=== PATIENT | male | born 1950 | race Caucasian/White ===

== ENCOUNTER 2017-04-17 23:31 | Emergency (ER) | payer MEDICARE, OTHER ==
[~2017-04-17] VITALS: Ht 172.7 cm; Wt 78.0 kg
[~2017-04-17 23:31] MED LIST: ASPI81TA3 PO; ATOR40TA68 PO; CLOP75TA4 PO; FAMO20TA18 PO; METO50TA16 PO; TAMS-14 PO
[2017-04-17 23:33] VITALS: Ht 172.7 cm; Wt 78.0 kg
--- NOTE | 2017-04-18 01:46 | ERA ---
ER Documentation Chief Complaint Date/Time DATE: 04/18/17 TIME: 01:45 Chief Complaint Intermittent chest pain HPI The patient is a 66-year-old male, presenting to the ER because of intermittent chest pain for the last 5-6 days. He had a negative stress test about 4 days ago. He went to see his doctor 3 days ago because of recurrent symptoms who assured him. He came to the ER because of recurrent symptoms. He denies any chest pain at this time. He does not smoke nor drink Past medical history: CAD, gout, dyslipidemia, hypertension, BPH Past surgical history: Stent PCI ROS All systems reviewed and are negative except as per history of present illness. Medications Home Meds Active Scripts Atorvastatin* (Atorvastatin*) 40 Mg Tablet, 40 MG PO DAILY@21 for 30 Days, TAB 5 Refills Prov:TENA AGUILAR S. 07/21/16 Famotidine* (Famotidine*) 20 Mg Tablet, 20 MG PO DAILY for 30 Days, TAB 3 Refills Prov:TENA AGUILAR S. 07/21/16 Clopidogrel Bisulfate* (Clopidogrel Bisulfate*) 75 Mg Tablet, 75 MG PO DAILY for 30 Days, TAB 8 Refills Prov:TENA AGUILAR S. 07/21/16 Aspirin* (Aspirin* Chew) 81 Mg Tab.chew, 81 MG PO DAILY for 30 Days, TAB.CHEW 8 Refills Prov:JEFFTENA S. 07/21/16 Metoprolol Succinate* (Toprol XL*) 50 Mg Tab.er.24h, 50 MG PO DAILY for 30 Days , TAB 4 Refills Prov:TENA AGUILAR S. 07/21/16 Reported Medications Tamsulosin Hcl* (Flomax*) 0.4 Mg Cap.er.24h, 0.4 MG PO BID, CAP 12/08/14 Allergies Allergies: Coded Allergies: penicillin G (Verified Allergy, Severe, 08/24/16) Penicillins (Verified Allergy, Unknown, 08/24/16) PMhx/Soc History of Surgery: Yes (KIDNEY CYST REMOVED) Anesthesia Reaction: No Hx Neurological Disorder: No Hx Respiratory Disorders: No Hx Cardiac Disorders: Yes (CAD) Hx Psychiatric Problems: No Hx Miscellaneous Medical Probl: Yes (GOUT) Hx Alcohol Use: No Hx Substance Use: No Hx Tobacco Use: No Physical Exam Vitals Vital Signs Date Time Temp Pulse Resp B/P Pulse Ox O2 Delivery O2 Flow Rate FiO2 04/18/17 04:45 51 14 146/69 99 Room Air 04/18/17 04:00 47 12 144/71 98 Room Air 04/18/17 02:00 49 12 138/64 98 Room Air 04/17/17 23:33 98.8 60 18 178/84 97 Physical Exam Const: No acute distress. Head: Atraumatic. Eyes: Normal Conjunctiva. ENT: Normal External Ears, Nose and Mouth. Neck: Full range of motion. No meningismus. Resp: Clear to auscultation bilaterally. Cardio: Regular rate and rhythm, no murmurs. Abd: Soft, non distended, normal bowel sounds, non tender. Skin: No petechiae or rashes. Back: No midline or flank tenderness. Ext: No cyanosis, or edema. Neur: Awake and alert. No focal deficit Psych: Normal Mood and Affect. Result Diagram: 04/18/17 0206 04/18/17 0206 Results 24 hrs Laboratory Tests Test 04/18/17 02:06 04/18/17 03:12 White Blood Count 6.510^3/ul Red Blood Count 4.4810^6/ul Hemoglobin 12.2g/dl Hematocrit 39.0% Mean Corpuscular Volume 87.1fl Mean Corpuscular Hemoglobin 27.2pg Mean Corpuscular Hemoglobin Concent 31.3g/dl Red Cell Distribution Width 14.6% Platelet Count 52190^3/UL Mean Platelet Volume 10.1fl Neutrophils % 62.9% Lymphocytes % 24.7% Monocytes % 7.7% Eosinophils % 3.4% Basophils % 0.8% Nucleated Red Blood Cells % 0.0/100WBC Neutrophils # 4.110^3/ul Lymphocytes # 1.610^3/ul Monocytes # 0.510^3/ul Eosinophils # 0.210^3/ul Basophils # 0.110^3/ul Nucleated Red Blood Cells # 0.010^3/ul Prothrombin Time 13.1Sec Prothrombin Time Ratio 1.0 INR International Normalized Ratio 0.99 Activated Partial Thromboplast Time 30.7Sec Sodium Level 143mmol/L Potassium Level 4.9mmol/L Chloride Level 115mmol/L Carbon Dioxide Level 24mmol/L Anion Gap 9 Blood Urea Nitrogen 46mg/dl Creatinine 2.27mg/dl Glucose Level 88mg/dl Calcium Level 8.8mg/dl Troponin I < 0.012ng/ml < 0.012ng/ml Creatine Kinase 360IU/L Creatine Kinase Index 0.5 Creatinine Kinase MB (Mass) 1.76ng/ml Procedures/MDM [place] [id number] Radiology Main Line: [phone] DIAGNOSTIC IMAGING REPORT Patient: PRISCILA MEDINA : 1950 Age: 66 Sex: M MR #: [id number] DOS: 04/18/17 0147 Ordering MD: SHAKEEL MARTINEZ MD Location: E/R Room/Bed: PROCEDURE: CHEST - 1 VIEW CLINICAL INDICATION: 66-year-old male with chest pain. TECHNIQUE: A single frontal AP semi-erect portable view of the chest was performed. The images were reviewed on a PACS workstation. COMPARISON: Chest x-ray July 18, 2016. FINDINGS: The cardiomediastinal silhouette has a normal appearance. There is no evidence for an infiltrate. There is no evidence for congestive heart failure. There is no evidence for pneumothorax. The osseous structures are intact. IMPRESSION: No evidence for active cardiopulmonary disease. .Fidencio Flores MD, MD Date Time Electronically viewed and signed by .Fidencio Flores MD, MD on 04/18/2017 03:15 .M/ CC: SHAKEEL MARTINEZ MD EKG: Read by emergency physician Rate/Rhythm: Normal Sinus Rhythm 57 beats/min QRS, ST, T-waves: No ST elevation, no T inversion, right ruby axis Impression: Abnormal EKG MEDICAL MAKING DECISION: The patient is a 66-year-old male with multiple cardiac risk factors, presenting with acute intermittent chest pain that is concerning for ACS. The differential diagnoses considered include but are not limited to acute coronary syndrome, acute myocardial infarction, pericarditis, pulmonary embolism , aortic dissection, pneumonia, pleural effusion, pneumothorax, GERD, chest wall pain. Departure Diagnosis: Primary Impression: Chest pain Condition: Stable Comments I recommended admitting the patient for further testing, however he declined The patient signed out AGAINST MEDICAL ADVICE. Risks, benefits, alternatives were explained to the patient. Risks include but not limited to and permanent disability SHAKEEL MARTINEZ MD April 18, 2017 01:46
[2017-04-18 02:28] LABS: ADD SCAN DIFF NO
[2017-04-18 02:32] LABS: BASOPHIL # 0.1 10^3/ul (0.0-0.1); BASOPHILS % 0.8 % (0.0-2.0); EOSINOPHILS # 0.2 10^3/ul (0.0-0.5); EOSINOPHILS % 3.4 % (0.0-7.0); HEMOGLOBIN 12.2 g/dl (14.0-18.0); LYMPHOCYTES # 1.6 10^3/ul (0.8-2.9); LYMPHOCYTES % 24.7 % (15.0-51.0); MEAN CORPUSCULAR HEMOGLOBIN 27.2 pg (29.0-33.0); MEAN CORPUSCULAR HGB CONC 31.3 g/dl (32.0-37.0); MEAN CORPUSCULAR VOLUME 87.1 fl (82.0-101.0); MEAN PLATELET VOLUME 10.1 fl (7.4-10.4); MONOCYTE # 0.5 10^3/ul (0.3-0.9); MONOCYTES % 7.7 % (0.0-11.0); NEUTROPHIL # 4.1 10^3/ul (1.6-7.5); NEUTROPHILS % 62.9 % (39.0-77.0); PLATELET COUNT 229 10^3/UL (140-415); RED BLOOD COUNT 4.48 10^6/ul (4.70-6.10); RED CELL DISTRIBUTION WIDTH 14.6 % (11.5-14.5); WHITE BLOOD COUNT 6.5 10^3/ul (4.8-10.8)
[2017-04-18 02:47] LABS: CHLORIDE 115 mmol/L (97-110); INR 0.99; PROTIME 13.1 Sec (12.2-14.2)
[2017-04-18 02:48] LABS: PARTIAL THROMBOPLASTIN TIME 30.7 Sec (25.0-35.0); POTASSIUM 4.9 mmol/L (3.5-5.1); SODIUM 143 mmol/L (135-144)
[2017-04-18 02:50] LABS: CREATININE 2.27 mg/dl (0.61-1.24)
[2017-04-18 02:51] LABS: ANION GAP 9 (8-16); BLOOD UREA NITROGEN 46 mg/dl (7-20); CALCIUM 8.8 mg/dl (8.4-10.2); CARBON DIOXIDE 24 mmol/L (21-31); GLUCOSE 88 mg/dl (70-220)
--- NOTE | 2017-04-18 03:16 | RADRPT ---
PROCEDURE: CHEST - 1 VIEW CLINICAL INDICATION: 66-year-old male with chest pain. TECHNIQUE: A single frontal AP semi-erect portable view of the chest was performed. The images we re reviewed on a PACS workstation. COMPARISON: Chest x-ray July 18, 2016. FINDINGS: The cardiomediastinal silhouette has a normal appearance. There is no evidence for an infiltrate. There is no evidence for congestive heart failure. There is no evidence for pneumothorax. The osseou s structures are intact. IMPRESSION: No evidence for active cardiopulmonary disease. .Fidencio Flores MD, Date Time Electronically viewed and signed by .Fidencio Flores MD, on 04/18/2017 03:15 .M/
[2017-04-18 03:28] LABS: TROPONIN-I < 0.012 ng/ml (0.00-0.12)
[2017-04-18 03:58] LABS: CREATINE KINASE 360 IU/L (23-200)
[2017-04-18 04:45] VITALS: BP 146/69; PULSE 51; RESP 14
[2017-04-18 04:45] LABS: CK-MB 1.76 ng/ml (0.0-2.4); TROPONIN-I < 0.012 ng/ml (0.00-0.12)
== END 2017-04-18 04:50 | disposition left against medical advice (07) ==
LOC: E/R 23:31
DX: R07.9 Chest pain, unspecified (principal); I25.10 Atherosclerotic heart disease of native coronary artery without angina pectoris; I10 Essential (primary) hypertension; Z79.82 Long term (current) use of aspirin; Z98.61 Coronary angioplasty status
CPT/HCPCS: 36415; 71010; 80048; 82550; 82553; 84484; 85025; 85610; 85730; 93005

== ENCOUNTER → 2017-04-20 | Outpatient (CLI) | payer MEDICARE, OTHER | END | disposition home or self-care (01) | LOC: CRE 13:15 | PROVIDERS: ATTEND Internal Medicine Interventional Cardiology | DX: I25.2 Old myocardial infarction (principal); Z98.61 Coronary angioplasty status | CPT/HCPCS: 93797 ==

== ENCOUNTER 2017-09-02 21:26 | Inpatient (IN) | payer MEDICARE, OTHER ==
[~2017-09-02] VITALS: Ht 170.2 cm; Wt 76.1 kg
[~2017-09-02 21:26] MED LIST changes: +METO-319 PO; -METO50TA16 PO
[2017-09-02] MEDS ORDERED: ASPIRIN 325 MG TAB PO STA (21:56)
[2017-09-02] MEDS ORDERED: NITROGLYCERIN 2% 1 GM OINT PKT TD STA (21:56)
[2017-09-02] MEDS ORDERED: ONDANSETRON 4 MG INJ IV STA (21:56)
[2017-09-02] MEDS ORDERED: morphine 4 MG/ML VIAL IV STA (21:56)
--- NOTE | 2017-09-02 22:14 | ERA ---
ER Documentation Chief Complaint Date/Time DATE: 09/02/17 TIME: 22:13 Chief Complaint chest pain HPI The patient is a 67-year-old male, presenting to the ER because of left upper back pain radiating to the left upper chest that began about 7 PM while he was watching TV. He had similar symptoms previously, is 12/31, no aggravating or relieving factor, denies chest pain with exertion/vomiting/diaphoresis, denies abdominal pain, vomiting, dysuria, diarrhea. He does not smoke nor drink Past medical history: Dyslipidemia, hypertension, BPH, CAD, gout, chronic kidney disease Past surgical history: He had total 8 stents PCI, last stent was about a year ago ROS All systems reviewed and are negative except as per history of present illness. Medications Home Meds Active Scripts Atorvastatin* (Atorvastatin*) 40 Mg Tablet, 40 MG PO DAILY@21 for 30 Days, TAB 5 Refills Prov:TENA AGUILAR S. 07/21/16 Famotidine* (Famotidine*) 20 Mg Tablet, 20 MG PO DAILY for 30 Days, TAB 3 Refills Prov:TENA AGUILAR S. 07/21/16 Clopidogrel Bisulfate* (Clopidogrel Bisulfate*) 75 Mg Tablet, 75 MG PO DAILY for 30 Days, TAB 8 Refills Prov:JEFFTENA S. 07/21/16 Aspirin* (Aspirin* Chew) 81 Mg Tab.chew, 81 MG PO DAILY for 30 Days, TAB.CHEW 8 Refills Prov:JEFFTENA S. 07/21/16 Metoprolol Succinate* (Toprol XL*) 50 Mg Tab.er.24h, 50 MG PO DAILY for 30 Days , TAB 4 Refills Prov:TENA AGUILAR S. 07/21/16 Reported Medications Tamsulosin Hcl* (Flomax*) 0.4 Mg Cap.er.24h, 0.4 MG PO BID, CAP 12/08/14 Allergies Allergies: Coded Allergies: penicillin G (Verified Allergy, Severe, 08/24/16) Penicillins (Verified Allergy, Unknown, 08/24/16) PMhx/Soc History of Surgery: Yes (KIDNEY CYST REMOVED, 8 Stents placed) Anesthesia Reaction: No Hx Neurological Disorder: No Hx Respiratory Disorders: No Hx Cardiac Disorders: Yes (CAD, 8 Stents placed, HTN) Hx Psychiatric Problems: No Hx Miscellaneous Medical Probl: Yes (GOUT) Hx Alcohol Use: No Hx Substance Use: No Hx Tobacco Use: No Smoking Status: Never smoker Physical Exam Vitals Vital Signs Date Time Temp Pulse Resp B/P Pulse Ox O2 Delivery O2 Flow Rate FiO2 09/02/17 22:23 116/56 09/02/17 21:35 98.3 63 16 142/75 96 Physical Exam Const: No acute distress. Head: Atraumatic. Eyes: Normal Conjunctiva. ENT: Normal External Ears, Nose and Mouth. Neck: Full range of motion. No meningismus. Resp: Clear to auscultation bilaterally. Cardio: Regular rate and rhythm. Abd: Soft, non distended, normal bowel sounds, non tender. Skin: No petechiae or rashes. Back: No midline or flank tenderness. Ext: No cyanosis, or edema. Neur: Awake and alert. No focal deficit Psych: Normal Mood and Affect. Result Diagram: 09/02/17219909/02/172199 Results 24 hrs Laboratory Tests Test 09/02/17 22:00 White Blood Count 5.510^3/ul Red Blood Count 4.5810^6/ul Hemoglobin 13.2g/dl Hematocrit 41.1% Mean Corpuscular Volume 89.7fl Mean Corpuscular Hemoglobin 28.8pg Mean Corpuscular Hemoglobin Concent 32.1g/dl Red Cell Distribution Width 14.8% Platelet Count 96435^3/UL Mean Platelet Volume 9.8fl Neutrophils % 70.1% Lymphocytes % 16.6% Monocytes % 8.9% Eosinophils % 3.1% Basophils % 0.4% Nucleated Red Blood Cells % 0.0/100WBC Neutrophils # 3.910^3/ul Lymphocytes # 0.910^3/ul Monocytes # 0.510^3/ul Eosinophils # 0.210^3/ul Basophils # 0.010^3/ul Nucleated Red Blood Cells # 0.010^3/ul Prothrombin Time 12.5Sec Prothrombin Time Ratio 1.0 INR International Normalized Ratio 0.93 Activated Partial Thromboplast Time 30.3Sec Sodium Level 139mmol/L Potassium Level 4.5mmol/L Chloride Level 109mmol/L Carbon Dioxide Level 21mmol/L Anion Gap 14 Blood Urea Nitrogen 44mg/dl Creatinine 2.91mg/dl Glucose Level 119mg/dl Calcium Level 8.4mg/dl Total Bilirubin 0.3mg/dl Direct Bilirubin 0.00mg/dl Indirect Bilirubin 0.3mg/dl Aspartate Amino Transf (AST/SGOT) 23IU/L Alanine Aminotransferase (ALT/SGPT) 29IU/L Alkaline Phosphatase 84IU/L Troponin I < 0.012ng/ml Total Protein 7.2g/dl Albumin 3.7g/dl Globulin 3.50g/dl Albumin/Globulin Ratio 1.05 Current Medications Medications (Trade) Dose Ordered Sig/Jorge Route PRN Reason Start Time Stop Time Status Last Admin Dose Admin Aspirin (Aspirin) 325 mg ONCE STAT PO 09/02/17 21:56 09/02/17 21:57 DC 09/02/17 22:28 Nitroglycerin (Nitroglycerin 2% Oint) 1 inch ONCE STAT TD 09/02/17 21:56 09/02/17 21:57 DC Morphine Sulfate (morphine) 4 mg ONCE STAT IV 09/02/17 21:56 09/02/17 21:57 Cancel Ondansetron HCl (Zofran Inj) 4 mg ONCE STAT IV 09/02/17 21:56 09/02/17 21:57 Cancel Procedures/MDM EK hrs. read by emergency physician Rate/Rhythm: Normal Sinus Rhythm 64 beats/min QRS, ST, T-waves: No ST elevation, no T inversion sinus arrhythmia, inferior Q waves Impression: Abnormal EKG EK hrs. read by emergency physician Rate/Rhythm: Normal Sinus Rhythm 62 beats/min QRS, ST, T-waves: No ST elevation, no T inversion sinus arrhythmia, RVH Impression: Abnormal EKG MEDICAL MAKING DECISION: The patient is a 67-year-old male with multiple cardiac risk factors, with acute chest pain that is concerning for ACS. He was treated with aspirin 325 mg p.o. and 1 inch of nitroglycerin for acute chest pain with good response. The differential diagnoses considered include but are not limited to acute coronary syndrome, acute myocardial infarction, pericarditis, pulmonary embolism , aortic dissection, pneumonia, pleural effusion, pneumothorax, GERD, chest wall pain. Departure Diagnosis: Primary Impression: Chest pain Additional Impression: Anemia Condition: Stable Comments I discussed the findings with the patient. I discussed the patient with the hospitalist Dr. Roche at 11:10 PM who was made aware of the lab, the treatment, the patient condition. The patient is admitted to SHAKEEL Cui MD Sep 02, 2017 22:14
[2017-09-02 22:19] LABS: BASOPHILS % 0.4 % (0.0-2.0); EOSINOPHILS # 0.2 10^3/ul (0.0-0.5); EOSINOPHILS % 3.1 % (0.0-7.0); HEMATOCRIT 41.1 % (42.0-52.0); HEMOGLOBIN 13.2 g/dl (14.0-18.0); LYMPHOCYTES # 0.9 10^3/ul (0.8-2.9); LYMPHOCYTES % 16.6 % (15.0-51.0); MEAN CORPUSCULAR HEMOGLOBIN 28.8 pg (29.0-33.0); MEAN CORPUSCULAR HGB CONC 32.1 g/dl (32.0-37.0); MEAN CORPUSCULAR VOLUME 89.7 fl (82.0-101.0); MEAN PLATELET VOLUME 9.8 fl (7.4-10.4); MONOCYTE # 0.5 10^3/ul (0.3-0.9); MONOCYTES % 8.9 % (0.0-11.0); NEUTROPHIL # 3.9 10^3/ul (1.6-7.5); NEUTROPHILS % 70.1 % (39.0-77.0); PLATELET COUNT 194 10^3/UL (140-415); RED BLOOD COUNT 4.58 10^6/ul (4.70-6.10); RED CELL DISTRIBUTION WIDTH 14.8 % (11.5-14.5); WHITE BLOOD COUNT 5.5 10^3/ul (4.8-10.8)
[2017-09-02 22:37] LABS: INR 0.93; PARTIAL THROMBOPLASTIN TIME 30.3 Sec (25.0-35.0); PROTIME 12.5 Sec (12.2-14.2)
[2017-09-02 22:40] LABS: ALANINE AMINOTRANSFERASE 29 IU/L (13-69); ALBUMIN 3.7 g/dl (3.3-4.9); ALBUMIN/GLOBULIN RATIO 1.05; ALKALINE PHOSPHATASE 84 IU/L (42-121); ANION GAP 14 (8-16); ASPARTATE AMINO TRANSFERASE 23 IU/L (15-46); BILIRUBIN,INDIRECT 0.3 mg/dl (0-1.1); BILIRUBIN,TOTAL 0.3 mg/dl (0.2-1.3); BLOOD UREA NITROGEN 44 mg/dl (7-20); CALCIUM 8.4 mg/dl (8.4-10.2); CARBON DIOXIDE 21 mmol/L (21-31); CHLORIDE 109 mmol/L (97-110); CREATININE 2.91 mg/dl (0.61-1.24); GLUCOSE 119 mg/dl (70-220); POTASSIUM 4.5 mmol/L (3.5-5.1); SODIUM 139 mmol/L (135-144); TOTAL PROTEIN 7.2 g/dl (6.1-8.1)
[2017-09-02 22:53] LABS: TROPONIN-I < 0.012 ng/ml (0.00-0.12)
--- NOTE | 2017-09-02 23:13 | RADRPT ---
AMENDMENT: 09/02/2017 11:38:20 PM Krishna Burrows MD ADDENDUM: FINDINGS: New mild left lung base atelectasis. Previously seen mild discoid atelectasis at the left lung base is otherwise resolved. PROCEDURE: XR Chest. CLINICAL INDICATION: Chest pain TECHNIQUE: Single frontal view of the chest COMPARISON: 07/16/2016 FINDINGS: The cardiomediastinal silhouette is within normal limits. The lungs are clear. No signs of pleural f luid or pneumothorax are seen. The osseous structures and soft tissues are unremarkable. IMPRESSION: No evidence for active cardiopulmonary disease. RPTAT: [facility] Physician Sadie Date Time Electronically viewed and signed by Physician Sadie on 09/02/2017 23:40 RS/
[2017-09-03] VITALS (13 sets, daily range): BP systolic 112–147; BP diastolic 63–77; PULSE 50–66; RESP 17–19; Ht 170.2 cm; Wt 76.1 kg
[2017-09-03] MEDS ORDERED: ISOS30TA5 PO (00:26)
[2017-09-03] MEDS ORDERED: TICA90TA PO (00:26)
[2017-09-03] MEDS ORDERED: AMLO2.5T78 PO (00:26)
[2017-09-03] MEDS ORDERED: ALLO300T2 PO (00:26)
[2017-09-03] MEDS ORDERED: CARV3.1260 PO (00:26)
[2017-09-03] MEDS ORDERED: RANO500T2 PO (00:26)
[2017-09-03] MEDS ORDERED: morphine 2 MG INJ IV PRN (02:00)
[2017-09-03] MEDS ORDERED: ONDANSETRON 4 MG INJ IV PRN (02:00)
[2017-09-03] MEDS ORDERED: NITROGLYCERIN (SL) 0.4 MG TAB SL PRN (02:00)
[2017-09-03] MEDS ORDERED: FAMOTIDINE 20 MG TAB PO ONE (02:00)
--- NOTE | 2017-09-03 06:24 | HP ---
Date/Time of Note Date/Time of Note DATE: 09/03/17 TIME: 06:08 Assessment/Plan VTE Prophylaxis VTE Prophylaxis Intervention: heparin Lines/Catheters IV [facility] Saline Lock Urinary Cath still in place: No Assessment/Plan Assessment/Plan 1. Chest pain, rule out ACS -Continue telemetry monitoring -Trend troponin -Supplemental oxygen, aspirin, Brilinta, beta-trinity, statin, as needed nitro and morphine -2D echo and a cardiology consult -Note that the patient had cardiac cath 6 months ago at [facility] and per patient, there was a 40% blockage. 2. History of CAD, status post PCI with a total of 8 stents -See #1 3. CKD, stable -Avoid nephrotoxins -Consider nephrology consult 4. Hypertension: BP within acceptable range -Continue antihypertensives with adjustment as needed 5. Gout -No acute flare -Continue allopurinol 6. History of BPH, patient not symptomatic -Continue home meds HPI/ROS Admit Date/Time Admit Date/Time Sep 02, 2017 at 23:08 Hx of Present Illness This is a 67-year-old male with a history of CAD status post PCI with stent 8, HTN, BPH, CKD and gout who presented to the emergency department complaining of chest pain. He said chest pain started a few hours prior to presentation to the ER. It substernal with associated left arm numbness. He said his chest pain started because his blood pressure was high when he measured at home (SBP 145). He said he was also feeling slightly anxious. Denied shortness of breath , nausea, vomiting or diaphoresis. He had a Lexiscan stress test in 2014 here which showed small moderate size reversible perfusion defect in the inferior and inferolateral wall, unchanged compared to the study in Nov, 2011. He said his last cardiac cath was 6 month ago at the [facility]. He was told he had 40% blockage. He also reported having had bilateral lower extremity swelling, which was attributed to the amlodipine that he was taking. The swelling resolved after amlodipine dose was reduced. He said his soil analyst is Dr. Barragan. He had a cardiology appointment in July but he said he could not make it. When he presented to the ER today, EKG with no ST-T wave abnormalities and the first troponin is negative. Chest x-ray with no active cardiopulmonary disease. He is currently admitted to telemetry unit and he has been bradycardic with a heart rate in the 40s, the lowest so far being 44. PMH/Family/Social Social History Smoking Status: Never smoker Exam/Review of Systems Vital Signs Vitals Vital Signs Date Time Temp Pulse Resp B/P Pulse Ox O2 Delivery O2 Flow Rate FiO2 09/03/17 04:32 59 09/03/17 04:17 97.7 19 147/77 98 09/03/17 02:15 Room Air Exam Constitutional: alert, oriented, well developed Head: atraumatic, normocephalic Eyes: EOMI, PERRL Respiratory: clear to auscultation, normal air movement Cardiovascular: other (Bradycardic with regular rhythm) Extremities: normal pulses Labs Result Diagram: 09/02/17219909/02/172199 Medications Medications Current Medications Heparin Sodium (Porcine) (Heparin (5000 Units/0.5 ml)) 5,000 unit BID SC ; Start 09/03/17 at 09:00 Nitroglycerin (Nitroglycerin (Sl Tab) 0.4 Mg) 1 tab Q5M PRN SL ANGINA; Start 09/03/17 at 02:00 Morphine Sulfate (morphine) 2 mg Q4H PRN IV MODERATE PAIN LEVEL 4-6; Start at 02:00 Ondansetron HCl (Zofran Inj) 4 mg Q6H PRN IV NAUSEA AND/OR VOMITING; Start at 02:00 Allopurinol (Zyloprim) 300 mg DAILY PO ; Start 09/03/17 at 09:00 Amlodipine Besylate (Norvasc) 2.5 mg DAILY PO ; Start 09/03/17 at 09:00 Aspirin (Aspirin) 81 mg DAILY PO ; Start 09/03/17 at 09:00 Atorvastatin Calcium (Lipitor) 40 mg HS PO ; Start 09/03/17 at 21:00 Carvedilol (Coreg) 3.125 mg BID PO ; Start 09/03/17 at 09:00 Isosorbide Mononitrate (Imdur) 30 mg DAILY PO ; Start 09/03/17 at 09:00 Ranolazine (Ranexa) 500 mg Q12 PO ; Start 09/03/17 at 09:00 Ticagrelor (Brilinta) 90 mg BID PO ; Start 09/03/17 at 09:00 MEDINA MEJIA MD Sep 03, 2017 06:20
[2017-09-03 06:33] LABS: BASOPHIL # 0.1 10^3/ul (0.0-0.1); BASOPHILS % 0.8 % (0.0-2.0); EOSINOPHILS # 0.3 10^3/ul (0.0-0.5); HEMATOCRIT 42.1 % (42.0-52.0); HEMOGLOBIN 12.9 g/dl (14.0-18.0); LYMPHOCYTES # 1.5 10^3/ul (0.8-2.9); LYMPHOCYTES % 24.7 % (15.0-51.0); MEAN CORPUSCULAR HGB CONC 30.6 g/dl (32.0-37.0); MEAN CORPUSCULAR VOLUME 91.3 fl (82.0-101.0); MONOCYTE # 0.6 10^3/ul (0.3-0.9); MONOCYTES % 10.1 % (0.0-11.0); NEUTROPHIL # 3.7 10^3/ul (1.6-7.5); NEUTROPHILS % 59.3 % (39.0-77.0); PLATELET COUNT 194 10^3/UL (140-415); RED BLOOD COUNT 4.61 10^6/ul (4.70-6.10); WHITE BLOOD COUNT 6.2 10^3/ul (4.8-10.8)
[2017-09-03 07:03] LABS: ALBUMIN 3.5 g/dl (3.3-4.9); ALBUMIN/GLOBULIN RATIO 1.06; BILIRUBIN,INDIRECT 0.4 mg/dl (0-1.1); BILIRUBIN,TOTAL 0.4 mg/dl (0.2-1.3); CALCIUM 8.6 mg/dl (8.4-10.2); CREATININE 2.85 mg/dl (0.61-1.24); MAGNESIUM 2.2 mg/dl (1.7-2.5); PHOSPHORUS 3.8 mg/dl (2.5-4.9); TOTAL PROTEIN 6.8 g/dl (6.1-8.1)
[2017-09-03 07:07] LABS: TROPONIN-I 0.014 ng/ml (0.00-0.12)
[2017-09-03] MEDS ORDERED: ALLOPURINOL 300 MG TAB PO SCH (09:00)
[2017-09-03] MEDS: ISOSORBIDE MONONITRATE(SR)30 MG TAB PO SCH (09:04)
[2017-09-03] MEDS: RANOLAZINE (SR) 500 MG TAB PO SCH ×2 (09:04→20:10)
[2017-09-03] MEDS: TICAGRELOR 90 MG TABLET PO SCH ×2 (09:05→20:14)
[2017-09-03] MEDS: ASPIRIN 81 MG TAB PO SCH (09:06)
[2017-09-03] MEDS: HEPARIN 5,000 UNIT/0.5 ML VIAL SC SCH ×2 (09:06→20:15)
[2017-09-03] MEDS: AMLODIPINE 2.5 MG TAB PO SCH (09:07)
--- NOTE | 2017-09-03 09:25 | PN ---
Date/Time of Note Date/Time of Note DATE: 09/03/17 TIME: 09:21 Assessment/Plan VTE Prophylaxis VTE Prophylaxis Intervention: heparin Lines/Catheters IV [facility]from [facility]): Saline Lock Urinary Cath still in place: No Assessment/Plan Chief Complaint/Hosp Course 67-year-old male with a past medical history of multiple stents placed in the past with the most recent cath done 6 mos ago at [facility] and per patient, there was a 40% blockage. 1. Chest pain, rule out ACS. Serial EKG and serial troponin unremarkable. -Continue telemetry monitoring -Supplemental oxygen, aspirin, PRN nitro and morphine -2D echo and a cardiology consult 2. Coronary artery disease with multiple PCI with multiple stents. -on Brilinta/beta-trinity/statin 3. CKD.Baseline creatinine 2.5-2.9.Renal fxn appears at baseline. -Avoid nephrotoxins, monitor renal function closely. -We will call patient's outpt net software engineer group. 4. Hypertension: BP within acceptable range -Continue antihypertensives with adjustment as needed 5. Gout -on allopurinol 6. BPH -Continue home meds HSQ prophylaxis. Plan: Cardiology consult requested. We will follow-up with recommendations. Patient was seen in collaboration with . Problems: Subjective 24 Hr Interval Summary Free Text/Dictation Currently patient denies chest pain, palpitation, shortness of breath, nausea, vomiting, abdominal discomfort or other symptoms. He is walking in the room. Exam/Review of Systems Vital Signs Vitals Vital Signs Date Time Temp Pulse Resp B/P Pulse Ox O2 Delivery O2 Flow Rate FiO2 09/03/17 08:52 51 09/03/17 07:28 97.8 18 133/72 96 09/03/17 02:15 Room Air Intake and Output 09/02/17 09/02/17 09/03/17 15:00 23:00 07:00 Intake Total 500 ml Output Total 800 ml Balance -300 ml Exam General: Well developed,adequately built, not in any acute distress . HEENT: Normocephalic, Atraumatic, No laceration or hematoma; Eyes: PEERL, Conjunctiva clear, Anicteric sclera Neck: Supple without any lymphadenopathy, nontender, no JVD, no carotid bruits, trachea midline, no thyromegaly Cardiac: S1, S2 auscultated, regular rhythm and rate, no mumurs or gallop Pulmonary: Normal respiratory effort. Chest clear to auscultation bilaterally, no adventitious breath sounds GI: Abdomen normal to inspection. Soft, non tender, non- distended, no masses, no rebound tenderness or guarding. Bowel sounds active on all four quadrants Genitourinary: Deferred Extremities: No cyanosis, clubbing, or edema. Pulses [2+] bilaterally. Full ROM on all four extremities. No focal weakness appreciated. Neurologic: Alert to person, place, time, and situation. Affect appropriate, intact sensation. Skin: Clean,dry, and intact. No ecchymosis, no rashes, or lesions Results Result Diagram: 09/03/17 0539 09/03/17 0539 Results 24 hrs Laboratory Tests Test 09/02/17 22:00 09/03/17 05:39 White Blood Count 5.5 6.2 Red Blood Count 4.58 L 4.61 L Hemoglobin 13.2 L 12.9 L Hematocrit 41.1 L 42.1 Mean Corpuscular Volume 89.7 91.3 Mean Corpuscular Hemoglobin 28.8 L 28.0 L Mean Corpuscular Hemoglobin Concent 32.1 30.6 L Red Cell Distribution Width 14.8 H 15.0 H Platelet Count 194 194 Mean Platelet Volume 9.8 10.0 Neutrophils % 70.1 59.3 Lymphocytes % 16.6 24.7 Monocytes % 8.9 10.1 Eosinophils % 3.1 4.0 Basophils % 0.4 0.8 Nucleated Red Blood Cells % 0.0 0.0 Neutrophils # 3.9 3.7 Lymphocytes # 0.9 1.5 Monocytes # 0.5 0.6 Eosinophils # 0.2 0.3 Basophils # 0.0 0.1 Nucleated Red Blood Cells # 0.0 0.0 Prothrombin Time 12.5 Prothrombin Time Ratio 1.0 INR International Normalized Ratio 0.93 Activated Partial Thromboplast Time 30.3 Sodium Level 139 144 Potassium Level 4.5 5.0 Chloride Level 109 110 Carbon Dioxide Level 21 24 Anion Gap 14 15 Blood Urea Nitrogen 44 H 42 H Creatinine 2.91 H 2.85 H Glucose Level 119 94 Calcium Level 8.4 8.6 Total Bilirubin 0.3 0.4 Direct Bilirubin 0.00 0.00 Indirect Bilirubin 0.3 0.4 Aspartate Amino Transf (AST/SGOT) 23 18 Alanine Aminotransferase (ALT/SGPT) 29 27 Alkaline Phosphatase 84 86 Troponin I < 0.012 0.014 Total Protein 7.2 6.8 Albumin 3.7 3.5 Globulin 3.50 H 3.30 H Albumin/Globulin Ratio 1.05 1.06 Phosphorus Level 3.8 Magnesium Level 2.2 Medications Medications Current Medications Heparin Sodium (Porcine) (Heparin (5000 Units/0.5 ml)) 5,000 unit BID SC Last administered on 09/03/17 09:06; Admin Dose 5,000 UNIT; Start 09/03/17 at 09: 00 Nitroglycerin (Nitroglycerin (Sl Tab) 0.4 Mg) 1 tab Q5M PRN SL ANGINA; Start 09/03/17 at 02:00 Morphine Sulfate (morphine) 2 mg Q4H PRN IV MODERATE PAIN LEVEL 4-6; Start at 02:00 Ondansetron HCl (Zofran Inj) 4 mg Q6H PRN IV NAUSEA AND/OR VOMITING; Start at 02:00 Allopurinol (Zyloprim) 300 mg DAILY PO Last administered on 09/03/17 09:06; Admin Dose 300 MG; Start 09/03/17 at 09:00 Amlodipine Besylate (Norvasc) 2.5 mg DAILY PO Last administered on 09/03/17 09:07; Admin Dose 2.5 MG; Start 09/03/17 at 09:00 Aspirin (Aspirin) 81 mg DAILY PO Last administered on 09/03/17 09:06; Admin Dose 81 MG; Start 09/03/17 at 09:00 Atorvastatin Calcium (Lipitor) 40 mg HS PO ; Start 09/03/17 at 21:00 Carvedilol (Coreg) 3.125 mg BID PO Last administered on 09/03/17 09:04; Admin Dose 3.125 MG; Start 09/03/17 at 09:00 Isosorbide Mononitrate (Imdur) 30 mg DAILY PO Last administered on 09/03/17 09:04; Admin Dose 30 MG; Start 09/03/17 at 09:00 Ranolazine (Ranexa) 500 mg Q12 PO Last administered on 09/03/17 09:04; Admin Dose 500 MG; Start 10/14/17 at 09:00 Ticagrelor (Brilinta) 90 mg BID PO Last administered on 09/03/17t 09:05; Admin Dose 90 MG; Start 09/03/17 at 09:00 ADIEL SOLO NP Sep 03, 2017 09:25 ADIEL SOLO NP Sep 03, 2017 09:25
--- NOTE | 2017-09-03 11:51 | CONS ---
Date/Time of Note Date/Time of Note DATE: 09/03/17 TIME: 11:41 Assessment/Plan Assessment/Plan Chief Complaint/Hosp Course 1. Atypical chest pain 2) CAD 3) coronary angioplasty status 4) cardiac cath 6 months ago at [facility] with medical therapy 5). CKD, stable 6) Hypertension: Problems: Additional Assessment/Plan 1) Continue dapt 2) echo pending 3) ACS less likely 4) recommend to get records from [place] Consultation Date/Type/Reason Admit Date/Time Sep 02, 2017 at 23:08 Date of Consultation: Sep 03, 2017 Type of Consultation: cv Reason for Consultation chest pain Hx of Present Illness patient experienced mis scapular chest pain, also had chest pain left sided , localized, mild, not exertional, no sob ,no palpitations, no now symptoms Eyes: no complaints Respiratory: no complaints Cardiovascular: chest pain Gastrointestinal: no complaints Musculoskeletal: back pain Skin: no complaints Neurologic: no complaints Endocrine: no complaints Past Medical History Medical History: coronary artery disease, high cholesterol, hypertension Past Surgical History Past Surgical Hx: angioplasty Family History Significant Family History: hypertension Social History Smoking Status: Never smoker Exam/Review of Systems Vital Signs Vitals Vital Signs Date Time Temp Pulse Resp B/P Pulse Ox O2 Delivery O2 Flow Rate FiO2 09/03/17 11:23 97.8 53 18 112/63 97 09/03/17 02:15 Room Air Intake and Output 09/02/17 09/02/17 09/03/17 15:00 23:00 07:00 Intake Total 500 ml Output Total 800 ml Balance -300 ml Exam Constitutional: alert, oriented Head: atraumatic, normocephalic Neck: supple Respiratory: clear to auscultation Cardiovascular: regular rate and rhythm Gastrointestinal: soft Musculoskeletal: nl extremities to inspection Extremities: normal pulses Neurological: EXTRUDER TENDER II-XII intact Results Result Diagram: 09/03/17 0539 09/03/17 0539 Results 24 hrs Laboratory Tests Test 09/02/17 22:00 09/03/17 05:37 09/03/17 05:39 White Blood Count 5.5 6.2 Red Blood Count 4.58 L 4.61 L Hemoglobin 13.2 L 12.9 L Hematocrit 41.1 L 42.1 Mean Corpuscular Volume 89.7 91.3 Mean Corpuscular Hemoglobin 28.8 L 28.0 L Mean Corpuscular Hemoglobin Concent 32.1 30.6 L Red Cell Distribution Width 14.8 H 15.0 H Platelet Count 194 194 Mean Platelet Volume 9.8 10.0 Neutrophils % 70.1 59.3 Lymphocytes % 16.6 24.7 Monocytes % 8.9 10.1 Eosinophils % 3.1 4.0 Basophils % 0.4 0.8 Nucleated Red Blood Cells % 0.0 0.0 Neutrophils # 3.9 3.7 Lymphocytes # 0.9 1.5 Monocytes # 0.5 0.6 Eosinophils # 0.2 0.3 Basophils # 0.0 0.1 Nucleated Red Blood Cells # 0.0 0.0 Prothrombin Time 12.5 Prothrombin Time Ratio 1.0 INR International Normalized Ratio 0.93 Activated Partial Thromboplast Time 30.3 Sodium Level 139 144 Potassium Level 4.5 5.0 Chloride Level 109 110 Carbon Dioxide Level 21 24 Anion Gap 14 15 Blood Urea Nitrogen 44 H 42 H Creatinine 2.91 H 2.85 H Glucose Level 119 94 Calcium Level 8.4 8.6 Total Bilirubin 0.3 0.4 Direct Bilirubin 0.00 0.00 Indirect Bilirubin 0.3 0.4 Aspartate Amino Transf (AST/SGOT) 23 18 Alanine Aminotransferase (ALT/SGPT) 29 27 Alkaline Phosphatase 84 86 Troponin I < 0.012 0.014 Total Protein 7.2 6.8 Albumin 3.7 3.5 Globulin 3.50 H 3.30 H Albumin/Globulin Ratio 1.05 1.06 Hemoglobin A1c 5.5 Vitamin D 1,25-Dihydroxy 27.1 L Phosphorus Level 3.8 Magnesium Level 2.2 Imaging Free Text/Dictation EKG: SR, nonspecific changes, no dynamic changes Medications Medications Current Medications Heparin Sodium (Porcine) (Heparin (5000 Units/0.5 ml)) 5,000 unit BID SC Last administered on 09/03/17t 09:06; Admin Dose 5,000 UNIT; Start 09/03/17 at 09: 00 Nitroglycerin (Nitroglycerin (Sl Tab) 0.4 Mg) 1 tab Q5M PRN SL ANGINA; Start 09/03/17 at 02:00 Morphine Sulfate (morphine) 2 mg Q4H PRN IV MODERATE PAIN LEVEL 4-6; Start at 02:00 Ondansetron HCl (Zofran Inj) 4 mg Q6H PRN IV NAUSEA AND/OR VOMITING; Start at 02:00 Allopurinol (Zyloprim) 300 mg DAILY PO Last administered on 09/03/17 09:06; Admin Dose 300 MG; Start 09/03/17 at 09:00 Amlodipine Besylate (Norvasc) 2.5 mg DAILY PO Last administered on 09/03/17 09:07; Admin Dose 2.5 MG; Start 09/03/17 at 09:00 Aspirin (Aspirin) 81 mg DAILY PO Last administered on 09/03/17 09:06; Admin Dose 81 MG; Start 09/03/17 at 09:00 Atorvastatin Calcium (Lipitor) 40 mg HS PO ; Start 09/03/17 at 21:00 Carvedilol (Coreg) 3.125 mg BID PO Last administered on 09/03/17 09:04; Admin Dose 3.125 MG; Start 09/03/17 at 09:00 Isosorbide Mononitrate (Imdur) 30 mg DAILY PO Last administered on 09/03/17 09:04; Admin Dose 30 MG; Start 09/03/17 at 09:00 Ranolazine (Ranexa) 500 mg Q12 PO Last administered on 09/03/17 09:04; Admin Dose 500 MG; Start 09/03/17 at 09:00 Ticagrelor (Brilinta) 90 mg BID PO Last administered on 09/03/17 09:05; Admin Dose 90 MG; Start 09/03/17 at 09:00 MARIA A ESCAMILLA MD Sep 03, 2017 11:51
--- NOTE | 2017-09-03 12:15 | RADRPT ---
Echocardiogram Report Patient Name: PRISCILA MEDINA Gender: Male Date: 1950 Study Date: 03-Sep-2017 [place] [employer] Supervisor: CHOCO Location: I Ref. Physician: ADIEL SOLO Quality: Adequate Procedures: Transthoracic echocardiogram with complete 2D, M-Mode, and doppler examination. Indications: Chest Pain. 2D/M Mode Doppler Measurement Value Normal Ranges Measurement Value Normal Ranges AoR Diam MM 3.4 cm AV Peak Guido 1.3 m/sec ACS MM 1.9 cm AV Peak PG 7.0 mmHg LVIDd 2D 2.6 3.5 - 5.6 cm LVOT Peak Guido 0.9 m/sec LVIDs 2D 1.7 2.1 - 4.1 cm LVOT Peak PG 3.0 mmHg LVPWd 2D 1.2 0.6 - 1.1 cm MV E Peak Guido 0.6 m/sec IVSd 2D 1.9 0.6 - 1.1 cm MV A Peak Guido 0.7 m/sec EDV 2D 24.0 cm3 MV E/A 0.8 ESV 2D 5.3 cm3 MV Decel Time 205 msec LA Dimen 2D 3.0 2.3 - 4.0 cm MV Decel Colbert 3 MV E/A 0.8 PV Peak Guido 1.0 m/sec PV Peak PG 4.0 mmHg Findings Left Ventricle: Normal left ventricular systolic function. Normal left ventricular cavity size. Moderate concentric left ventricular hypertrophy. Ejection fraction is visually estimated at 65 %. Tissue Doppler/Mitral Doppler indices are consistent with impaired relaxation (Stage I diastolic dysfunction). E/E`=6. Right Ventricle: Normal right ventricular size. Normal right ventricular systolic function. Left Atrium: The left atrium is normal in size. Right Atrium: The right atrium is normal in size. Atrial Septum: Normal atrial septum. Mitral Valve: Normal appearance and function of the mitral valve with trace physiologic regurgitation. Aortic Valve: No significant aortic stenosis or insufficiency. Aortic cusps appear mildly calcified. No aortic regurgitation. Tricuspid Valve: Normal appearance and function of the tricuspid valve with trace physiologic regurgitation. Normal right ventricular systolic pressure. Pulmonic Valve: Normal pulmonic valve appearance. No evidence of pulmonic regurgitation. Pericardium: Normal pericardium with no significant pericardial effusion. No pleural effusion noted. Aorta: Normal aortic root. IVC: Normal size and normal respiratory collapse consistent with normal right atrial pressure. Pulmonary Artery: Normal pulmonary artery size. Conclusions 1.Normal left ventricular systolic function. Normal left ventricular cavity size. Moderate concentric left ventricular hypertrophy. Ejection fraction is visually estimated at 65 %. Tissue Doppler/Mitral Doppler indices are consistent with impaired relaxation (Stage I diastolic dysfunction). E/E`=6. 2.Normal right ventricular size. Normal right ventricular systolic function. 3.The left atrium is normal in size. 4.The right atrium is normal in size. 5.Normal appearance and function of the mitral valve with trace physiologic regurgitation. 6.No significant aortic stenosis or insufficiency. Aortic cusps appear mildly calcified. No aortic regurgitation. 7.Normal appearance and function of the tricuspid valve with trace physiologic regurgitation. Normal right ventricular systolic pressure. 8.Normal size and normal respiratory collapse consistent with normal right atrial pressure. Electronically Signed By: Nestor More 03-Sep-2017 12:14:44 -0700 Patient Name: PRISCILA MEDINA Study Date: 03-Sep-2017 [id number]
--- NOTE | 2017-09-03 16:20 | CONS ---
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 range , based on volume status , at base hx CAD , recent lhc CP , atypical per cards htn hx cont to monitor bp , adjust meds prn if further plans per cards for angio , would pre tx w iv NS , mucomyst , bicarb otherwise post dc fu apt is in place for 09/08 in our office dw pt and daughter thank you , will follow Consultation Date/Type/Reason Admit Date/Time Sep 02, 2017 at 23:08 Date of Consultation: Sep 03, 2017 Reason for Consultation CKD fu Hx of Present Illness seen in cardiac tele admitted w cp renal called for fu of ckd 3-4 , base cr 2.5-1.8 out pt , followed at our office daughter at bedside denies any symptoms , no sob , no cp now cards eval noted lhc 6 m ago at [facility] Constitutional: no complaints Eyes: no complaints Respiratory: no complaints Cardiovascular: chest pain, no complaints Gastrointestinal: no complaints Genitourinary: no complaints Musculoskeletal: back pain Skin: no complaints Neurologic: no complaints Endocrine: no complaints Past Medical History Medical History: coronary artery disease, high cholesterol, hypertension Past Surgical History Past Surgical Hx: angioplasty Social History Smoking Status: Never smoker Exam/Review of Systems Vital Signs Vitals Vital Signs Date Time Temp Pulse Resp B/P Pulse Ox O2 Delivery O2 Flow Rate FiO2 09/03/17 15:36 97.5 53 18 124/71 96 09/03/17 02:15 Room Air Intake and Output 09/02/17 09/02/17 09/03/17 15:00 23:00 07:00 Intake Total 500 ml Output Total 800 ml Balance -300 ml Exam Constitutional: alert, oriented Psych: no complaints Head: atraumatic, normocephalic Eyes: EOMI, nl conjunctiva ENMT: nl external ears & nose Neck: supple Respiratory: clear to auscultation Cardiovascular: nl pulses, regular rate and rhythm Gastrointestinal: non-tender, soft Musculoskeletal: nl extremities to inspection Neurological: DENTAL BILLING SPECIALIST II-XII intact Skin: nl turgor Results Result Diagram: 09/03/17 0539 09/03/17 0539 Results 24 hrs Laboratory Tests Test 09/02/17 22:00 09/03/17 05:37 09/03/17 05:39 09/03/17 11:00 White Blood Count 5.5 6.2 Red Blood Count 4.58 L 4.61 L Hemoglobin 13.2 L 12.9 L Hematocrit 41.1 L 42.1 Mean Corpuscular Volume 89.7 91.3 Mean Corpuscular Hemoglobin 28.8 L 28.0 L Mean Corpuscular Hemoglobin Concent 32.1 30.6 L Red Cell Distribution Width 14.8 H 15.0 H Platelet Count 194 194 Mean Platelet Volume 9.8 10.0 Neutrophils % 70.1 59.3 Lymphocytes % 16.6 24.7 Monocytes % 8.9 10.1 Eosinophils % 3.1 4.0 Basophils % 0.4 0.8 Nucleated Red Blood Cells % 0.0 0.0 Neutrophils # 3.9 3.7 Lymphocytes # 0.9 1.5 Monocytes # 0.5 0.6 Eosinophils # 0.2 0.3 Basophils # 0.0 0.1 Nucleated Red Blood Cells # 0.0 0.0 Prothrombin Time 12.5 Prothrombin Time Ratio 1.0 INR International Normalized Ratio 0.93 Activated Partial Thromboplast Time 30.3 Sodium Level 139 144 Potassium Level 4.5 5.0 Chloride Level 109 110 Carbon Dioxide Level 21 24 Anion Gap 14 15 Blood Urea Nitrogen 44 H 42 H Creatinine 2.91 H 2.85 H Glucose Level 119 94 Calcium Level 8.4 8.6 Total Bilirubin 0.3 0.4 Direct Bilirubin 0.00 0.00 Indirect Bilirubin 0.3 0.4 Aspartate Amino Transf (AST/SGOT) 23 18 Alanine Aminotransferase (ALT/SGPT) 29 27 Alkaline Phosphatase 84 86 Troponin I < 0.012 0.014 < 0.012 Total Protein 7.2 6.8 Albumin 3.7 3.5 Globulin 3.50 H 3.30 H Albumin/Globulin Ratio 1.05 1.06 Hemoglobin A1c 5.5 Vitamin D 1,25-Dihydroxy 27.1 L Phosphorus Level 3.8 Magnesium Level 2.2 Thyroid Stimulating Hormone (TSH) 1.560 Medications Medications Current Medications Heparin Sodium (Porcine) (Heparin (5000 Units/0.5 ml)) 5,000 unit BID SC Last administered on 09/03/17t 09:06; Admin Dose 5,000 UNIT; Start 09/03/17 at 09: 00 Nitroglycerin (Nitroglycerin (Sl Tab) 0.4 Mg) 1 tab Q5M PRN SL ANGINA; Start 09/03/17 at 02:00 Morphine Sulfate (morphine) 2 mg Q4H PRN IV MODERATE PAIN LEVEL 4-6; Start at 02:00 Ondansetron HCl (Zofran Inj) 4 mg Q6H PRN IV NAUSEA AND/OR VOMITING; Start at 02:00 Allopurinol (Zyloprim) 300 mg DAILY PO Last administered on 09/03/17 09:06; Admin Dose 300 MG; Start 09/03/17 at 09:00 Amlodipine Besylate (Norvasc) 2.5 mg DAILY PO Last administered on 09/03/17 09:07; Admin Dose 2.5 MG; Start 09/03/17 at 09:00 Aspirin (Aspirin) 81 mg DAILY PO Last administered on 09/03/17 09:06; Admin Dose 81 MG; Start 09/03/17 at 09:00 Atorvastatin Calcium (Lipitor) 40 mg HS PO ; Start 09/03/17 at 21:00 Carvedilol (Coreg) 3.125 mg BID PO Last administered on 09/03/17 09:04; Admin Dose 3.125 MG; Start 09/03/17 at 09:00 Isosorbide Mononitrate (Imdur) 30 mg DAILY PO Last administered on 09/03/17 09:04; Admin Dose 30 MG; Start 09/03/17 at 09:00 Ranolazine (Ranexa) 500 mg Q12 PO Last administered on 09/03/17 09:04; Admin Dose 500 MG; Start 09/03/17 at 09:00 Ticagrelor (Brilinta) 90 mg BID PO Last administered on 09/03/17 09:05; Admin Dose 90 MG; Start 09/03/17 at 09:00 GIOVANNY BULLOCK Sep 03, 2017 16:20
[2017-09-03] MEDS: SOD CHLORIDE 0.9% 1,000 ML IV SCH (18:26)
[2017-09-03] MEDS: ATORVASTATIN 40 MG TAB PO SCH (20:12)
[2017-09-04] VITALS (11 sets, daily range): BP systolic 122–147; BP diastolic 63–74; PULSE 48–57; RESP 16–18
[2017-09-04] MEDS: SOD CHLORIDE 0.9% 1,000 ML IV SCH ×2 (05:50→19:57)
[2017-09-04 06:40] LABS: BASOPHIL # 0.1 10^3/ul (0.0-0.1); BASOPHILS % 0.7 % (0.0-2.0); EOSINOPHILS # 0.3 10^3/ul (0.0-0.5); EOSINOPHILS % 4.3 % (0.0-7.0); HEMATOCRIT 43.5 % (42.0-52.0); HEMOGLOBIN 13.5 g/dl (14.0-18.0); LYMPHOCYTES # 1.5 10^3/ul (0.8-2.9); LYMPHOCYTES % 22.1 % (15.0-51.0); MEAN CORPUSCULAR HEMOGLOBIN 28.5 pg (29.0-33.0); MEAN CORPUSCULAR VOLUME 91.8 fl (82.0-101.0); MEAN PLATELET VOLUME 9.7 fl (7.4-10.4); MONOCYTE # 0.6 10^3/ul (0.3-0.9); MONOCYTES % 8.7 % (0.0-11.0); NEUTROPHIL # 4.4 10^3/ul (1.6-7.5); NEUTROPHILS % 63.5 % (39.0-77.0); PLATELET COUNT 217 10^3/UL (140-415); RED BLOOD COUNT 4.74 10^6/ul (4.70-6.10); RED CELL DISTRIBUTION WIDTH 14.6 % (11.5-14.5)
[2017-09-04 07:07] LABS: ALBUMIN 3.6 g/dl (3.3-4.9); CALCIUM 8.6 mg/dl (8.4-10.2); CREATININE 2.81 mg/dl (0.61-1.24); POTASSIUM 4.8 mmol/L (3.5-5.1)
[2017-09-04 08:02] LABS: PHOSPHORUS 3.8 mg/dl (2.5-4.9)
[2017-09-04 08:50] LABS: CALCIUM 8.6 mg/dl (8.4-10.2); CREATININE 2.79 mg/dl (0.61-1.24); POTASSIUM 5.1 mmol/L (3.5-5.1)
[2017-09-04] MEDS: ASPIRIN 81 MG TAB PO SCH (08:52)
[2017-09-04] MEDS: RANOLAZINE (SR) 500 MG TAB PO SCH ×2 (08:52→20:17)
[2017-09-04] MEDS: ALLOPURINOL 100 MG TAB PO SCH (08:52)
[2017-09-04] MEDS: AMLODIPINE 2.5 MG TAB PO SCH (08:53)
[2017-09-04] MEDS: ISOSORBIDE MONONITRATE(SR)30 MG TAB PO SCH (08:55)
[2017-09-04] MEDS: TICAGRELOR 90 MG TABLET PO SCH ×2 (09:00→20:20)
[2017-09-04] MEDS: HEPARIN 5,000 UNIT/0.5 ML VIAL SC SCH ×2 (09:00→20:20)
--- NOTE | 2017-09-04 09:29 | PN ---
Date/Time of Note Date/Time of Note DATE: 09/04/17 TIME: 09:27 Assessment/Plan VTE Prophylaxis VTE Prophylaxis Intervention: ambulation, heparin Lines/Catheters IV Catheter Type (from [facility]): Peripheral IV Urinary Cath still in place: No Assessment/Plan Chief Complaint/Hosp Course 67-year-old male with a past medical history of multiple stents placed in the past with the most recent cath done 6 mos ago at [facility] and per patient, there was a 40% blockage. 1. Chest pain, rule out ACS. Serial EKG and serial troponin unremarkable. -Continue telemetry monitoring -Supplemental oxygen, aspirin, PRN nitro and morphine -Follow-up with cardiology recommendation regarding further inpatient cardiac workup if indicated. 2. Coronary artery disease with multiple PCI with multiple stents. -on ASA/Brilinta/beta-trinity/statin 3. CKD.Baseline creatinine 2.5-2.9. Renal function appears to be baseline. -Avoid nephrotoxins, monitor renal function closely. -Nephrology evaluation appreciated and we will follow-up with recommendations. 4. Hypertension: Stable. -Continue antihypertensives with adjustment as needed 5. Gout -on allopurinol 6. BPH -Continue home meds HSQ prophylaxis. Plan: Follow-up with cardiology recommendations regarding further inpatient cardiac workup if indicated. We will also follow-up with nephrology recommendations prior to any cardiac intervention if indicated. Patient was seen in collaboration with . Problems: Subjective 24 Hr Interval Summary Free Text/Dictation Patient denies chest pain or other constitutional symptoms. Exam/Review of Systems Vital Signs Vitals Vital Signs Date Time Temp Pulse Resp B/P Pulse Ox O2 Delivery O2 Flow Rate FiO2 09/04/17 08:19 48 09/04/17 07:37 98.0 16 122/63 97 09/03/17 02:15 Room Air Intake and Output 09/03/17 09/03/17 09/04/17 15:00 23:00 07:00 Intake Total 975 ml 1650 ml Output Total 700 ml 1500 ml Balance 275 ml 150 ml Exam General: Well developed,adequately built, not in any acute distress . HEENT: Normocephalic, Atraumatic, No laceration or hematoma; Eyes: PEERL, Conjunctiva clear, Anicteric sclera Neck: Supple without any lymphadenopathy, nontender, no JVD, no carotid bruits, trachea midline, no thyromegaly Cardiac: S1, S2 auscultated, regular rhythm and rate, no mumurs or gallop Pulmonary: Normal respiratory effort. Chest clear to auscultation bilaterally, no adventitious breath sounds GI: Abdomen normal to inspection. Soft, non tender, non- distended, no masses, no rebound tenderness or guarding. Bowel sounds active on all four quadrants Genitourinary: Deferred Extremities: No cyanosis, clubbing, or edema. Pulses [2+] bilaterally. Full ROM on all four extremities. No focal weakness appreciated. Neurologic: Alert to person, place, time, and situation. Affect appropriate, intact sensation. Skin: Clean,dry, and intact. No ecchymosis, no rashes, or lesions Results Result Diagram: 09/04/1747 09/04/17 0547 Results 24 hrs Laboratory Tests Test 09/03/17 11:00 09/04/17 05:00 09/04/17 05:47 Troponin I < 0.012 Thyroid Stimulating Hormone (TSH) 1.560 Sodium Level 142 143 Potassium Level 5.1 4.8 Chloride Level 110 111 H Carbon Dioxide Level 24 24 Anion Gap 13 13 Blood Urea Nitrogen 38 H 39 H Creatinine 2.79 H 2.81 H Glucose Level 77 83 Calcium Level 8.6 8.6 White Blood Count 7.0 Red Blood Count 4.74 Hemoglobin 13.5 L Hematocrit 43.5 Mean Corpuscular Volume 91.8 Mean Corpuscular Hemoglobin 28.5 L Mean Corpuscular Hemoglobin Concent 31.0 L Red Cell Distribution Width 14.6 H Platelet Count 217 Mean Platelet Volume 9.7 Neutrophils % 63.5 Lymphocytes % 22.1 Monocytes % 8.7 Eosinophils % 4.3 Basophils % 0.7 Nucleated Red Blood Cells % 0.0 Neutrophils # 4.4 Lymphocytes # 1.5 Monocytes # 0.6 Eosinophils # 0.3 Basophils # 0.1 Nucleated Red Blood Cells # 0.0 Phosphorus Level 3.8 Albumin 3.6 Medications Medications Current Medications Heparin Sodium (Porcine) (Heparin (5000 Units/0.5 ml)) 5,000 unit BID SC Last administered on 09/04/17t 09:00; Admin Dose 5,000 UNIT; Start 09/03/17 at 09: 00 Nitroglycerin (Nitroglycerin (Sl Tab) 0.4 Mg) 1 tab Q5M PRN SL ANGINA; Start 09/03/17 at 02:00 Morphine Sulfate (morphine) 2 mg Q4H PRN IV MODERATE PAIN LEVEL 4-6; Start at 02:00 Ondansetron HCl (Zofran Inj) 4 mg Q6H PRN IV NAUSEA AND/OR VOMITING; Start at 02:00 Amlodipine Besylate (Norvasc) 2.5 mg DAILY PO Last administered on 09/04/17 08:53; Admin Dose 2.5 MG; Start 09/03/17 at 09:00 Aspirin (Aspirin) 81 mg DAILY PO Last administered on 09/04/17 08:52; Admin Dose 81 MG; Start 09/03/17 at 09:00 Atorvastatin Calcium (Lipitor) 40 mg HS PO Last administered on 09/03/17 20: 12; Admin Dose 40 MG; Start 09/03/17 at 21:00 Carvedilol (Coreg) 3.125 mg BID PO Last administered on 09/04/17 08:55; Admin Dose 3.125 MG; Start 09/03/17 at 09:00 Isosorbide Mononitrate (Imdur) 30 mg DAILY PO Last administered on 09/04/17 08:55; Admin Dose 30 MG; Start 09/03/17 at 09:00 Ranolazine (Ranexa) 500 mg Q12 PO Last administered on 09/04/17 08:52; Admin Dose 500 MG; Start 09/03/17 at 09:00 Ticagrelor 90 mg 90 mg BID PO Last administered on 09/04/17 09:00; Admin Dose 90 MG; Start 09/03/17 at 09:00 Sodium Chloride (NS) 1,000 ml @ 75 mls/hr [id number] IV Last administered on 18:26; Admin Dose 75 MLS/HR; Start 09/03/17 at 16:30 Allopurinol (Zyloprim) 100 mg DAILY PO Last administered on 09/04/17 08:52; Admin Dose 100 MG; Start 09/04/17 at 09:00 ADIEL SOLO NP Sep 04, 2017 09:29
--- NOTE | 2017-09-04 15:29 | CONS ---
Date/Time of Note Date/Time of Note DATE: 09/04/17 TIME: 15:23 Consult Date/Type/Reason Admit Date/Time Sep 02, 2017 at 23:08 Initial Consult Date 09/03/17 Subjective walking no sob Objective Vital Signs Date Time Temp Pulse Resp B/P Pulse Ox O2 Delivery O2 Flow Rate FiO2 09/04/17 12:24 53 09/04/17 11:15 97.8 16 147/73 97 09/03/17 02:15 Room Air Intake and Output 09/03/17 09/03/17 09/04/17 15:00 23:00 07:00 Intake Total 975 ml 1650 ml Output Total 700 ml 1500 ml Balance 275 ml 150 ml Results/Medications Result Diagram: 09/04/17 0547 09/04/17 0547 Results 24 hrs Laboratory Tests Test 09/04/17 05:00 09/04/17 05:47 Sodium Level 142 143 Potassium Level 5.1 4.8 Chloride Level 110 111 H Carbon Dioxide Level 24 24 Anion Gap 13 13 Blood Urea Nitrogen 38 H 39 H Creatinine 2.79 H 2.81 H Glucose Level 77 83 Calcium Level 8.6 8.6 White Blood Count 7.0 Red Blood Count 4.74 Hemoglobin 13.5 L Hematocrit 43.5 Mean Corpuscular Volume 91.8 Mean Corpuscular Hemoglobin 28.5 L Mean Corpuscular Hemoglobin Concent 31.0 L Red Cell Distribution Width 14.6 H Platelet Count 217 Mean Platelet Volume 9.7 Neutrophils % 63.5 Lymphocytes % 22.1 Monocytes % 8.7 Eosinophils % 4.3 Basophils % 0.7 Nucleated Red Blood Cells % 0.0 Neutrophils # 4.4 Lymphocytes # 1.5 Monocytes # 0.6 Eosinophils # 0.3 Basophils # 0.1 Nucleated Red Blood Cells # 0.0 Phosphorus Level 3.8 Albumin 3.6 Medications Current Medications Heparin Sodium (Porcine) (Heparin (5000 Units/0.5 ml)) 5,000 unit BID SC Last administered on 09/04/17t 09:00; Admin Dose 5,000 UNIT; Start 09/03/17 at 09: 00 Nitroglycerin (Nitroglycerin (Sl Tab) 0.4 Mg) 1 tab Q5M PRN SL ANGINA; Start 09/03/17 at 02:00 Morphine Sulfate (morphine) 2 mg Q4H PRN IV MODERATE PAIN LEVEL 4-6; Start at 02:00 Ondansetron HCl (Zofran Inj) 4 mg Q6H PRN IV NAUSEA AND/OR VOMITING; Start at 02:00 Amlodipine Besylate (Norvasc) 2.5 mg DAILY PO Last administered on 09/04/17 08:53; Admin Dose 2.5 MG; Start 09/03/17 at 09:00 Aspirin (Aspirin) 81 mg DAILY PO Last administered on 09/04/17 08:52; Admin Dose 81 MG; Start 09/03/17 at 09:00 Atorvastatin Calcium (Lipitor) 40 mg HS PO Last administered on 09/03/17 20: 12; Admin Dose 40 MG; Start 09/03/17 at 21:00 Carvedilol (Coreg) 3.125 mg BID PO Last administered on 09/04/17 08:55; Admin Dose 3.125 MG; Start 09/03/17 at 09:00 Isosorbide Mononitrate (Imdur) 30 mg DAILY PO Last administered on 09/04/17 08:55; Admin Dose 30 MG; Start 09/03/17 at 09:00 Ranolazine (Ranexa) 500 mg Q12 PO Last administered on 09/04/17 08:52; Admin Dose 500 MG; Start 09/03/17 at 09:00 Ticagrelor 90 mg 90 mg BID PO Last administered on 09/04/17 09:00; Admin Dose 90 MG; Start 09/03/17 at 09:00 Sodium Chloride (NS) 1,000 ml @ 75 mls/hr [id number] IV Last administered on 18:26; Admin Dose 75 MLS/HR; Start 09/03/17 at 16:30 Allopurinol (Zyloprim) 100 mg DAILY PO Last administered on 09/04/17 08:52; Admin Dose 100 MG; Start 09/04/17 at 09:00 Assessment/Plan Chief Complaint/Hosp Course seen in cardiac tele admitted w cp renal called for fu of ckd 3-4 , base cr 2.5-1.8 out pt , followed at our office cr 2.8 bpost recent angio about 3 m ag[facility] denies any symptoms , no sob , no cp now cards eval noted , fu their plans , attempted to contact today keep same ivf for now labs in am Problems: GIOVANNY BULLOCK Sep 04, 2017 15:29
[2017-09-04] MEDS: ATORVASTATIN 40 MG TAB PO SCH (20:17)
[2017-09-04] MEDS: TAMSULOSIN (SR) 0.4 MG CAP PO SCH (21:27)
[2017-09-05] VITALS (12 sets, daily range): BP systolic 116–158; BP diastolic 61–83; PULSE 52–64; RESP 18–20
[2017-09-05 08:25] LABS: ALBUMIN 3.3 g/dl (3.3-4.9); CALCIUM 8.8 mg/dl (8.4-10.2); CREATININE 2.7 mg/dl (0.61-1.24); PHOSPHORUS 3.8 mg/dl (2.5-4.9); POTASSIUM 4.4 mmol/L (3.5-5.1)
[2017-09-05] MEDS: RANOLAZINE (SR) 500 MG TAB PO SCH ×2 (08:28→21:21)
[2017-09-05] MEDS: ALLOPURINOL 100 MG TAB PO SCH (08:28)
[2017-09-05] MEDS: AMLODIPINE 2.5 MG TAB PO SCH (08:28)
[2017-09-05] MEDS: ASPIRIN 81 MG TAB PO SCH (08:29)
[2017-09-05] MEDS: ISOSORBIDE MONONITRATE(SR)30 MG TAB PO SCH (08:29)
[2017-09-05] MEDS: SOD CHLORIDE 0.9% 1,000 ML IV SCH (08:31)
[2017-09-05] MEDS: TICAGRELOR 90 MG TABLET PO SCH ×2 (08:38→21:33)
[2017-09-05] MEDS: HEPARIN 5,000 UNIT/0.5 ML VIAL SC SCH ×2 (08:39→21:34)
[2017-09-05 09:08] LABS: CALCIUM 8.6 mg/dl (8.4-10.2); CREATININE 2.67 mg/dl (0.61-1.24); POTASSIUM 4.4 mmol/L (3.5-5.1)
--- NOTE | 2017-09-05 09:38 | PN ---
Date/Time of Note Date/Time of Note DATE: 09/05/17 TIME: 09:32 Assessment/Plan VTE Prophylaxis VTE Prophylaxis Intervention: heparin Lines/Catheters IV Catheter Type (from [facility]): Peripheral IV Urinary Cath still in place: No Assessment/Plan Chief Complaint/Hosp Course 67-year-old male with a past medical history of multiple stents placed in the past with the most recent cath done 6 mos ago at [facility] and per patient, there was a 40% blockage. 1. Chest pain,Less likely ACS-most probably his symptoms are secondary to costochondritis with underlying vitamin D deficiency. Serial EKG and serial troponin unremarkable. -Continue telemetry monitoring -PRN pain meds. -Follow-up with cardiology recommendation regarding further inpatient cardiac workup if indicated. 2. Coronary artery disease with multiple PCI with multiple stents. -on ASA/Brilinta/beta-trinity/statin 3. CKD, Stage IV.Baseline creatinine 2.5-2.9. Renal function appears to be baseline. -Avoid nephrotoxins, monitor renal function closely. -Nephrology evaluation appreciated and we will follow-up with recommendations. 4. Hypertension: Stable. -Continue antihypertensives with adjustment as needed 5. Gout -on allopurinol 6. BPH -Continue home meds 7. Vitamin D deficiency. -Start replacement. HSQ prophylaxis. Plan: Follow-up with cardiology recommendations regarding further inpatient cardiac workup if indicated. We will also follow-up with nephrology recommendations prior to any cardiac intervention if indicated. Patient was seen in collaboration with DR. Arriaga Problems: Subjective 24 Hr Interval Summary Free Text/Dictation Patient remains comfortable. He did not have any further chest pain or palpitation or any other constitutional symptoms. Exam/Review of Systems Vital Signs Vitals Vital Signs Date Time Temp Pulse Resp B/P Pulse Ox O2 Delivery O2 Flow Rate FiO2 09/05/17 09:04 52 09/05/17 07:38 98.5 18 122/68 100 09/03/17 02:15 Room Air Intake and Output 09/04/17 09/04/17 09/05/17 15:00 23:00 07:00 Intake Total 2300 ml 1200 ml Output Total 2000 ml 1700 ml Balance 300 ml -500 ml Exam General: Well developed,adequately built, not in any acute distress . HEENT: Normocephalic, Atraumatic, No laceration or hematoma; Eyes: PEERL, Conjunctiva clear, Anicteric sclera Neck: Supple without any lymphadenopathy, nontender, no JVD, no carotid bruits, trachea midline, no thyromegaly Cardiac: S1, S2 auscultated, regular rhythm and rate, no mumurs or gallop Pulmonary: Normal respiratory effort. Chest clear to auscultation bilaterally, no adventitious breath sounds GI: Abdomen normal to inspection. Soft, non tender, non- distended, no masses, no rebound tenderness or guarding. Bowel sounds active on all four quadrants Genitourinary: Deferred Extremities: No cyanosis, clubbing, or edema. Pulses [2+] bilaterally. Full ROM on all four extremities. No focal weakness appreciated. Neurologic: Alert to person, place, time, and situation. Affect appropriate, intact sensation. Skin: Clean,dry, and intact. No ecchymosis, no rashes, or lesions Results Result Diagram: 09/04/17 0547 09/05/17 0643 Results 24 hrs Laboratory Tests Test 09/05/17 06:43 Sodium Level 143 Potassium Level 4.4 Chloride Level 110 Carbon Dioxide Level 26 Anion Gap 11 Blood Urea Nitrogen 37 H Creatinine 2.70 H Glucose Level 85 Calcium Level 8.8 Phosphorus Level 3.8 Albumin 3.3 Medications Medications Current Medications Heparin Sodium (Porcine) (Heparin (5000 Units/0.5 ml)) 5,000 unit BID SC Last administered on 09/05/17 08:39; Admin Dose 5,000 UNIT; Start 09/03/17 at 09: 00 Nitroglycerin (Nitroglycerin (Sl Tab) 0.4 Mg) 1 tab Q5M PRN SL ANGINA; Start 09/03/17 at 02:00 Morphine Sulfate (morphine) 2 mg Q4H PRN IV MODERATE PAIN LEVEL 4-6; Start at 02:00 Ondansetron HCl (Zofran Inj) 4 mg Q6H PRN IV NAUSEA AND/OR VOMITING; Start at 02:00 Amlodipine Besylate (Norvasc) 2.5 mg DAILY PO Last administered on 09/05/17 08:28; Admin Dose 2.5 MG; Start 09/03/17 at 09:00 Aspirin (Aspirin) 81 mg DAILY PO Last administered on 09/05/17 08:29; Admin Dose 81 MG; Start 09/03/17 at 09:00 Atorvastatin Calcium (Lipitor) 40 mg HS PO Last administered on 09/04/17 20: 17; Admin Dose 40 MG; Start 09/03/17 at 21:00 Carvedilol (Coreg) 3.125 mg BID PO Last administered on 09/05/17 08:30; Admin Dose 3.125 MG; Start 09/03/17 at 09:00 Isosorbide Mononitrate (Imdur) 30 mg DAILY PO Last administered on 09/05/17 08:29; Admin Dose 30 MG; Start 09/03/17 at 09:00 Ranolazine (Ranexa) 500 mg Q12 PO Last administered on 09/05/17 08:28; Admin Dose 500 MG; Start 09/03/17 at 09:00 Ticagrelor 90 mg 90 mg BID PO Last administered on 09/05/17 08:38; Admin Dose 90 MG; Start 09/03/17 at 09:00 Sodium Chloride (NS) 1,000 ml @ 75 mls/hr [id number] IV Last administered on 08:31; Admin Dose 75 MLS/HR; Start 09/03/17 at 16:30 Allopurinol (Zyloprim) 100 mg DAILY PO Last administered on 09/05/17 08:28; Admin Dose 100 MG; Start 09/04/17 at 09:00 Tamsulosin HCl (Flomax) 0.4 mg HS PO Last administered on 09/04/17 21:27; Admin Dose 0.4 MG; Start 09/04/17 at 21:00 ADIEL SOLO NP Sep 05, 2017 09:38
[2017-09-05] MEDS: CHOLECALCIFEROL 2,000 UNIT CAP PO SCH (10:59)
--- NOTE | 2017-09-05 11:21 | PN ---
Date/Time of Note Date/Time of Note DATE: 09/05/17 TIME: 11:11 Assessment/Plan VTE Prophylaxis VTE Prophylaxis Intervention: ambulation Lines/Catheters IV [facility] Type (from [facility]): Peripheral IV Urinary Cath still in place: No Assessment/Plan Assessment/Plan 1. CKD Stage IV: Recent baseline around 2.5 mg/dL with an eGFR of approximately 25% by MDRD. This is against the backdrop of long standing hypertension and cardiovascular disease. Creatinine here stable and close to his recent baselines. Will check UA to assess for proteinuria and renal ultrasound to evaluate for outflow issues given his history of BPH. No nephrotoxins noted. Please avoid nephrotoxic agents and dose all meds for his GFR. We will continue to follow his renal function closely. Continue risk factor modification, as you are. 2. Chest pain: History fo CAD with 8 stents. Cardiology on board and working up. He has had an angiogram within the past 6 months at [facility]. Reportedly for consideration of cardiac catheterization. In the event that he undergoes a cardiac cath, per the Wilfredo model his risk of contrast induced nephropathy is approximately 7.5% and risk of dialysis is 0.04% . This has been discussed with the patient. Recommend pre- and post-hydration with normal saline. OK to continue IVF for now. 3. HTN: BPs at goal. Continue present management. 4. History of gout: On allopurinol. Will check a uric acid. No recent flares. 5. BPH: On tamsulosin. Renal US as per #1. 6. Vitamin D deficiency: On supplementation. Will check a vitamin D level and PTH. 7. Anemia: Mild. Will check iron studies. No need for CARLOS at present. 8. 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 Thank you for allowing me to participate in this patient's care. Nephrology will continue to follow along closely with you. Please feel free to contact us with questions or concerns [phone] d/w patient and RN. Subjective 24 Hr Interval Summary Free Text/Dictation Patient being seen for JONO on CKD IV. No overnight events. VSS. No new complaints. labs/meds/imaging reviewed. Exam/Review of Systems Vital Signs Vitals Vital Signs Date Time Temp Pulse Resp B/P Pulse Ox O2 Delivery O2 Flow Rate FiO2 10/16/17 09:04 52 09/05/17 07:38 98.5 18 122/68 100 09/03/17 02:15 Room Air Intake and Output 09/04/17 09/04/17 09/05/17 15:00 23:00 07:00 Intake Total 2300 ml 1200 ml Output Total 2000 ml 1700 ml Balance 300 ml -500 ml Exam Constitutional: alert, oriented Psych: no complaints Head: normocephalic Eyes: nl conjunctiva ENMT: nl external ears & nose Neck: supple Respiratory: clear to auscultation Cardiovascular: regular rate and rhythm Gastrointestinal: nl liver, spleen, soft Musculoskeletal: nl extremities to inspection Extremities: normal pulses 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, nl mental status, nl speech, nl strength Skin: nl turgor, No rash or lesions Lymph: nl lymph nodes Results Result Diagram: 09/04/17 0547 09/05/17 0643 Results 24 hrs Laboratory Tests Test 09/05/17 06:43 Sodium Level 143 Potassium Level 4.4 Chloride Level 110 Carbon Dioxide Level 26 Anion Gap 11 Blood Urea Nitrogen 37 H Creatinine 2.70 H Glucose Level 85 Calcium Level 8.8 Phosphorus Level 3.8 Albumin 3.3 Medications Medications Current Medications Heparin Sodium (Porcine) (Heparin (5000 Units/0.5 ml)) 5,000 unit BID SC Last administered on 09/05/17 08:39; Admin Dose 5,000 UNIT; Start 09/03/17 at 09: 00 Nitroglycerin (Nitroglycerin (Sl Tab) 0.4 Mg) 1 tab Q5M PRN SL ANGINA; Start 09/03/17 at 02:00 Morphine Sulfate (morphine) 2 mg Q4H PRN IV MODERATE PAIN LEVEL 4-6; Start at 02:00 Ondansetron HCl (Zofran Inj) 4 mg Q6H PRN IV NAUSEA AND/OR VOMITING; Start at 02:00 Amlodipine Besylate (Norvasc) 2.5 mg DAILY PO Last administered on 09/05/17 08:28; Admin Dose 2.5 MG; Start 09/03/17 at 09:00 Aspirin (Aspirin) 81 mg DAILY PO Last administered on 09/05/17 08:29; Admin Dose 81 MG; Start 09/03/17 at 09:00 Atorvastatin Calcium (Lipitor) 40 mg HS PO Last administered on 09/04/17 20: 17; Admin Dose 40 MG; Start 09/03/17 at 21:00 Carvedilol (Coreg) 3.125 mg BID PO Last administered on 09/05/17 08:30; Admin Dose 3.125 MG; Start 09/03/17 at 09:00 Isosorbide Mononitrate (Imdur) 30 mg DAILY PO Last administered on 09/05/17 08:29; Admin Dose 30 MG; Start 09/03/17 at 09:00 Ranolazine (Ranexa) 500 mg Q12 PO Last administered on 09/05/17 08:28; Admin Dose 500 MG; Start 09/03/17 at 09:00 Ticagrelor 90 mg 90 mg BID PO Last administered on 09/05/17 08:38; Admin Dose 90 MG; Start 09/03/17 at 09:00 Sodium Chloride (NS) 1,000 ml @ 75 mls/hr [id number] IV Last administered on 08:31; Admin Dose 75 MLS/HR; Start 09/03/17 at 16:30 Allopurinol (Zyloprim) 100 mg DAILY PO Last administered on 09/05/17 08:28; Admin Dose 100 MG; Start 09/04/17 at 09:00 Tamsulosin HCl (Flomax) 0.4 mg HS PO Last administered on 09/04/17 21:27; Admin Dose 0.4 MG; Start 09/04/17 at 21:00 Cholecalciferol (Vitamin D) 2,000 unit DAILY PO Last administered on 10:59; Admin Dose 2,000 UNIT; Start 09/05/17 at 10:00 NEHEMIAS PICKENS MD Sep 05, 2017 11:21
[2017-09-05 13:46] LABS: ADD UMIC YES; UR ASCORBIC ACID NEGATIVE (NEGATIVE); UR BILIRUBIN (Dip) NEGATIVE (NEGATIVE); UR BLOOD (Dip) 1+ mg/dL (NEGATIVE); UR CLARITY CLEAR (CLEAR); UR COLOR COLORLESS (YELLOW); UR GLUCOSE (Dip) NEGATIVE (NEGATIVE); UR KETONES (Dip) NEGATIVE (NEGATIVE); UR LEUKOCYTE ESTERASE (Dip) NEGATIVE Leu/ul (NEGATIVE); UR NITRITE (Dip) NEGATIVE (NEGATIVE); UR RBC 0 /HPF (0-5); UR SPECIFIC GRAVITY (Dip) 1.003 (1.003-1.030); UR TOTAL PROTEIN (Dip) 1+ mg/dl (NEGATIVE); UR UROBILINOGEN (Dip) NEGATIVE (NEGATIVE)
--- NOTE | 2017-09-05 16:37 | CONS ---
Date/Time of Note Date/Time of Note DATE: 09/05/17 TIME: 16:34 Consult Date/Type/Reason Admit Date/Time Sep 02, 2017 at 23:08 Initial Consult Date 09/03/17 Type of Consultation: card Subjective d/w staff and son pt with no chest pain or pressure or palpitations he wants to go home he reports that he has had a normal coni angio in may O: General: no acute distress HEENT: NC/AT. pupils are equal. round. NECK: NO JVD. no stridor. CV: RRR. systolic murmur; no gallop or rubs. PULM: no wheezing or rhonchi. GI: SOFT, NT, ND, no rebound or guarding Extremity: trace B/L LE edema. no clubbing. neuro: awake and alert, OX3. Psych: calm and pleasant rectal: deferred : normal Objective Vital Signs Date Time Temp Pulse Resp B/P Pulse Ox O2 Delivery O2 Flow Rate FiO2 09/05/17 16:12 98.4 56 20 157/83 95 09/03/17 02:15 Room Air Intake and Output 09/04/17 09/04/17 09/05/17 15:00 23:00 07:00 Intake Total 2300 ml 1200 ml Output Total 2000 ml 1700 ml Balance 300 ml -500 ml Results/Medications Result Diagram: 09/04/17 0547 09/05/17 0643 Results 24 hrs Laboratory Tests Test 09/05/17 06:43 09/05/17 13:03 Sodium Level 143 Potassium Level 4.4 Chloride Level 110 Carbon Dioxide Level 26 Anion Gap 11 Blood Urea Nitrogen 37 H Creatinine 2.70 H Glucose Level 85 Calcium Level 8.8 Phosphorus Level 3.8 Albumin 3.3 Urine Color COLORLESS Urine Clarity CLEAR Urine pH 7.0 Urine Specific [place] 1.003 Urine Ketones NEGATIVE Urine Nitrite NEGATIVE Urine Bilirubin NEGATIVE Urine Urobilinogen NEGATIVE Urine Leukocyte Esterase NEGATIVE Urine Microscopic RBC 0 Urine Microscopic WBC 0 Urine Hemoglobin 1+ H Urine Glucose NEGATIVE Urine Total Protein 1+ H Medications Current Medications Heparin Sodium (Porcine) (Heparin (5000 Units/0.5 ml)) 5,000 unit BID SC Last administered on 09/05/17t 08:39; Admin Dose 5,000 UNIT; Start 09/03/17 at 09: 00 Nitroglycerin (Nitroglycerin (Sl Tab) 0.4 Mg) 1 tab Q5M PRN SL ANGINA; Start 09/03/17 at 02:00 Morphine Sulfate (morphine) 2 mg Q4H PRN IV MODERATE PAIN LEVEL 4-6; Start at 02:00 Ondansetron HCl (Zofran Inj) 4 mg Q6H PRN IV NAUSEA AND/OR VOMITING; Start at 02:00 Amlodipine Besylate (Norvasc) 2.5 mg DAILY PO Last administered on 09/05/17 08:28; Admin Dose 2.5 MG; Start 09/03/17 at 09:00 Aspirin (Aspirin) 81 mg DAILY PO Last administered on 09/05/17 08:29; Admin Dose 81 MG; Start 09/03/17 at 09:00 Atorvastatin Calcium (Lipitor) 40 mg HS PO Last administered on 09/04/17 20: 17; Admin Dose 40 MG; Start 09/03/17 at 21:00 Carvedilol (Coreg) 3.125 mg BID PO Last administered on 09/05/17 08:30; Admin Dose 3.125 MG; Start 09/03/17 at 09:00 Isosorbide Mononitrate (Imdur) 30 mg DAILY PO Last administered on 09/05/17 08:29; Admin Dose 30 MG; Start 09/03/17 at 09:00 Ranolazine (Ranexa) 500 mg Q12 PO Last administered on 09/05/17 08:28; Admin Dose 500 MG; Start 09/03/17 at 09:00 Ticagrelor 90 mg 90 mg BID PO Last administered on 09/05/17 08:38; Admin Dose 90 MG; Start 09/03/17 at 09:00 Sodium Chloride (NS) 1,000 ml @ 75 mls/hr [id number] IV Last administered on 08:31; Admin Dose 75 MLS/HR; Start 09/03/17 at 16:30 Allopurinol (Zyloprim) 100 mg DAILY PO Last administered on 09/05/17 08:28; Admin Dose 100 MG; Start 09/04/17 at 09:00 Tamsulosin HCl (Flomax) 0.4 mg HS PO Last administered on 09/04/17 21:27; Admin Dose 0.4 MG; Start 09/04/17 at 21:00 Cholecalciferol (Vitamin D) 2,000 unit DAILY PO Last administered on t 10:59; Admin Dose 2,000 UNIT; Start 09/05/17 at 10:00 Assessment/Plan Chief Complaint/Hosp Course 1. CHEST/ Back pain: nonangina 2. CAD 3. HX multiple PCI 4. CKD 5. HTN 6. Dyslipidemia cont current meds including asa/ brilinta/ coreg/ statin ok for dc from cardiac stand point pt has an appointment to see me in office ANH CARRERA MD [facility] Problems: ANH CARRERA MD Sep 05, 2017 16:37
--- NOTE | 2017-09-05 18:16 | RADRPT ---
PROCEDURE: US renal. CLINICAL INDICATION: Acute kidney injury. History of renal mass. TECHNIQUE: Rowley scale and color Doppler imaging of the kidneys and bladder. COMPARISON: Renal ultrasound dated 07/18/2016. FINDINGS: Right kidney: 8.45 cm in length. Increased echogenicity. There are simple appearing cysts. There is a dominant 14 x 10 cm cystic lesion with avascular layering echogenic debris. There is questionable hydronephrosis. Left kidney: 11.64 cm in length. Increased echogenicity. Multiple cysts, the largest at the upper p ole measuring 2.4 cm. No solid renal mass. Bladder: Distended and unremarkable. IMPRESSION: 1. Complicated cystic right renal lesion with layering avascular echogenic debris measuring 14 x 10 cm. Given the patient's history of renal disease, MRI with diffusion weighted imaging may be warran huong for further evaluation. 2. Additional simple bilateral renal cysts. 3. Questionable mild right hydronephrosis, with evaluation being limited due to the large renal les ion. 4. Bilateral echogenic kidneys, consistent with medical renal disease.. RPTAT: HLBP .Mc Lucia MD, MD Date Time Electronically viewed and signed by .Mc Lucia MD, MD on 09/05/2017 18:16 .P/
[2017-09-05] MEDS: TAMSULOSIN (SR) 0.4 MG CAP PO SCH (21:21)
[2017-09-05] MEDS: ATORVASTATIN 40 MG TAB PO SCH (21:21)
[2017-09-05] MEDS: SENNA TAB PO SCH (22:46)
[2017-09-06] VITALS (10 sets, daily range): BP systolic 106–144; BP diastolic 62–76; PULSE 51–66; RESP 17–20
[2017-09-06 07:40] LABS: BASOPHILS % 0.7 % (0.0-2.0); EOSINOPHILS # 0.2 10^3/ul (0.0-0.5); EOSINOPHILS % 3.5 % (0.0-7.0); HEMATOCRIT 43.5 % (42.0-52.0); HEMOGLOBIN 13.4 g/dl (14.0-18.0); LYMPHOCYTES # 1.2 10^3/ul (0.8-2.9); LYMPHOCYTES % 20.7 % (15.0-51.0); MEAN CORPUSCULAR HGB CONC 30.8 g/dl (32.0-37.0); MEAN PLATELET VOLUME 9.6 fl (7.4-10.4); MONOCYTE # 0.6 10^3/ul (0.3-0.9); NEUTROPHIL # 3.8 10^3/ul (1.6-7.5); NEUTROPHILS % 64.3 % (39.0-77.0); PLATELET COUNT 195 10^3/UL (140-415); RED BLOOD COUNT 4.78 10^6/ul (4.70-6.10); RED CELL DISTRIBUTION WIDTH 15.3 % (11.5-14.5)
[2017-09-06 07:55] LABS: IRON 77 ug/dl (35-150)
[2017-09-06 08:06] LABS: TOTAL IRON BINDING CAPACITY 277 ug/dl (241-421)
[2017-09-06 08:09] LABS: CALCIUM 8.9 mg/dl (8.4-10.2); CREATININE 2.78 mg/dl (0.61-1.24); MAGNESIUM 1.9 mg/dl (1.7-2.5); PHOSPHORUS 4.6 mg/dl (2.5-4.9); POTASSIUM 4.6 mmol/L (3.5-5.1)
[2017-09-06] MEDS: RANOLAZINE (SR) 500 MG TAB PO SCH (08:45)
[2017-09-06] MEDS: ALLOPURINOL 100 MG TAB PO SCH (08:45)
[2017-09-06] MEDS: ASPIRIN 81 MG TAB PO SCH (08:45)
[2017-09-06] MEDS: CHOLECALCIFEROL 2,000 UNIT CAP PO SCH (08:46)
[2017-09-06] MEDS: ISOSORBIDE MONONITRATE(SR)30 MG TAB PO SCH (08:47)
[2017-09-06] MEDS: AMLODIPINE 2.5 MG TAB PO SCH (08:48)
[2017-09-06] MEDS: SENNA TAB PO SCH (08:48)
--- NOTE | 2017-09-06 08:48 | PN ---
Date/Time of Note Date/Time of Note DATE: 09/06/17 TIME: 08:39 Assessment/Plan VTE Prophylaxis VTE Prophylaxis Intervention: ambulation Lines/Catheters IV [facility]from [facility] [place] Urinary Cath still in place: No Assessment/Plan Assessment/Plan 1. CKD Stage IV: Recent baseline around 2.5 mg/dL with an eGFR of approximately 25% by MDRD. This is against the backdrop of long standing hypertension and cardiovascular disease. Creatinine here stable and close to his recent baselines. UA showed 1+ protein and renal ultrasound demonstrated known cysts, one of which is complex, without outflow issues. Renal function at baseline. Will continue to follow. Risk factor modification, as you are doing. 2. Chest pain: History fo CAD with multiple stents and cardiac cath at [facility] within past 6 months. Cardiology on board and following. Appreciate cardiology colleagues input. 3. HTN: BPs at goal. Continue present management. Some proteinuria, to be quantified. Will hold of on RAAS blockade given advanced CKD. 4. History of gout: On allopurinol. No recent flares. Uric acid level added on to AM labs. 5. BPH: On tamsulosin. Renal US as per #1. 6. Vitamin D deficiency: On supplementation. PTH pending, vitamin D close to normal. Will continue vitamin D. Can be uptitrated based on PTH. 7. Anemia: Mild. Iron studies normal. No need for CARLOS at present. 8. Renal cysts: Hx of echinococcus with both hepatic and renal cysts. Complex R cyst noted. Will need urology evaluation. Can be done as an outpatient. 9. FEN: Patient requesting dietary education. Have ordered a dietary consult. It was a pleasure to see Mr. Jamison today. Thank you for allowing me to participate in his care. Nephrology will continue to follow along with you. OK for discharge from a nephrology standpoint. He has a follow up with us on . Please feel free to contact me with questions or concerns. [phone]. d/w patient and RN. Subjective 24 Hr Interval Summary Free Text/Dictation Seen for CKDIV. No acute events. Vitals stable. No complaints. No further chest pain. Labs/meds/img/notes reviewed. Constitutional: no complaints Eyes: no complaints ENT: no complaints Respiratory: no complaints Cardiovascular: chest pain Gastrointestinal: no complaints Genitourinary: no complaints Musculoskeletal: no complaints Skin: no complaints Neurologic: no complaints Endocrine: no complaints Exam/Review of Systems Vital Signs Vitals Vital Signs Date Time Temp Pulse Resp B/P Pulse Ox O2 Delivery O2 Flow Rate FiO2 09/06/17 08:18 51 09/06/17 07:26 97.1 19 144/76 96 09/03/17 02:15 Room Air Intake and Output 09/05/17 09/05/17 09/06/17 14:59 22:59 06:59 Intake Total 2325 ml 360 ml Output Total 1300 ml 1600 ml Balance 1025 ml -1240 ml Exam Constitutional: alert, oriented, well developed Psych: nl mood/affect Head: atraumatic, normocephalic Eyes: nl conjunctiva ENMT: mucosa pink and moist Neck: non-tender, supple Respiratory: clear to auscultation Cardiovascular: regular rate and rhythm Gastrointestinal: non-tender, soft Musculoskeletal: nl extremities to inspection Extremities: other (no edema) Skin: nl turgor Results Result Diagram: 09/06/17 0707 09/06/17 0707 Results 24 hrs Laboratory Tests Test 09/05/17 13:03 09/06/17 07:07 Urine Color COLORLESS Urine Clarity CLEAR Urine pH 7.0 Urine Specific [place] 1.003 Urine Ketones NEGATIVE Urine Nitrite NEGATIVE Urine Bilirubin NEGATIVE Urine Urobilinogen NEGATIVE Urine Leukocyte Esterase NEGATIVE Urine Microscopic RBC 0 Urine Microscopic WBC 0 Urine Hemoglobin 1+ H Urine Glucose NEGATIVE Urine Total Protein 1+ H White Blood Count 6.0 Red Blood Count 4.78 Hemoglobin 13.4 L Hematocrit 43.5 Mean Corpuscular Volume 91.0 Mean Corpuscular Hemoglobin 28.0 L Mean Corpuscular Hemoglobin Concent 30.8 L Red Cell Distribution Width 15.3 H Platelet Count 195 Mean Platelet Volume 9.6 Neutrophils % 64.3 Lymphocytes % 20.7 Monocytes % 10.0 Eosinophils % 3.5 Basophils % 0.7 Nucleated Red Blood Cells % 0.0 Neutrophils # 3.8 Lymphocytes # 1.2 Monocytes # 0.6 Eosinophils # 0.2 Basophils # 0.0 Nucleated Red Blood Cells # 0.0 Sodium Level 143 Potassium Level 4.6 Chloride Level 108 Carbon Dioxide Level 24 Anion Gap 16 Blood Urea Nitrogen 35 H Creatinine 2.78 H Glucose Level 92 Calcium Level 8.9 Phosphorus Level 4.6 Magnesium Level 1.9 Iron Level 77 Total Iron Binding Capacity 277 Percent Iron Saturation 28 Medications Medications Current Medications Heparin Sodium (Porcine) (Heparin (5000 Units/0.5 ml)) 5,000 unit BID SC Last administered on 09/05/17 21:34; Admin Dose 5,000 UNIT; Start 09/03/17 at 09: 00 Nitroglycerin (Nitroglycerin (Sl Tab) 0.4 Mg) 1 tab Q5M PRN SL ANGINA; Start 09/03/17 at 02:00 Morphine Sulfate (morphine) 2 mg Q4H PRN IV MODERATE PAIN LEVEL 4-6; Start at 02:00 Ondansetron HCl (Zofran Inj) 4 mg Q6H PRN IV NAUSEA AND/OR VOMITING; Start at 02:00 Amlodipine Besylate (Norvasc) 2.5 mg DAILY PO Last administered on 09/05/17 08:28; Admin Dose 2.5 MG; Start 09/03/17 at 09:00 Aspirin (Aspirin) 81 mg DAILY PO Last administered on 09/05/17 08:29; Admin Dose 81 MG; Start 09/03/17 at 09:00 Atorvastatin Calcium (Lipitor) 40 mg HS PO Last administered on 09/05/17 21: 21; Admin Dose 40 MG; Start 09/03/17 at 21:00 Carvedilol (Coreg) 3.125 mg BID PO Last administered on 09/05/17 21:26; Admin Dose 3.125 MG; Start 09/03/17 at 09:00 Isosorbide Mononitrate (Imdur) 30 mg DAILY PO Last administered on 09/05/17 08:29; Admin Dose 30 MG; Start 09/03/17 at 09:00 Ranolazine (Ranexa) 500 mg Q12 PO Last administered on 09/05/17 21:21; Admin Dose 500 MG; Start 09/03/17 at 09:00 Ticagrelor (Brilinta) 90 mg BID PO Last administered on 09/05/17 21:33; Admin Dose 90 MG; Start 09/03/17 at 09:00 Allopurinol (Zyloprim) 100 mg DAILY PO Last administered on 09/05/17 08:28; Admin Dose 100 MG; Start 09/04/17 at 09:00 Tamsulosin HCl (Flomax) 0.4 mg HS PO Last administered on 09/05/17 21:21; Admin Dose 0.4 MG; Start 09/04/17 at 21:00 Cholecalciferol (Vitamin D) 2,000 unit DAILY PO Last administered on 10:59; Admin Dose 2,000 UNIT; Start 09/05/17 at 10:00 Senna (Senokot) 1 tab DAILY PO Last administered on 09/05/17 22:46; Admin Dose 1 TAB; Start 09/05/17 at 22:30 ROGERS MCDONALD Sep 06, 2017 08:48
[2017-09-06] MEDS: HEPARIN 5,000 UNIT/0.5 ML VIAL SC SCH (08:56)
[2017-09-06] MEDS: TICAGRELOR 90 MG TABLET PO SCH (08:57)
[2017-09-06] MEDS ORDERED: TAMS-14 PO (09:43)
--- NOTE | 2017-09-06 09:43 | PDOCDIS ---
Discharge Instructions CONDITION Patient Condition: Stable HOME CARE INSTRUCTIONS: Diet Instructions: Low Fat /Cholesterol FOLLOW UP/APPOINTMENTS Follow-up Plan 1. Follow-up with (patient already has appointment) [id number] [facility] [address] [place] [address] Office 2. Follow-up with (Vocational Rehabilitation Consultant)-patient already has appointment for 09/08/2017. [address] [facility] [address] [place] [address] Office 3.Follow up with primary care physician in 1 week If you don't have one please let someone know, we can give you resources that may help you pick one. You may also call your insurance company to assign one to you. Review your medication list with your nurse before leaving and if you need new prescriptions please let your nurse know. I may have made changes to your home medications or given you new prescriptions, please let your primary doctor know as well. Stay compliant with your medications and report any side effects to your PCP or pharmacist. Return to the ER if you have any concerns and cannot reach your doctors or call your insurance company, they usually have a nurse that can help you. 4. Call 911 or go to the nearest emergency room if experiencing loss of consciousness, dizziness, chest pain, shortness of breath, vomiting/abdominal pain, speech difficulties, motor weakness or any unusual symptoms. ADIEL SOLO NP Sep 06, 2017 09:42
--- NOTE | 2017-09-06 13:04 | CONS ---
Date/Time of Note Date/Time of Note DATE: 09/06/17 TIME: 13:04 Consult Date/Type/Reason Admit Date/Time Sep 02, 2017 at 23:08 Initial Consult Date 09/03/17 Type of Consultation: card Subjective d/w staff and son pt with no chest pain or pressure or palpitations now he wants to go home he reports that he has had a normal coni angio in may O: General: no acute distress HEENT: NC/AT. pupils are equal. round. NECK: NO JVD. no stridor. CV: RRR. systolic murmur; no gallop or rubs. PULM: no wheezing or rhonchi. GI: SOFT, NT, ND, no rebound or guarding Extremity: trace B/L LE edema. no clubbing. neuro: awake and alert, OX3. Psych: calm and pleasant rectal: deferred : normal Objective Vital Signs Date Time Temp Pulse Resp B/P Pulse Ox O2 Delivery O2 Flow Rate FiO2 09/06/17 12:35 62 09/06/17 11:21 97.8 17 106/62 96 09/03/17 02:15 Room Air Intake and Output 09/05/17 09/05/17 09/06/17 15:00 23:00 07:00 Intake Total 2325 ml 360 ml Output Total 1300 ml 1600 ml Balance 1025 ml -1240 ml Results/Medications Result Diagram: 09/06/17 0707 09/06/17 0707 Results 24 hrs Laboratory Tests Test 09/06/17 07:07 White Blood Count 6.0 Red Blood Count 4.78 Hemoglobin 13.4 L Hematocrit 43.5 Mean Corpuscular Volume 91.0 Mean Corpuscular Hemoglobin 28.0 L Mean Corpuscular Hemoglobin Concent 30.8 L Red Cell Distribution Width 15.3 H Platelet Count 195 Mean Platelet Volume 9.6 Neutrophils % 64.3 Lymphocytes % 20.7 Monocytes % 10.0 Eosinophils % 3.5 Basophils % 0.7 Nucleated Red Blood Cells % 0.0 Neutrophils # 3.8 Lymphocytes # 1.2 Monocytes # 0.6 Eosinophils # 0.2 Basophils # 0.0 Nucleated Red Blood Cells # 0.0 Sodium Level 143 Potassium Level 4.6 Chloride Level 108 Carbon Dioxide Level 24 Anion Gap 16 Blood Urea Nitrogen 35 H Creatinine 2.78 H Glucose Level 92 Uric Acid 6.3 Calcium Level 8.9 Phosphorus Level 4.6 Magnesium Level 1.9 Iron Level 77 Total Iron Binding Capacity 277 Percent Iron Saturation 28 Ferritin 24.0 Medications Current Medications Heparin Sodium (Porcine) (Heparin (5000 Units/0.5 ml)) 5,000 unit BID SC Last administered on 09/06/17 08:56; Admin Dose 5,000 UNIT; Start 09/03/17 at 09: 00 Nitroglycerin (Nitroglycerin (Sl Tab) 0.4 Mg) 1 tab Q5M PRN SL ANGINA; Start 09/03/17 at 02:00 Morphine Sulfate (morphine) 2 mg Q4H PRN IV MODERATE PAIN LEVEL 4-6; Start at 02:00 Ondansetron HCl (Zofran Inj) 4 mg Q6H PRN IV NAUSEA AND/OR VOMITING; Start at 02:00 Amlodipine Besylate (Norvasc) 2.5 mg DAILY PO Last administered on 09/06/17 08:48; Admin Dose 2.5 MG; Start 09/03/17 at 09:00 Aspirin (Aspirin) 81 mg DAILY PO Last administered on 09/06/17 08:45; Admin Dose 81 MG; Start 09/03/17 at 09:00 Atorvastatin Calcium (Lipitor) 40 mg HS PO Last administered on 09/05/17 21: 21; Admin Dose 40 MG; Start 09/03/17 at 21:00 Carvedilol (Coreg) 3.125 mg BID PO Last administered on 09/06/17 08:47; Admin Dose 3.125 MG; Start 09/03/17 at 09:00 Isosorbide Mononitrate (Imdur) 30 mg DAILY PO Last administered on 09/06/17 08:47; Admin Dose 30 MG; Start 09/03/17 at 09:00 Ranolazine (Ranexa) 500 mg Q12 PO Last administered on 09/06/17 08:45; Admin Dose 500 MG; Start 09/03/17 at 09:00 Ticagrelor (Brilinta) 90 mg BID PO Last administered on 09/06/17 08:57; Admin Dose 90 MG; Start 09/03/17 at 09:00 Allopurinol (Zyloprim) 100 mg DAILY PO Last administered on 09/06/17 08:45; Admin Dose 100 MG; Start 09/04/17 at 09:00 Tamsulosin HCl (Flomax) 0.4 mg HS PO Last administered on 09/05/17 21:21; Admin Dose 0.4 MG; Start 09/04/17 at 21:00 Cholecalciferol (Vitamin D) 2,000 unit DAILY PO Last administered on 08:46; Admin Dose 2,000 UNIT; Start 09/05/17 at 10:00 Senna (Senokot) 1 tab DAILY PO Last administered on 09/06/17 08:48; Admin Dose 1 TAB; Start 09/05/17 at 22:30 Assessment/Plan Chief Complaint/Hosp Course 1. CHEST/ Back pain: nonangina 2. CAD 3. HX multiple PCI 4. CKD 5. HTN 6. Dyslipidemia cont current meds including asa/ brilinta/ coreg/ statin ok for dc from cardiac stand point pt has an appointment to see me in office ANH CARRERA MD [facility] Problems: ANH CARRERA MD Sep 06, 2017 13:04
--- NOTE | 2017-09-06 13:53 | DS ---
Date/Time of Note Date/Time of Note DATE: 09/06/17 TIME: 13:51 Discharge Summary Admission/Discharge Info Admit Date/Time Sep 02, 2017 at 23:08 Discharge Date/Time Discharge Diagnosis 1. Chest pain: nonangina, likely costochondritis. 2. CAD, HX multiple PCI 3. CKD, stage IV 4. Vitamin D deficiency. 5. HTN 6. Dyslipidemia 7. Gout. 8. BPH Patient Condition: Stable Procedures 09/03/2017. 2D echocardiogram. Conclusions 1. Normal left ventricular systolic function. Normal left ventricular cavity size. Moderate concentric left ventricular hypertrophy. Ejection fraction is visually estimated at 65 %. Tissue Doppler/Mitral Doppler indices are consistent with impaired relaxation (Stage I diastolic dysfunction). E/E`=6. 2. Normal right ventricular size. Normal right ventricular systolic function. 3. The left atrium is normal in size. 4. The right atrium is normal in size. 5. Normal appearance and function of the mitral valve with trace physiologic regurgitation. 6. No significant aortic stenosis or insufficiency. Aortic cusps appear mildly calcified. No aortic regurgitation. 7. Normal appearance and function of the tricuspid valve with trace physiologic regurgitation. Normal right ventricular systolic pressure. 8. Normal size and normal respiratory collapse consistent with normal right atrial pressure. Hospital Course This is a 67-year-old male with a past medical history of coronary artery disease with multiple stents 8 in the past, hypertension, BPH, chronic kidney disease, gout, who presented to the emergency room for evaluation of substernal chest pain. Patient did not have any other constitutional symptoms. Patient also reported that he had his last cardiac catheterization was done 6 months ago at [facility] and was reported that he had 40% blockage. Patient was admitted for further evaluation. A cardiology consult was called. Patient was continued on aspirin, Brilinta, beta blockers, statin, PRN nitro and morphine. For CKD, he was also evaluated by nephrology colleagues and renal function was monitored closely. He was continued on his home medications. Serial troponin 3 was negative. 12-lead EKG without any evidence of ischemia. 2D echocardiogram with preserved ejection fraction. Patient is also noted with vitamin D deficiency and was started on replacement. His renal function remained stable. At this time, as per cardiology, likely cause of chest pain is less likely ACS and mostly costochondritis. He was continued on appropriate pain medications. Patient was continued on diet. He did have any further episodes of chest pain and was feeling back to his baseline. At this time, there is no further inpatient workup indicated and patient can be monitored with cardiology and nephrology outpatient follow-up. Disposition: Patient will be discharged home with outpatient follow-up. Patient verbalized discharge instructions. Approximately 60 minutes was spent in coordinating the discharge on this patient. Patient was seen in collaboration with . Home Meds Active Scripts Atorvastatin* (Atorvastatin*) 40 Mg Tablet, 40 MG PO DAILY@21 for 30 Days, TAB 5 Refills Prov:RASHAHANAREBECCATENA S. 07/21/16 Famotidine* (Famotidine*) 20 Mg Tablet, 20 MG PO DAILY for 30 Days, TAB 3 Refills Prov:RANDTENA S. 07/21/16 Aspirin* (Aspirin* Chew) 81 Mg Tab.chew, 81 MG PO DAILY for 30 Days, TAB.CHEW 8 Refills Prov:RANDTENA S. 07/21/16 Reported Medications Amlodipine Besylate* (Amlodipine Besylate*) 2.5 Mg Tablet, 2.5 MG PO DAILY, #30 TAB 09/03/17 Carvedilol* (Carvedilol*) 3.125 Mg Tablet, 3.125 MG PO BID, #60 TAB 09/03/17 Isosorbide Mononitrate* (Isosorbide Mononitrate*) 30 Mg Tab.er.24h, 30 MG PO QAM , TAB 09/03/17 Ticagrelor* (Brilinta*) 90 Mg Tablet, 90 MG PO Q12, TAB 09/03/17 Allopurinol* (Allopurinol*) 300 Mg Tablet, 300 MG PO DAILY, TAB 09/03/17 Ranolazine* (Ranexa*) 500 Mg Tab.sr.12h, 500 MG PO BID, TAB 09/03/17 Discontinued Reported Medications Tamsulosin Hcl* (Flomax*) 0.4 Mg Cap.er.24h, 0.4 MG PO BID, CAP 12/08/14 Discontinued Scripts Clopidogrel Bisulfate* (Clopidogrel Bisulfate*) 75 Mg Tablet, 75 MG PO DAILY for 30 Days, TAB 8 Refills Prov:RASHAHANATENA S. 07/21/16 Metoprolol Succinate* (Toprol XL*) 50 Mg Tab.er.24h, 50 MG PO DAILY for 30 Days , TAB 4 Refills Prov:TENA AGUILAR 07/21/16 Follow-up Plan 1. Follow-up with (patient already has appointment) [id number] [facility] [address] [place] [address] Office 2. Follow-up with (Digital Media Producer)-patient already has appointment for 09/08/2017. [address] [facility] [address] [place] [address] Office 3.Follow up with primary care physician in 1 week If you don't have one please let someone know, we can give you resources that may help you pick one. You may also call your insurance company to assign one to you. Review your medication list with your nurse before leaving and if you need new prescriptions please let your nurse know. I may have made changes to your home medications or given you new prescriptions, please let your primary doctor know as well. Stay compliant with your medications and report any side effects to your PCP or pharmacist. Return to the ER if you have any concerns and cannot reach your doctors or call your insurance company, they usually have a nurse that can help you. 4. Call 911 or go to the nearest emergency room if experiencing loss of consciousness, dizziness, chest pain, shortness of breath, vomiting/abdominal pain, speech difficulties, motor weakness or any unusual symptoms. Primary Care Provider Maria Esther Pop Pending Labs Laboratory Tests Test 09/06/17 07:07 White Blood Count 6.010^3/ul (4.8-10.8) Red Blood Count 4.7810^6/ul (4.70-6.10) Hemoglobin 13.4g/dl (14.0-18.0) Hematocrit 43.5% (42.0-52.0) Mean Corpuscular Volume 91.0fl (82.0-101.0) Mean Corpuscular Hemoglobin 28.0pg (29.0-33.0) Mean Corpuscular Hemoglobin Concent 30.8g/dl (32.0-37.0) Red Cell Distribution Width 15.3% (11.5-14.5) Platelet Count 72525^3/UL (140-415) Mean Platelet Volume 9.6fl (7.4-10.4) Neutrophils % 64.3% (39.0-77.0) Lymphocytes % 20.7% (15.0-51.0) Monocytes % 10.0% (0.0-11.0) Eosinophils % 3.5% (0.0-7.0) Basophils % 0.7% (0.0-2.0) Nucleated Red Blood Cells % 0.0/100WBC (0.0-0.0) Neutrophils # 3.810^3/ul (1.6-7.5) Lymphocytes # 1.210^3/ul (0.8-2.9) Monocytes # 0.610^3/ul (0.3-0.9) Eosinophils # 0.210^3/ul (0.0-0.5) Basophils # 0.010^3/ul (0.0-0.1) Nucleated Red Blood Cells # 0.010^3/ul (0.0-0.0) Sodium Level 143mmol/L (135-144) Potassium Level 4.6mmol/L (3.5-5.1) Chloride Level 108mmol/L (97-110) Carbon Dioxide Level 24mmol/L (21-31) Anion Gap 16 (8-16) Blood Urea Nitrogen 35mg/dl (7-20) Creatinine 2.78mg/dl (0.61-1.24) Glucose Level 92mg/dl (70-220) Uric Acid 6.3mg/dl (3.1-7.9) Calcium Level 8.9mg/dl (8.4-10.2) Phosphorus Level 4.6mg/dl (2.5-4.9) Magnesium Level 1.9mg/dl (1.7-2.5) Iron Level 77ug/dl (35-150) Total Iron Binding Capacity 277ug/dl (241-421) Percent Iron Saturation 28% SAT (22-52) Ferritin 24.0ng/ml (11.1-264.0) ADIEL SOLO NP Sep 06, 2017 13:53
== END 2017-09-06 18:00 | disposition home or self-care (01) | DRG 206 ==
LOC: E/R 21:26 → TEL 23:08
PROVIDERS: ADMIT Internal Medicine; ATTEND Internal Medicine
DX: M94.0 Chondrocostal junction syndrome [Tietze] (principal); N18.4 Chronic kidney disease, stage 4 (severe); I25.10 Atherosclerotic heart disease of native coronary artery without angina pectoris; I12.9 Hypertensive chronic kidney disease with stage 1 through stage 4 chronic kidney disease, or unspecified chronic kidney disease; N40.0 Benign prostatic hyperplasia without lower urinary tract symptoms; M10.9 Gout, unspecified; E78.00 Pure hypercholesterolemia, unspecified; E55.9 Vitamin D deficiency, unspecified; N28.1 Cyst of kidney, acquired; Z95.5 Presence of coronary angioplasty implant and graft; Z88.0 Allergy status to penicillin; Z79.82 Long term (current) use of aspirin
CPT/HCPCS: 36415; 71010; 76775; 80048; 80053; 80069; 81001; 82652; 82728; 83036; 83540; 83735; 84100; 84443; 84484; 84560; 85025; 85610; 85730; 93306; J1644; J7030

== ENCOUNTER 2017-10-01 20:35 | Inpatient (IN) | payer MEDICARE, OTHER ==
[~2017-10-01] VITALS: Ht 172.7 cm; Wt 77.0 kg
[~2017-10-01 20:35] MED LIST changes: +ALLO300T2 PO; +AMLO2.5T78 PO; +CARV3.1260 PO; -CLOP75TA4 PO; +ISOS30TA5 PO; -METO-319 PO; +RANO500T2 PO; +TICA90TA PO
[2017-10-01 20:43] VITALS: Ht 172.7 cm; Wt 77.0 kg
[2017-10-01] MEDS ORDERED: morphine 4 MG/ML VIAL IM STA (20:45)
[2017-10-01] MEDS ORDERED: morphine 4 MG/ML VIAL IV STA (21:46)
[2017-10-01] MEDS ORDERED: SOD CHLORIDE 0.9% 1,000 ML IV STA (21:46)
[2017-10-01 22:25] LABS: BASOPHILS % 0.3 % (0.0-2.0); EOSINOPHILS # 0.1 10^3/ul (0.0-0.5); EOSINOPHILS % 2.1 % (0.0-7.0); HEMATOCRIT 41.8 % (42.0-52.0); HEMOGLOBIN 13.2 g/dl (14.0-18.0); LYMPHOCYTES # 0.9 10^3/ul (0.8-2.9); LYMPHOCYTES % 14.8 % (15.0-51.0); MEAN CORPUSCULAR HEMOGLOBIN 28.8 pg (29.0-33.0); MEAN CORPUSCULAR HGB CONC 31.6 g/dl (32.0-37.0); MEAN CORPUSCULAR VOLUME 91.3 fl (82.0-101.0); MEAN PLATELET VOLUME 9.9 fl (7.4-10.4); MONOCYTE # 0.6 10^3/ul (0.3-0.9); NEUTROPHIL # 4.5 10^3/ul (1.6-7.5); PLATELET COUNT 200 10^3/UL (140-415); RED BLOOD COUNT 4.58 10^6/ul (4.70-6.10); RED CELL DISTRIBUTION WIDTH 15.1 % (11.5-14.5); WHITE BLOOD COUNT 6.2 10^3/ul (4.8-10.8)
--- NOTE | 2017-10-01 22:29 | RADRPT ---
PROCEDURE: XR Hip. CLINICAL INDICATION: Fall with left hip pain. TECHNIQUE: AP and frog lateral views of the left hip were performed. COMPARISON: None. FINDINGS: Fractures at the neck base and intertrochanteric left hip, with varus angulation of the distal fragm ent. Remaining osseous structures otherwise without evident acute fracture. IMPRESSION: Fractures at the neck base and intertrochanteric left hip with varus angulation of the distal fragme nt. RPTAT: [facility] Physician Sadie Date Time Electronically viewed and signed by Physician Sadie on 10/01/2017 22:28 RS/
[2017-10-01] MEDS ORDERED: MAGN400T28 PO (22:32)
[2017-10-01] MEDS ORDERED: SENN-53 PO (22:33)
--- NOTE | 2017-10-01 22:41 | RADRPT ---
PROCEDURE: CHEST - 1 VIEW CLINICAL INDICATION: 67-year-old male with chest/abdominal pain. TECHNIQUE: A single frontal AP semi-erect portable view of the chest was performed. The images we re reviewed on a PACS workstation. COMPARISON: CHEST 09/02/2017; [facility] CHEST 07/18/2016; [facility] CHEST 12/08/2014; [facility] PORTABLE CHEST 10/28/20 08 FINDINGS: The cardiomediastinal silhouette is within normal limits without significant interval change. There is mild aortic arch calcification. There is persistent mild left basilar subsegmental atelectasis an d/or scarring. There is no evidence for an infiltrate. There is no evidence for congestive heart f ailure. There is no evidence for pneumothorax. The osseous structures are intact. IMPRESSION: 1. Calcified thoracic aortic arch. 2. Mild left basilar subsegmental atelectasis and/or scarring. .Fidencio Flores MD, MD Date Time Electronically viewed and signed by .Fidencio Flores MD, on 10/01/2017 22:41 .M/
[2017-10-01 22:48] LABS: PROTIME 13.2 Sec (12.2-14.2)
[2017-10-01 22:50] LABS: CALCIUM 8.5 mg/dl (8.4-10.2); CREATININE 2.75 mg/dl (0.61-1.24); POTASSIUM 4.5 mmol/L (3.5-5.1)
[2017-10-01] MEDS ORDERED: HYDROmorphONE 1 MG/ML SYG IV STA (23:35)
[2017-10-02] VITALS (8 sets, daily range): BP systolic 147–177; BP diastolic 77–89; PULSE 80; RESP 16–20; TEMP 98
[2017-10-02] MEDS ORDERED: HYDROmorphONE 1 MG/ML SYG IV STA (00:33)
[2017-10-02] MEDS ORDERED: ONDANSETRON 4 MG INJ IV PRN (01:00)
[2017-10-02] MEDS ORDERED: ACETAMINOPHEN 325 MG TAB PO PRN (01:00)
--- NOTE | 2017-10-02 01:07 | ERD ---
ER Documentation Chief Complaint Chief Complaint mechanical GLF, left thigh pain w/ slight possible rotation. +CMS foot. 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 He suffered no other injury and did not hit his head. He is otherwise healthy and has hypertension. States that he normally has creatinine around 2.6. ROS All systems reviewed and are negative except as per history of present illness. Medications Home Meds Active Scripts Tamsulosin Hcl* (Flomax*) 0.4 Mg Cap.er.24h, 0.4 MG PO HS, #30 CAP Prov:ADIEL SOLO V. CALENDER LET OFF OPERATOR 09/06/17 Atorvastatin* (Atorvastatin*) 40 Mg Tablet, 40 MG PO DAILY@21 for 30 Days, TAB 5 Refills Prov:RAADRIAN HARKINSP S. 07/21/16 Famotidine* (Famotidine*) 20 Mg Tablet, 20 MG PO DAILY for 30 Days, TAB 3 Refills Prov:RAHIADRIANP S. 07/21/16 Aspirin* (Aspirin* Chew) 81 Mg Tab.chew, 81 MG PO DAILY for 30 Days, TAB.CHEW 8 Refills Prov:RAADRIAN HARKINSP S. 07/21/16 Reported Medications Sennosides* (Senna Lax*) 8.6 Mg Tablet, 1 TAB PO BID, TAB 10/01/17 Magnesium Oxide* (Magnesium Oxide*) 400 Mg Tablet, 400 MG PO DAILY, TAB 10/01/17 Amlodipine Besylate* (Amlodipine Besylate*) 2.5 Mg Tablet, 2.5 MG PO DAILY, #30 TAB 09/03/17 Carvedilol* (Carvedilol*) 3.125 Mg Tablet, 3.125 MG PO BID, #60 TAB 09/03/17 Isosorbide Mononitrate* (Isosorbide Mononitrate*) 30 Mg Tab.er.24h, 30 MG PO QAM , TAB 09/03/17 Ticagrelor* (Brilinta*) 90 Mg Tablet, 90 MG PO Q12, TAB 09/03/17 Allopurinol* (Allopurinol*) 300 Mg Tablet, 300 MG PO DAILY, TAB 09/03/17 Ranolazine* (Ranexa*) 500 Mg Tab.sr.12h, 500 MG PO BID, TAB 09/03/17 Allergies Allergies: Coded Allergies: Penicillins (Unverified Allergy, Unknown, 09/03/17) PMhx/Soc History of Surgery: Yes (kidney cyst removed, 8 stents placed) Anesthesia Reaction: No Hx Neurological Disorder: No Hx Respiratory Disorders: No Hx Cardiac Disorders: Yes (CAD, 8 stents placed) Hx Psychiatric Problems: No Hx Miscellaneous Medical Probl: Yes (Gout) Hx Alcohol Use: No Hx Substance Use: No Hx Tobacco Use: No Smoking Status: Never smoker Physical Exam Vitals Vital Signs Date Time Temp Pulse Resp B/P Pulse Ox O2 Delivery O2 Flow Rate FiO2 10/01/17 22:00 98.0 89 16 178/91 100 Room Air 10/01/17 20:56 98.0 62 12 145/70 100 Room Air 10/01/17 20:43 98.0 69 20 145/70 100 Physical Exam Const: [] Severe distress Head: Atraumatic Eyes: Normal Conjunctiva ENT: Normal External Ears, Nose and Mouth. Neck: Full range of motion..~ No meningismus. Resp: Clear to auscultation bilaterally Cardio: Regular rate and rhythm, no murmurs Abd: Soft, non tender, non distended. Normal bowel sounds Skin: No petechiae or rashes Back: No midline or flank tenderness Ext: No cyanosis, or edema, severe tenderness to greater trochanter on right side. Any attempted minimally blood pressure of internal/external rotation causes even more severe pain. Patient is neurovascularly intact with good sensation and pulses to his distal extremity. No other injuries. Patient does have pooling of blood in his right ankle. He states this was from a week ago. Neur: Awake and alert and oriented 3, no focal deficits Psych: Normal Mood and Affect Result Diagram: 10/01/17215410/01/172154 Results 24 hrs Laboratory Tests Test 10/01/17 21:55 White Blood Count 6.210^3/ul Red Blood Count 4.5810^6/ul Hemoglobin 13.2g/dl Hematocrit 41.8% Mean Corpuscular Volume 91.3fl Mean Corpuscular Hemoglobin 28.8pg Mean Corpuscular Hemoglobin Concent 31.6g/dl Red Cell Distribution Width 15.1% Platelet Count 58264^3/UL Mean Platelet Volume 9.9fl Neutrophils % 73.0% Lymphocytes % 14.8% Monocytes % 9.0% Eosinophils % 2.1% Basophils % 0.3% Nucleated Red Blood Cells % 0.0/100WBC Neutrophils # 4.510^3/ul Lymphocytes # 0.910^3/ul Monocytes # 0.610^3/ul Eosinophils # 0.110^3/ul Basophils # 0.010^3/ul Nucleated Red Blood Cells # 0.010^3/ul Prothrombin Time 13.2Sec Prothrombin Time Ratio 1.0 INR International Normalized Ratio 1.00 Activated Partial Thromboplast Time 28.0Sec Sodium Level 144mmol/L Potassium Level 4.5mmol/L Chloride Level 110mmol/L Carbon Dioxide Level 23mmol/L Anion Gap 16 Blood Urea Nitrogen 34mg/dl Creatinine 2.75mg/dl Glucose Level 106mg/dl Calcium Level 8.5mg/dl Current Medications Medications (Trade) Dose Ordered Sig/Jorge Route PRN Reason Start Time Stop Time Status Last Admin Dose Admin Morphine Sulfate 4 mg 4 mg ONCE STAT IM 10/01/17 20:45 10/01/17 20:47 DC 10/01/17 20:54 Sodium Chloride (NS) 1,000 ml @ 1,000 mls/hr Q1H STAT IV 10/01/17 21:46 10/01/17 22:45 DC 10/01/17 22:00 Morphine Sulfate (morphine) 4 mg ONCE STAT IV 10/01/17 21:46 10/01/17 21:48 DC 10/01/17 22:00 Hydromorphone HCl (Dilaudid) 1 mg ONCE STAT IV 10/01/17 23:35 10/01/17 23:36 DC 10/01/17 23:42 Ondansetron HCl (Zofran Inj) 4 mg BRIDGE ORDER PRN IV NAUSEA AND/OR VOMITING 10/02/17 01:00 10/03/17 00:59 Acetaminophen (Tylenol Tab) 650 mg ER BRIDGE PRN PO MILD PAIN/FEVER 10/02/17 01:00 10/03/17 00:59 Hydromorphone HCl (Dilaudid) 1 mg ONCE STAT IV 10/02/17 00:33 10/02/17 00:34 DC Procedures/MDM Left hip fracture secondary to mechanical fall. Patient also has chronic kidney disease with creatinine level consistent with what he had said. He was immediately given an injection of morphine for the pain. It became more severe after x-ray and patient was given another 4 of morphine but then required a milligram of Dilaudid. An hour later he had severe pain again was quite another milligram of Dilaudid. I did speak with Dr. Orellana, who will see this patient in consultation request that we obtain a CT scan for preop planning. Patient is being admitted to the panel Dr. Roche, in stable condition. Preop workup was performed. EKG interpretation: Normal sinus rhythm rate of 67 premature atrial complexes, determinate axis, no ST or T-wave changes concerning for acute ischemia. Chest x-ray interpretation: I see no acute process. I see no infiltrate, no pneumothorax, no fracture, no widened mediastinum. Left hip x-ray interpretation: Intertrochanteric femur fracture. Some angulation and shortening. No other fractures or dislocations seen. Departure Diagnosis: Primary Impression: Closed left hip fracture Additional Impressions: Chronic renal insufficiency Mild anemia Condition: SERGEY Chaudhary DO Oct 02, 2017 01:07
--- NOTE | 2017-10-02 01:09 | RADRPT ---
PROCEDURE: Noncontrast CT examination of the left hip. CLINICAL INDICATION: Fracture of the left hip. TECHNIQUE: Noncontrast CT examination of the left hip, with axial, sagittal and coronal reformatte d images. CTDI: 18.25 and DLP: 385.54 COMPARISON: Plain film examination of the left hip dated 10/01/2017. FINDINGS: Intertrochanteric fracture of the left hip, with fracture at the base of the femoral neck and a medi al subtrochanteric fracture component at the inferior margin of the lesser trochanter. Remaining oss eous structures unremarkable without acute fracture. IMPRESSION: Intertrochanteric fracture of the left hip. RPTAT: [facility] Physician Sadie Date Time Electronically viewed and signed by Jane Burrows Physician on 10/02/2017 01:09 RS/
[2017-10-02] MEDS: hydrALAzine 20 MG INJ IV PRN ×2 (03:40→11:59)
[2017-10-02] MEDS: morphine 4 MG/ML VIAL IV PRN ×4 (05:20→20:53)
--- NOTE | 2017-10-02 07:34 | HP ---
Date/Time of Note Date/Time of Note DATE: 10/02/17 TIME: 07:28 Assessment/Plan VTE Prophylaxis VTE Prophylaxis Intervention: SCD's Lines/Catheters IV Catheter Type (from Nrsg): Peripheral IV Urinary Cath still in place: No Assessment/Plan Assessment/Plan ASSESSMENT 67-year-old male with a history of CAD status post multiple stents, CKD, hypertension, dyslipidemia, gout, BPH here was left hip fracture status post mechanical fall PLAN -Brillanta and aspirin have been on hold. -Ortho evaluation -Pain management -As far as surgical clearance is concerned, he currently does not have any active cardiac symptoms. 12-lead EKG with no acute ischemia. 2D echo from last month showed preserved EF of 65%. Has METS > 4. Patient may proceed with the planned surgery with no additional cardiac risk stratification. Will get cardiology on board. HPI/ROS Admit Date/Time Admit Date/Time Oct 02, 2017 at 00:34 Hx of Present Illness This is a 67-year-old male who was history of CAD with stent, CKD, hypertension , dyslipidemia, gout, BPH who presents to the ER complaining of left hip pain status post fall. He said he was working on a door at his home and while transporting the door he had a mechanical fall and fell on the left side of his body injuring his hip. He was unable to get up on his own. He denied chest pain, shortness of breath, palpitations, dizziness before or after the fall. When he presented to the ER, he was found to have Intertrochanteric fracture of the left hip PMH/Family/Social Past Surgical History Past Surgical Hx: angioplasty Social History Smoking Status: Never smoker Exam/Review of Systems Vital Signs Vitals Vital Signs Date Time Temp Pulse Resp B/P Pulse Ox O2 Delivery O2 Flow Rate FiO2 10/02/17 02:15 97.6 80 19 167/79 94 10/02/17 01:03 Room Air Exam Constitutional: alert, oriented, well developed Head: atraumatic, normocephalic Eyes: EOMI, PERRL Respiratory: clear to auscultation, normal air movement Cardiovascular: nl pulses, regular rate and rhythm Gastrointestinal: non-tender, soft Extremities: other (Left hip tenderness) Labs Result Diagram: 10/01/17215410/01/172154 Medications Medications Current Medications Morphine Sulfate (morphine) 3 mg Q4H PRN IV PAIN Last administered on 05:20; Admin Dose 3 MG; Start 10/02/17 at 03:00 Hydralazine HCl (Apresoline) 10 mg Q4H PRN IV ELEVATED BLOOD PRESSURE Last administered on 10/02/17 03:40; Admin Dose 10 MG; Start 10/02/17 at 03:00 MEDINA MEJIA MD Oct 02, 2017 07:34
--- NOTE | 2017-10-02 09:04 | CONS ---
DATE OF ADMISSION: 10/02/2017 DATE OF CONSULTATION: 10/02/2017 CHIEF COMPLAINT: Left hip pain. HISTORY OF PRESENT ILLNESS: This is a 67-year-old male with history of coronary artery disease who had a fall. He is complaining of pain in the left groin. He was unable to ambulate following the f all, he was brought in to the emergency department by EMS. He denies any chest pain, shortness of b reath. He denies any loss of consciousness. PAST MEDICAL HISTORY: Coronary artery disease, chronic kidney disease, hypertension, dyslipidemia, gout, BPH. MEDICATIONS: 1. Plavix 75 mg. 2. Lipitor. 3. Flomax. 4. Aspirin 81 mg. PAST SURGICAL HISTORY: Multiple cardiac stents. SOCIAL HISTORY: Denies tobacco, alcohol or drug use. FAMILY HISTORY: Noncontributory. ALLERGIES: PENICILLIN. REVIEW OF SYSTEMS: Negative except for HPI. PHYSICAL EXAMINATION: VITAL SIGNS: Temperature 98.0, blood pressure 178/91, pulse of 89, respiratory rate of 16. GENERAL: Patient is in no acute distress. He is resting comfortably. EXTREMITIES: Left lower extremity. There is no deformity. There are no open wounds. There is georges n with axial loading. He is neurovascularly intact throughout the left lower extremity. IMAGING X-RAYS: Left hip x-ray, 2 views: Two views of the left hip demonstrate a basicervical neck femoral neck fracture, with intertrochanteric extension. There is varus angulation. CT of the left lower extremity demonstrates basicervical neck fracture, with an intertrochanteric ex tension. IMPRESSION: A 67-year-old male who had a mechanical fall and sustained a left closed displaced basi cervical femoral neck fracture with intertrochanteric extension. PLAN: The patient will be nonweightbearing. He will require preoperative medical clearance. I dis cussed with the patient the risks associated with surgery, which include but are not limited to infe ction, deep venous thrombosis, pulmonary embolism, damage to neurovascular structures, nonunion, mal union, need for revision of surgery, heart attack, stroke, risk of anesthesia, need for blood transf usion, and even . I also explained to the patient and his son that there is up to a 35% to 40% chance of 1 year mortality. He will be n.p.o. after midnight. Plavix and anticoagulation will be stopped prior to surgery. The plan will be to perform a left hip cephalomedullary nail. Dictated By: SHELBY HENDERSON MD SS/DOLLY Conf#: [id number] DID#: [id number] CC: MEDINA MEJIA MD;*EndCC*
--- NOTE | 2017-10-02 09:13 | QN ---
Documentation Comment Patient admitted with left hip fracture after mechanical fall. Orthopedic consultation was requested with Dr. Noyola. A CT of the lower extremity was also performed. Patient's renal function remains at baseline. However, we are going to request inpatient nephrology evaluation prior to any orthopedic procedures. At this time, what it seems like patient is not scheduled for any orthopedic surgical procedures today. We will resume patient on his home medication. However, we will put a hold order to [facility] for now. As patient also had a strong cardiac history with multiple stents placed in the past, we are going to request a preoperative cardiac clearance at this point even though , patient had a full cardiac workup done last month here at [facility]. Patient was seen in collaboration with . ADIEL SOLO NP Oct 02, 2017 09:13
--- NOTE | 2017-10-02 10:43 | CONS ---
Date/Time of Note Date/Time of Note DATE: 10/02/17 TIME: 10:34 Assessment/Plan Assessment/Plan Additional Assessment/Plan Preoperative cardiac risk stratification Hip fracture CAD with history of PCI August 2016 Preserved ejection fraction Hypertension Dyslipidemia Chronic kidney disease -Extensive discussion had with our patient and son at bedside. Patient is quite an active gentleman, can walk 2-3 miles without symptoms of chest pain or shortness of breath and climb a minimum of 2 flights of stairs without any symptoms. His last PCI was at [facility] August 2016, he did have an angiogram done at [facility] approximately 4 months ago and as per the patient and son, he was told all of his stents were open and no need for any further intervention. Given his good exercise capacity, no significant ischemic abnormalities on ECG, and the urgent need of orthopedic procedure, patient is at an intermediate risk for any untoward cardiac events for his planned orthopedic procedure. The benefits likely outweigh the risks. Would restart antiplatelet therapy as soon as okay by our surgery colleagues. Continue beta-trinity as heart rate and blood pressure permits, continue statin therapy if no contraindication. Dr Barragan to resume care 10/03/2017 Consultation Date/Type/Reason Admit Date/Time Oct 02, 2017 at 00:34 Type of Consultation: cv Reason for Consultation Preoperative cardiac risk stratification Hx of Present Illness This is a 67-year-old male past medical history of coronary artery disease status post PCI most recently in August 2016, hypertension, renal dysfunction who presents after a fall and a hip fracture. 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 Patient states he had a door in between his legs and he tripped and fell. This was not secondary to loss of consciousness, chest pain or shortness of breath. Otherwise he is an active gentleman. He was fixing the roof an hour prior to this procedure climbing up and down the ladder. He tells me he is able to walk minimum 2-3 miles and does not get chest pain or shortness of breath. He is able to climb at least 2 flights of stairs without chest pain or shortness of breath. He did have a recent cardiac catheterization [facility] approximately 4 months ago secondary to chest discomfort and as per the patient, he was told all of his stents were open and no need for any further intervention. He denies any abdominal pain currently, chest pain, shortness of breath or dizziness 12 point review of systems was performed with all pertinent positives and negatives mentioned above and all else is negative Past Medical History Medical History: coronary artery disease, high cholesterol, hypertension, renal disease Past Surgical History Past Surgical Hx: angioplasty, other (Abdominal cyst drainage) Family History Significant Family History: no pertinent family hx Social History Alcohol Use: none Smoking Status: Never smoker Exam/Review of Systems Vital Signs Vitals Vital Signs Date Time Temp Pulse Resp B/P Pulse Ox O2 Delivery O2 Flow Rate FiO2 10/02/17 07:49 98.1 104 20 159/89 96 10/02/17 01:03 Room Air Intake and Output 10/01/17 10/01/17 10/02/17 14:59 22:59 06:59 Intake Total 500 ml Output Total 600 ml Balance -100 ml Exam No apparent distress, son at bedside Constitutional: alert, oriented Head: normocephalic Respiratory: clear to auscultation, normal air movement Cardiovascular: other (S1-S2 heard), regular rate and rhythm Gastrointestinal: bowel sounds, non-tender, other (No guarding), soft Extremities: edema (Trivial) Results Result Diagram: 10/01/17215410/01/172154 Results 24 hrs Laboratory Tests Test 10/01/17 21:55 White Blood Count 6.2 Red Blood Count 4.58 L Hemoglobin 13.2 L Hematocrit 41.8 L Mean Corpuscular Volume 91.3 Mean Corpuscular Hemoglobin 28.8 L Mean Corpuscular Hemoglobin Concent 31.6 L Red Cell Distribution Width 15.1 H Platelet Count 200 Mean Platelet Volume 9.9 Neutrophils % 73.0 Lymphocytes % 14.8 L Monocytes % 9.0 Eosinophils % 2.1 Basophils % 0.3 Nucleated Red Blood Cells % 0.0 Neutrophils # 4.5 Lymphocytes # 0.9 Monocytes # 0.6 Eosinophils # 0.1 Basophils # 0.0 Nucleated Red Blood Cells # 0.0 Prothrombin Time 13.2 Prothrombin Time Ratio 1.0 INR International Normalized Ratio 1.00 Activated Partial Thromboplast Time 28.0 Sodium Level 144 Potassium Level 4.5 Chloride Level 110 Carbon Dioxide Level 23 Anion Gap 16 Blood Urea Nitrogen 34 H Creatinine 2.75 H Glucose Level 106 Calcium Level 8.5 Medications Medications Current Medications Morphine Sulfate (morphine) 3 mg Q4H PRN IV PAIN Last administered on t 05:20; Admin Dose 3 MG; Start 10/02/17 at 03:00 Hydralazine HCl (Apresoline) 10 mg Q4H PRN IV ELEVATED BLOOD PRESSURE Last administered on 10/02/17 03:40; Admin Dose 10 MG; Start 10/02/17 at 03:00 Influenza Virus Vaccine (Fluzone) 0.5 ml ONCE ONCE IM* ; Start 10/03/17 at 09: 00; Stop 10/03/17 at 09:01 Allopurinol (Zyloprim) 300 mg DAILY PO ; Start 10/03/17 at 09:00 Amlodipine Besylate (Norvasc) 2.5 mg DAILY PO ; Start 10/03/17 at 09:00 Aspirin (Aspirin) 81 mg DAILY PO ; Start 10/03/17 at 09:00 Atorvastatin Calcium (Lipitor) 40 mg DAILY@21 PO ; Start 10/02/17 at 21:00 Carvedilol (Coreg) 3.125 mg BID PO ; Start 10/02/17 at 21:00 Famotidine (Pepcid) 20 mg DAILY PO ; Start 10/03/17 at 09:00 Isosorbide Mononitrate (Imdur) 30 mg QAM PO ; Start 10/03/17 at 09:00 Magnesium Oxide (Mag-Ox 400) 400 mg DAILY PO ; Start 10/03/17 at 09:00 Ranolazine (Ranexa) 500 mg BID PO ; Start 10/02/17 at 11:00 Senna (Senokot) 1 tab BID PO ; Start 10/02/17 at 21:00 Tamsulosin HCl (Flomax) 0.4 mg HS PO ; Start 10/02/17 at 21:00 Procedures Procedures ECG done last night demonstrated sinus rhythm at 67 bpm, QRS 96 ms, no significant ischemic ST abnormalities Walter Hussein DO Oct 02, 2017 10:43
[2017-10-02] MEDS: RANOLAZINE (SR) 500 MG TAB PO SCH ×2 (11:59→20:51)
[2017-10-02] MEDS: ATORVASTATIN 40 MG TAB PO SCH (20:51)
[2017-10-02] MEDS: TAMSULOSIN (SR) 0.4 MG CAP PO SCH (20:51)
[2017-10-02] MEDS: SENNA TAB PO SCH (20:51)
[2017-10-02 23:44] LABS: ADD UMIC YES; UR ASCORBIC ACID NEGATIVE (NEGATIVE); UR BILIRUBIN (Dip) NEGATIVE (NEGATIVE); UR BLOOD (Dip) 2+ mg/dL (NEGATIVE); UR CLARITY CLEAR (CLEAR); UR COLOR YELLOW (YELLOW); UR GLUCOSE (Dip) NEGATIVE (NEGATIVE); UR KETONES (Dip) NEGATIVE (NEGATIVE); UR LEUKOCYTE ESTERASE (Dip) NEGATIVE Leu/ul (NEGATIVE); UR NITRITE (Dip) NEGATIVE (NEGATIVE); UR RBC 8 /HPF (0-5); UR SPECIFIC GRAVITY (Dip) 1.009 (1.003-1.030); UR TOTAL PROTEIN (Dip) 2+ mg/dl (NEGATIVE); UR UROBILINOGEN (Dip) NEGATIVE (NEGATIVE)
[2017-10-03] VITALS (20 sets, daily range): BP systolic 93–142; BP diastolic 58–88; PULSE 72–93; RESP 15–22
[2017-10-03] MEDS: DEXTROSE 5%-0.45% NACL 1,000 ML IV SCH ×2 (00:11→23:49)
[2017-10-03] MEDS: morphine 4 MG/ML VIAL IV PRN (00:56)
[2017-10-03 06:13] LABS: BASOPHILS % 0.5 % (0.0-2.0); EOSINOPHILS # 0.4 10^3/ul (0.0-0.5); EOSINOPHILS % 4.6 % (0.0-7.0); HEMATOCRIT 40.8 % (42.0-52.0); LYMPHOCYTES # 1.3 10^3/ul (0.8-2.9); MEAN CORPUSCULAR HEMOGLOBIN 29.1 pg (29.0-33.0); MEAN CORPUSCULAR HGB CONC 31.9 g/dl (32.0-37.0); MEAN CORPUSCULAR VOLUME 91.5 fl (82.0-101.0); MEAN PLATELET VOLUME 10.1 fl (7.4-10.4); MONOCYTE # 0.8 10^3/ul (0.3-0.9); MONOCYTES % 10.6 % (0.0-11.0); NEUTROPHIL # 5.1 10^3/ul (1.6-7.5); NEUTROPHILS % 66.9 % (39.0-77.0); PLATELET COUNT 192 10^3/UL (140-415); RED BLOOD COUNT 4.46 10^6/ul (4.70-6.10); RED CELL DISTRIBUTION WIDTH 15.5 % (11.5-14.5); WHITE BLOOD COUNT 7.6 10^3/ul (4.8-10.8)
[2017-10-03 06:23] LABS: CALCIUM 8.8 mg/dl (8.4-10.2); CREATININE 2.64 mg/dl (0.61-1.24); MAGNESIUM 1.9 mg/dl (1.7-2.5); POTASSIUM 4.5 mmol/L (3.5-5.1)
--- NOTE | 2017-10-03 07:04 | CONS ---
DATE OF ADMISSION: 10/02/2017 DATE OF CONSULTATION: 10/02/2017 NEPHROLOGY CONSULTATION REQUESTING PHYSICIAN: Dr. Roche. REASON FOR CONSULTATION: The patient's volume status management, chronic kidney disease. HISTORY OF PRESENT ILLNESS: The patient is a 67-year-old male with history of coronary artery disea se, status post PTCA, chronic kidney disease stage IV, hypertension, hyperlipidemia, BPH, gout, pres ents to the hospital after a mechanical fall and hip fracture, the patient is [facility]. The patient reports that he is seeing Dr. Quinonez as an outpatient for chronic kidney disease. 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 The patient is not diabetic. PAST MEDICAL HISTORY: Significant for: 1. Coronary artery disease, status post PTCA. 2. Hypertension. 3. Hyperlipidemia. MEDICATIONS OUTPATIENT: 1. Norvasc. 2. Hydralazine. 3. Flomax. 4. Atorvastatin. 5. Coreg. 6. Ranexa. ALLERGIES: TO PENICILLIN. SOCIAL HISTORY: No smoking, no alcohol recorded. FAMILY HISTORY: No history of kidney disease in the family. REVIEW OF SYSTEMS: The patient denies any fever or chills. No chest pain, no shortness of breath, no palpitations, no cough, had some nausea, no vomiting, no melena, no hematemesis, no hematuria. N o hearing loss. Reports muscle and joint pain. Reports some depression. All other review of system s reviewed which were negative. PHYSICAL EXAMINATION: VITAL SIGNS: The temperature is 98.8, heart rate is 80, respiratory rate 16, blood pressure 177/86, oxygen saturation 97% on room air. GENERAL: The patient is awake, alert. HEENT: Anicteric. Oral mucous membranes appear moist. NECK: Supple. LUNGS: Clear to auscultation bilaterally. HEART: Regular rate and rhythm. No rub. ABDOMEN: Soft, nontender, positive bowel sounds. EXTREMITIES: Evidence of external rotation. LABORATORY STUDIES: White count 6.2, hemoglobin 13.2, platelet count is 200. Sodium is 144, potass ium 4.5, bicarbonate is 23, BUN 34, creatinine 2.75. ASSESSMENT AND PLAN: 1. Chronic kidney disease, stage IV, secondary to non-steroidal anti-inflammatory drug nephropathy, hypertensive nephrosclerosis. Will check urinalysis, urine protein creatinine ratio. Avoid NSAIDs . Avoid hypotension. 2. Hypertension, not well controlled. Will increase patient's Norvasc to 10 mg daily, hold for his blood pressure less than 120. 3. Left hip fracture, awaiting surgery. 4. Anemia, currently at goal. 5. Chronic kidney disease anemia bone disorder. Follow up PTH level, check 25 vitamin D level. 6. Benign prostatic hypertrophy. Continue Flomax. 7. Coronary artery disease. Further care per cardiology. Currently placing Plavix on hold. 8. Hyperlipidemia. Continue statins. Thank you very much for this consultation. Will follow with you closely while the patient is in the hospital. Dictated By: LIZ LEGER MD AP/NTS Conf#: [id number] DID#: [id number] CC: MEDINA ROCHE MD;*EndCC*
[2017-10-03] MEDS: SENNA TAB PO SCH ×2 (09:00→21:29)
[2017-10-03] MEDS ORDERED: AMLODIPINE 2.5 MG TAB PO SCH (09:00)
[2017-10-03] MEDS ORDERED: INFLUENZA VIRUS VACCINE 0.5 ML (DISPENSING) IM* ONE (09:00)
--- NOTE | 2017-10-03 09:18 | PN ---
Date/Time of Note Date/Time of Note DATE: 10/03/17 TIME: 09:06 Assessment/Plan VTE Prophylaxis VTE Prophylaxis Intervention: other (pre-operative) Lines/Catheters [facility]from [facility] Saline Lock Urinary Cath still in place: No Assessment/Plan Assessment/Plan 1. CKD Stage IV: Proteinuric with recent baseline around 2.5 mg/dL with an eGFR of approximately 25% by MDRD secondary to hypertensive nephrosclerosis with a history of NSAID use. Renal function stable and at his baseline. Lytes/ volume acceptable, non oliguric. Continue IVF for now given upcoming surgery. Avoid nephrotoxins, to include NSAIDs and contrast dye. Dose all meds for his GFR. Will follow his renal function. 2. CAD: History of CAD with multiple stents and cardiac cath at [facility] within past year. No chest pain at present. Plavix on hold given surgery. Management per cards/primary team. 3. HTN: BPs slightly elevated, will follow post operatively. Has PRN hydralazine in addition to scheduled Coreg and Amlodipine. If BPs remain up post operatively, will consider increasing beta trinity. Would avoid RAAS blockade given his advanced CKD. 4. History of gout: On allopurinol. No recent flares. Will check a uric acid level. 5. BPH: On tamsulosin. No voiding issues at present. 6. Vitamin D deficiency: PTH and vitamin D are pending. 7. Anemia: Mild. History of normal iron studies normal. No need for CARLOS at present. Will follow. 8. L Hip Fx: After mechanical fall. Awaiting surgery today. It was a pleasure to see Mr. Ernandez today. Thank you for allowing me to participate in his care. We will continue to follow along with you. Please call with questions or concerns. . D/w patient and RN. Subjective 24 Hr Interval Summary Free Text/Dictation Patient seen for CKDIV. No acute events. VSS. Seen in pre-op holding area for repair of femoral fx after mechanical fall. Feeling well w/o complaints. Labs/meds reviewed. Constitutional: no complaints Eyes: no complaints ENT: no complaints Respiratory: no complaints Cardiovascular: no complaints Gastrointestinal: no complaints Genitourinary: no complaints Musculoskeletal: other (hip pain, improved) Skin: no complaints Neurologic: no complaints Endocrine: no complaints Exam/Review of Systems Vital Signs Vitals Vital Signs Date Time Temp Pulse Resp B/P Pulse Ox O2 Delivery O2 Flow Rate FiO2 10/03/17 07:42 98.2 79 19 142/77 98 10/02/17 11:59 Room Air Intake and Output 10/02/17 10/02/17 10/03/17 15:00 23:00 07:00 Intake Total 840 ml 850 ml Output Total 1500 ml 800 ml Balance -660 ml 50 ml Exam Constitutional: other (no distress), well developed Head: atraumatic, normocephalic Eyes: nl conjunctiva ENMT: mucosa pink and moist Neck: other (no jvd) Respiratory: clear to auscultation Cardiovascular: regular rate and rhythm Gastrointestinal: non-tender, soft Musculoskeletal: nl extremities to inspection Extremities: other (no edema) Neurological: other (no gross or focal neuro deficits) Skin: nl turgor Results Result Diagram: 10/03/17 0456 10/03/17 0456 Results 24 hrs Laboratory Tests Test 10/02/17 19:30 10/03/17 04:56 Urine Color YELLOW Urine Clarity CLEAR Urine pH 6.0 Urine Specific [place] 1.009 Urine Ketones NEGATIVE Urine Nitrite NEGATIVE Urine Bilirubin NEGATIVE Urine Urobilinogen NEGATIVE Urine Leukocyte Esterase NEGATIVE Urine Microscopic RBC 8 H Urine Microscopic WBC 1 Urine Hemoglobin 2+ H Urine Glucose NEGATIVE Urine Total Protein 2+ H White Blood Count 7.6 # Red Blood Count 4.46 L Hemoglobin 13.0 L Hematocrit 40.8 L Mean Corpuscular Volume 91.5 Mean Corpuscular Hemoglobin 29.1 Mean Corpuscular Hemoglobin Concent 31.9 L Red Cell Distribution Width 15.5 H Platelet Count 192 Mean Platelet Volume 10.1 Neutrophils % 66.9 Lymphocytes % 17.0 Monocytes % 10.6 Eosinophils % 4.6 Basophils % 0.5 Nucleated Red Blood Cells % 0.0 Neutrophils # 5.1 Lymphocytes # 1.3 Monocytes # 0.8 Eosinophils # 0.4 Basophils # 0.0 Nucleated Red Blood Cells # 0.0 Sodium Level 142 Potassium Level 4.5 Chloride Level 109 Carbon Dioxide Level 24 Anion Gap 14 Blood Urea Nitrogen 32 H Creatinine 2.64 H Glucose Level 109 Calcium Level 8.8 Phosphorus Level 3.1 Magnesium Level 1.9 Medications Medications Current Medications Morphine Sulfate (morphine) 3 mg Q4H PRN IV PAIN Last administered on 00:56; Admin Dose 3 MG; Start 10/02/17 at 03:00 Hydralazine HCl (Apresoline) 10 mg Q4H PRN IV ELEVATED BLOOD PRESSURE Last administered on 10/02/17 11:59; Admin Dose 10 MG; Start 10/02/17 at 03:00 Allopurinol (Zyloprim) 300 mg DAILY PO ; Start 10/03/17 at 09:00 Aspirin (Aspirin) 81 mg DAILY PO ; Start 10/03/17 at 09:00 Atorvastatin Calcium (Lipitor) 40 mg DAILY@21 PO Last administered on 20:51; Admin Dose 40 MG; Start 10/02/17 at 21:00 Carvedilol (Coreg) 3.125 mg BID PO Last administered on 10/02/17 20:52; Admin Dose 3.125 MG; Start 10/02/17 at 21:00 Famotidine (Pepcid) 20 mg DAILY PO ; Start 10/03/17 at 09:00 Isosorbide Mononitrate (Imdur) 30 mg QAM PO ; Start 10/03/17 at 09:00 Magnesium Oxide (Mag-Ox 400) 400 mg DAILY PO ; Start 10/03/17 at 09:00 Ranolazine (Ranexa) 500 mg BID PO Last administered on 10/02/17 20:51; Admin Dose 500 MG; Start 10/02/17 at 11:00 Senna (Senokot) 1 tab BID PO Last administered on 10/02/17 20:51; Admin Dose 1 TAB; Start 10/02/17 at 21:00 Tamsulosin HCl (Flomax) 0.4 mg HS PO Last administered on 10/02/17 20:51; Admin Dose 0.4 MG; Start 10/02/17 at 21:00 Amlodipine Besylate 10 mg 10 mg DAILY PO ; Start 10/03/17 at 09:00 Dextrose/Sodium Chloride (D5-1/2ns) 1,000 ml @ 50 mls/hr Q20H IV Last administered on 10/03/17 00:11; Admin Dose 50 MLS/HR; Start 10/03/17 at 00:00 ROGERS MCDONALD Oct 03, 2017 09:17
[2017-10-03] MEDS ORDERED: ROCURONIUM 50 MG INJ ONE (09:30)
[2017-10-03] MEDS ORDERED: SUCCINYLCHOLINE CHLORIDE 100 MG/5 ML SYG IV ONE (09:30)
[2017-10-03] MEDS ORDERED: CLINDAMYCIN 600 MG/D5W (PMX) 50 ML IVPB ONE (09:30)
[2017-10-03] MEDS ORDERED: PROPOFOL 20 ML ONE (09:30)
[2017-10-03] MEDS ORDERED: LIDOCAINE 2% (SDV) 5 ML INJ ONE (09:30)
[2017-10-03] MEDS ORDERED: SUGAMMADEX SODIUM 200 MG/2 ML VIAL IV ONE (09:30)
[2017-10-03] MEDS ORDERED: NEOMYC/POLYMYX/BACIT 30 GM OINT ONE (09:43)
[2017-10-03] MEDS ORDERED: POLYMYXIN/BACITRACIN 1L IRRIG ONE (09:43)
--- NOTE | 2017-10-03 09:50 | PN ---
Date/Time of Note Date/Time of Note DATE: 10/03/17 TIME: 09:44 Assessment/Plan VTE Prophylaxis VTE Prophylaxis Intervention: SCD's Lines/Catheters [facility] Saline Lock Urinary Cath still in place: No Assessment/Plan Chief Complaint/Hosp Course 67-year-old male with a past medical history of multiple stents placed in the past with the most recent cath done 6 mos ago at [facility] 1. Mechanical fall with left closed displaced femoral neck fracture. -Expert care of orthopedics is greatly appreciated and patient is for ORIF today. -Continue pain medications. Postoperative diet, anticoagulation and weightbearing per surgery. 2. Coronary artery disease with multiple PCI with multiple stents. -Continue aspirin/beta-trinity/statin. --Recommend initiation of Brilinta as soon as cleared from orthopedics. 3. CKD, Stage IV.Baseline creatinine 2.5-2.9. Renal function appears to be baseline. -Avoid nephrotoxins, monitor renal function closely. -Nephrology evaluation appreciated and we will follow-up with recommendations. 4. Hypertension: Stable. -Continue antihypertensives with adjustment as needed 5. Gout -on allopurinol 6. BPH -Continue home meds 7. Vitamin D deficiency. -Continue replacement. DVT prophylaxis: Defer to orthopedic surgery. Plan: Cardiology and nephrology preoperative evaluation greatly appreciated. Patient is for ORIF today. Given patient's extensive cardiac medical history, patient is at high risk for any untoward medical events for surgery. However, benefit likely outweigh risks and recommended to have surgical intervention. Patient was seen in collaboration with DR. Horan Problems: Subjective 24 Hr Interval Summary Free Text/Dictation Patient is for orthopedic surgery for left hip fracture. He is not in any acute distress. Exam/Review of Systems Vital Signs Vitals Vital Signs Date Time Temp Pulse Resp B/P Pulse Ox O2 Delivery O2 Flow Rate FiO2 10/03/17 07:42 98.2 79 19 142/77 98 10/02/17 11:59 Room Air Intake and Output 10/02/17 10/02/17 10/03/17 15:00 23:00 07:00 Intake Total 840 ml 850 ml Output Total 1500 ml 800 ml Balance -660 ml 50 ml Exam General: Well developed,adequately built, not in any acute distress . HEENT: Normocephalic, Atraumatic, No laceration or hematoma; Eyes: PEERL, Conjunctiva clear, Anicteric sclera Neck: Supple without any lymphadenopathy, nontender, no JVD, no carotid bruits, trachea midline, no thyromegaly Cardiac: S1, S2 auscultated, regular rhythm and rate, no mumurs or gallop Pulmonary: Normal respiratory effort. Chest clear to auscultation bilaterally, no adventitious breath sounds GI: Abdomen normal to inspection. Soft, non tender, non- distended, no masses, no rebound tenderness or guarding. Bowel sounds active on all four quadrants Genitourinary: Deferred Extremities: Left hip fracture site with pain and decreased range of motion. No cyanosis, clubbing, or edema. Pulses [2+] bilaterally. Full ROM on all four extremities. No focal weakness appreciated. Neurologic: Alert to person, place, time, and situation. Affect appropriate, intact sensation. Skin: Clean,dry, and intact. No ecchymosis, no rashes, or lesions Results Result Diagram: 10/03/17 0456 10/03/17 0456 Results 24 hrs Laboratory Tests Test 10/02/17 19:30 10/03/17 04:56 Urine Color YELLOW Urine Clarity CLEAR Urine pH 6.0 Urine Specific [place] 1.009 Urine Ketones NEGATIVE Urine Nitrite NEGATIVE Urine Bilirubin NEGATIVE Urine Urobilinogen NEGATIVE Urine Leukocyte Esterase NEGATIVE Urine Microscopic RBC 8 H Urine Microscopic WBC 1 Urine Hemoglobin 2+ H Urine Glucose NEGATIVE Urine Total Protein 2+ H White Blood Count 7.6 # Red Blood Count 4.46 L Hemoglobin 13.0 L Hematocrit 40.8 L Mean Corpuscular Volume 91.5 Mean Corpuscular Hemoglobin 29.1 Mean Corpuscular Hemoglobin Concent 31.9 L Red Cell Distribution Width 15.5 H Platelet Count 192 Mean Platelet Volume 10.1 Neutrophils % 66.9 Lymphocytes % 17.0 Monocytes % 10.6 Eosinophils % 4.6 Basophils % 0.5 Nucleated Red Blood Cells % 0.0 Neutrophils # 5.1 Lymphocytes # 1.3 Monocytes # 0.8 Eosinophils # 0.4 Basophils # 0.0 Nucleated Red Blood Cells # 0.0 Sodium Level 142 Potassium Level 4.5 Chloride Level 109 Carbon Dioxide Level 24 Anion Gap 14 Blood Urea Nitrogen 32 H Creatinine 2.64 H Glucose Level 109 Calcium Level 8.8 Phosphorus Level 3.1 Magnesium Level 1.9 Medications Medications Current Medications Morphine Sulfate (morphine) 3 mg Q4H PRN IV PAIN Last administered on 00:56; Admin Dose 3 MG; Start 10/02/17 at 03:00 Hydralazine HCl (Apresoline) 10 mg Q4H PRN IV ELEVATED BLOOD PRESSURE Last administered on 10/02/17 11:59; Admin Dose 10 MG; Start 10/02/17 at 03:00 Allopurinol (Zyloprim) 300 mg DAILY PO ; Start 10/03/17 at 09:00 Aspirin (Aspirin) 81 mg DAILY PO ; Start 10/03/17 at 09:00 Atorvastatin Calcium (Lipitor) 40 mg DAILY@21 PO Last administered on 20:51; Admin Dose 40 MG; Start 10/02/17 at 21:00 Carvedilol (Coreg) 3.125 mg BID PO Last administered on 10/02/17 20:52; Admin Dose 3.125 MG; Start 10/02/17 at 21:00 Famotidine (Pepcid) 20 mg DAILY PO ; Start 10/03/17 at 09:00 Isosorbide Mononitrate (Imdur) 30 mg QAM PO ; Start 10/03/17 at 09:00 Magnesium Oxide (Mag-Ox 400) 400 mg DAILY PO ; Start 10/03/17 at 09:00 Ranolazine (Ranexa) 500 mg BID PO Last administered on 10/02/17 20:51; Admin Dose 500 MG; Start 10/02/17 at 11:00 Senna (Senokot) 1 tab BID PO Last administered on 10/02/17 20:51; Admin Dose 1 TAB; Start 10/02/17 at 21:00 Tamsulosin HCl (Flomax) 0.4 mg HS PO Last administered on 10/02/17 20:51; Admin Dose 0.4 MG; Start 10/02/17 at 21:00 Amlodipine Besylate 10 mg 10 mg DAILY PO ; Start 10/03/17 at 09:00 Dextrose/Sodium Chloride (D5-1/2ns) 1,000 ml @ 50 mls/hr Q20H IV Last administered on 10/03/17 00:11; Admin Dose 50 MLS/HR; Start 10/03/17 at 00:00 ADIEL SOLO NP Oct 03, 2017 09:50
[2017-10-03] MEDS ORDERED: POLYMYXIN/BACITRACIN 1L IRRIG IRR ONE (10:06)
--- NOTE | 2017-10-03 10:49 | SIPON ---
Date/Time of Note Date/Time of Note DATE: 10/03/17 TIME: 10:48 Operative Report Preoperative Diagnosis Left Intertrochanteric femur fracture Postoperative Diagnosis same Operation/Procedure Performed Left hip cephalomedullary nail Surgeon Pauly Noyola MD bricklayer's assistant CHUCKIE Mei Anesthesia: general Estimated blood loss: minimal Transfusion Required none Specimen none Grafts/Implants [place] Gamma Nail, [id number], 100mm lag screw, 47.5mm distal locking screw Complications none SHELBY NOYOLA MD Oct 03, 2017 10:49
[2017-10-03] MEDS ORDERED: HYDROCODONE/APAP (10/325) TAB PO PRN (11:00)
[2017-10-03] MEDS ORDERED: CLINDAMYCIN 600 MG/D5W (PMX) 50 ML IVPB SCH (11:00)
[2017-10-03] MEDS ORDERED: DIPHENHYDRAMINE 50 MG INJ IV PRN (12:00)
[2017-10-03] MEDS ORDERED: MEPERIDINE 25 MG INJ IV PRN (12:00)
[2017-10-03] MEDS ORDERED: HYDROmorphONE (0.2 MG/ML) 10ML SYG IV PRN ×2 (12:00)
[2017-10-03] MEDS ORDERED: FENTAnyl 50 MCG/ML VIAL IV PRN ×2 (12:00)
--- NOTE | 2017-10-03 12:13 | RADRPT ---
PROCEDURE: Intraoperative imaging of the left hip with fluoroscopy. CLINICAL INDICATION: Left hip pain. Intraoperative. TECHNIQUE: 6 images of the left hip were obtained in the operating room with an image intensifier. No radiologist was in attendance. 68.6 seconds of fluoroscopy time was used. COMPARISON: Left hip radiographs dated 10/01/2017. FINDINGS: Images demonstrate open reduction and internal fixation of the left hip with a sujatha in the shaft of t he femur, a screw in the neck of the femur, and a locking screw distally in the femur. IMPRESSION: 1. Satisfactory intraoperative imaging of the left hip. RPTAT: QQ .Joe Deluna MD, MD Date Time Electronically viewed and signed by .Joe Deluna MD, MD on 10/03/2017 12:13 .R/
[2017-10-03] MEDS: ASPIRIN 81 MG TAB PO SCH (13:11)
[2017-10-03] MEDS: RANOLAZINE (SR) 500 MG TAB PO SCH ×2 (13:11→22:31)
[2017-10-03] MEDS: ISOSORBIDE MONONITRATE(SR)30 MG TAB PO SCH (13:12)
[2017-10-03] MEDS: ALLOPURINOL 300 MG TAB PO SCH (13:12)
[2017-10-03] MEDS: FAMOTIDINE 20 MG TAB PO SCH (13:14)
[2017-10-03] MEDS: MAGNESIUM OXIDE 400 MG TAB PO SCH (13:14)
[2017-10-03] MEDS: AMLODIPINE 10 MG TAB PO SCH (13:15)
--- NOTE | 2017-10-03 14:28 | OPR ---
DATE OF OPERATION: 10/03/2017 SURGEON: Shelby Noyola MD. SENIOR CARE ASSISTANT: CHUCKIE Stauffer. PREOPERATIVE DIAGNOSIS: Left intertrochanteric femur fracture. POSTOPERATIVE DIAGNOSIS: Left intertrochanteric femur fracture. OPERATION PERFORMED: 1. Left hip cephalomedullary nailing CPT code 75245. 2. Interpretation of left hip x-rays, 2 views. ANESTHESIOLOGIST: Dr. Casillas. ANESTHESIA: General. ESTIMATED BLOOD LOSS: 50 mL. COMPLICATIONS: None. SPECIMENS: None. DISPOSITION: To PACU in stable condition. IMPLANT USED: A [place] gamma nail, size 11 x 380 mm 125 degrees, 100 mm lag screw, 47.5 mm distal locking screw. INDICATION FOR PROCEDURE: This is a 67-year-old male who sustained a mechanical fall resulting in a left closed displaced intertrochanteric femur fracture. The risks, benefits, alternatives of surgi queenie intervention were discussed with the patient and informed consent was obtained. The risks of surgery include but are not limited to infection, deep venous thrombosis, pulmonary emb olism, malunion, nonunion, need for revision surgery, heart attack, stroke, risks associated with an esthesia, need for blood transfusion and . I also discussed a 1 year mortality of up to 35% wi th the patient and family and informed consent was obtained. DETAILS OF THE PROCEDURE: The patient was met in the preoperative suite. The correct operative sit e was confirmed and marked. He was then brought into the operating room. After induction of genera l anesthesia, he was placed in supine position on the Secretary table. A preliminary timeout was taken t o identify the correct operative site. At this point, a closed reduction maneuver was performed and confirmed with the use of AP and lateral x-rays of the left hip. The left lower extremity was then prepped and draped in the usual sterile fashion. Before starting, a timeout was taken to identify the correct operative site and confirm the preoperative antibiotics consisting of 600 mg of clindamy virgil were administered. At this point, a small incision was made proximal to the greater trochanter and the guidewire was placed at the tip of the greater trochanter and in line with the femoral shaft it was visualized with both AP and lateral x-rays of the left hip. At this point, the soft tissue protection sleeve followed by the opening reamer were advanced over the guidewire. The ball tip brayden dewire was then inserted down in the femoral shaft to the superior pole of the patella. It was then measured to 400 mm. Sequential reaming was then performed using a 9.5 mm reamer, going up to a 13 mm reamer for size 11 x 380 mm nail. The nail was then advanced over the guidewire. The fracture w as visualized and noted to be reduced with cortical contact on both AP and lateral x-rays of the hip . At this point, the trocar was then placed with a lag screw and a small stab incision was made. T he guidewire was then placed in a center-center position in both AP and lateral views of the hip. I t was then measured to 100 mm. The reamer was then advanced over the guidewire and the 100 mm lag s crew was then placed. At this point, a stab incision was made over the distal static hole and using the [place] method bicortical drilling was performed, measurements were taken and at 47.5 mm distal locking screw was placed. At this point, final images were taken which demonstrated the fra cture to be reduced with cortical contact on both views and the nail in acceptable position. The wo unds were thoroughly irrigated. The fascia was closed using #1 Vicryl interrupted [id number] f ashion followed by closure with subcutaneous tissue 2-0 Vicryl, and the skin with neela. A steril e dressing was applied. There were no complications. Patient was awakened and taken to postoperati ve care unit in stable condition. POSTOPERATIVE CARE: Patient will be weightbearing as tolerated. He will work with physical therapy . He will receive 2 additional doses of IV antibiotics. He will receive mechanical and chemical DV T prophylaxis. Upon discharge, he will follow up in my office within 10-14 days at the [facility]. Dictated By: SHELBY BYRNE/DOLLY Conf#: [id number] DID#: [id number]
--- NOTE | 2017-10-03 18:03 | CONS ---
Date/Time of Note Date/Time of Note DATE: 10/03/17 TIME: 18:01 Consult Date/Type/Reason Admit Date/Time Oct 02, 2017 at 00:34 Initial Consult Date Type of Consultation: cv Subjective cardiology follow up note: S: D/W STAFF and son pt with no chest pain or pressure. no leg pain now s/p hip surgery 10/03/17 General: no acute distress O: HEENT: NC/AT. pupils are equal. round. NECK: NO JVD. no stridor. CV: RRR. systolic murmur; no gallop or rubs. PULM: no wheezing or rhonchi. GI: SOFT, NT, ND, no rebound or guarding Extremity: trace B/L LE edema. no clubbing. s/p left leg surgery neuro: awake and alert, OX3. Psych: calm and pleasant rectal: deferred : normal male Objective Vital Signs Date Time Temp Pulse Resp B/P Pulse Ox O2 Delivery O2 Flow Rate FiO2 10/03/17 15:00 98.0 71 18 131/71 99 10/03/17 14:15 Nasal Cannula 10/03/17 11:30 2.0 Intake and Output 10/02/17 10/02/17 10/03/17 15:00 23:00 07:00 Intake Total 840 ml 850 ml Output Total 1500 ml 800 ml Balance -660 ml 50 ml Results/Medications Result Diagram: 10/03/17 0456 10/03/17 0456 Results 24 hrs Laboratory Tests Test 10/02/17 19:30 10/03/17 04:56 Urine Color YELLOW Urine Clarity CLEAR Urine pH 6.0 Urine Specific [place] 1.009 Urine Ketones NEGATIVE Urine Nitrite NEGATIVE Urine Bilirubin NEGATIVE Urine Urobilinogen NEGATIVE Urine Leukocyte Esterase NEGATIVE Urine Microscopic RBC 8 H Urine Microscopic WBC 1 Urine Hemoglobin 2+ H Urine Glucose NEGATIVE Urine Total Protein 2+ H White Blood Count 7.6 # Red Blood Count 4.46 L Hemoglobin 13.0 L Hematocrit 40.8 L Mean Corpuscular Volume 91.5 Mean Corpuscular Hemoglobin 29.1 Mean Corpuscular Hemoglobin Concent 31.9 L Red Cell Distribution Width 15.5 H Platelet Count 192 Mean Platelet Volume 10.1 Neutrophils % 66.9 Lymphocytes % 17.0 Monocytes % 10.6 Eosinophils % 4.6 Basophils % 0.5 Nucleated Red Blood Cells % 0.0 Neutrophils # 5.1 Lymphocytes # 1.3 Monocytes # 0.8 Eosinophils # 0.4 Basophils # 0.0 Nucleated Red Blood Cells # 0.0 Sodium Level 142 Potassium Level 4.5 Chloride Level 109 Carbon Dioxide Level 24 Anion Gap 14 Blood Urea Nitrogen 32 H Creatinine 2.64 H Glucose Level 109 Calcium Level 8.8 Phosphorus Level 3.1 Magnesium Level 1.9 Medications Current Medications Morphine Sulfate (morphine) 3 mg Q4H PRN IV PAIN Last administered on 00:56; Admin Dose 3 MG; Start 10/02/17 at 03:00 Hydralazine HCl (Apresoline) 10 mg Q4H PRN IV ELEVATED BLOOD PRESSURE Last administered on 10/02/17 11:59; Admin Dose 10 MG; Start 10/02/17 at 03:00 Allopurinol (Zyloprim) 300 mg DAILY PO Last administered on 10/03/17 13:12; Admin Dose 300 MG; Start 10/03/17 at 09:00 Aspirin (Aspirin) 81 mg DAILY PO Last administered on 10/03/17 13:11; Admin Dose 81 MG; Start 10/03/17 at 09:00 Atorvastatin Calcium (Lipitor) 40 mg DAILY@21 PO Last administered on 20:51; Admin Dose 40 MG; Start 10/02/17 at 21:00 Carvedilol (Coreg) 3.125 mg BID PO Last administered on 10/03/17 13:13; Admin Dose 3.125 MG; Start 10/02/17 at 21:00 Famotidine (Pepcid) 20 mg DAILY PO Last administered on 10/03/17 13:14; Admin Dose 20 MG; Start 10/03/17 at 09:00 Isosorbide Mononitrate (Imdur) 30 mg QAM PO Last administered on 10/03/17 13: 12; Admin Dose 30 MG; Start 10/03/17 at 09:00 Magnesium Oxide (Mag-Ox 400) 400 mg DAILY PO Last administered on 10/03/17 13 :14; Admin Dose 400 MG; Start 10/03/17 at 09:00 Ranolazine (Ranexa) 500 mg BID PO Last administered on 10/03/17 13:11; Admin Dose 500 MG; Start 10/02/17 at 11:00 Senna (Senokot) 1 tab BID PO Last administered on 10/02/17 20:51; Admin Dose 1 TAB; Start 10/02/17 at 21:00 Tamsulosin HCl (Flomax) 0.4 mg HS PO Last administered on 10/02/17 20:51; Admin Dose 0.4 MG; Start 10/02/17 at 21:00 Amlodipine Besylate 10 mg 10 mg DAILY PO Last administered on 10/03/17 13:15 ; Admin Dose 10 MG; Start 10/03/17 at 09:00 Dextrose/Sodium Chloride (D5-1/2ns) 1,000 ml @ 50 mls/hr Q20H IV Last administered on 10/03/17 00:11; Admin Dose 50 MLS/HR; Start 10/03/17 at 00:00 Cholecalciferol (Vitamin D) 2,000 unit DAILY PO ; Start 10/04/17 at 09:00 Acetaminophen/ Hydrocodone Bitart ([place] (10/325)) 1 tab Q4H PRN PO PAIN LEVEL 8-10; Start 10/03/17 at 11:00 Acetaminophen/ Hydrocodone Bitart 1 tab 1 tab Q4H PRN PO PAIN LEVEL 1-5; Start 10/03/17 at 11:00; Stop 10/06/17 at 10:59 Clindamycin HCl/ Dextrose (Cleocin 600 Mg/ D5W (Pmx)) 50 ml @ 50 mls/hr Q6 IVPB ; Start 10/03/17 at 18:00; Stop 10/05/17 at 12:59 Assessment/Plan Chief Complaint/Hosp Course 1. hip fracture: s/p surgery 2. CAD 3. HX VT 4. HX P CI 5. CKD 6/ Dyslipidemia cont ASA betablocker post op care DVT prophylaxis as per IM ANH CARRERA MD [facility] Problems: ANH CARRERA MD Oct 03, 2017 18:03
[2017-10-03] MEDS: CLINDAMYCIN 600 MG/D5W (PMX) 50 ML IVPB SCH ×2 (18:59→23:50)
[2017-10-03] MEDS: TAMSULOSIN (SR) 0.4 MG CAP PO SCH (21:29)
[2017-10-03] MEDS: ATORVASTATIN 40 MG TAB PO SCH (21:29)
[2017-10-04 00:05] VITALS: BP 117/61; PULSE 89
[2017-10-04] MEDS: HYDROCODONE/APAP (5/325) TAB PO PRN ×2 (01:01→05:52)
[2017-10-04 05:15] LABS: BASOPHILS % 0.2 % (0.0-2.0); EOSINOPHILS # 0.3 10^3/ul (0.0-0.5); EOSINOPHILS % 3.5 % (0.0-7.0); HEMOGLOBIN 10.5 g/dl (14.0-18.0); LYMPHOCYTES # 1.1 10^3/ul (0.8-2.9); LYMPHOCYTES % 13.8 % (15.0-51.0); MEAN CORPUSCULAR HEMOGLOBIN 28.9 pg (29.0-33.0); MEAN CORPUSCULAR HGB CONC 31.8 g/dl (32.0-37.0); MEAN CORPUSCULAR VOLUME 90.9 fl (82.0-101.0); MEAN PLATELET VOLUME 9.7 fl (7.4-10.4); MONOCYTE # 1.1 10^3/ul (0.3-0.9); MONOCYTES % 13.5 % (0.0-11.0); NEUTROPHIL # 5.4 10^3/ul (1.6-7.5); NEUTROPHILS % 67.9 % (39.0-77.0); PLATELET COUNT 170 10^3/UL (140-415); RED BLOOD COUNT 3.63 10^6/ul (4.70-6.10)
[2017-10-04 05:44] LABS: ALBUMIN 2.9 g/dl (3.3-4.9); CALCIUM 7.9 mg/dl (8.4-10.2); CREATININE 3.13 mg/dl (0.61-1.24); MAGNESIUM 1.8 mg/dl (1.7-2.5); PHOSPHORUS 4.3 mg/dl (2.5-4.9); POTASSIUM 4.8 mmol/L (3.5-5.1)
[2017-10-04] MEDS: CLINDAMYCIN 600 MG/D5W (PMX) 50 ML IVPB SCH ×4 (05:49→23:45)
[2017-10-04 05:57] VITALS: BP 94/55; PULSE 85
--- NOTE | 2017-10-04 07:54 | PN ---
Date/Time of Note Date/Time of Note DATE: 10/04/17 TIME: 07:46 Assessment/Plan VTE Prophylaxis VTE Prophylaxis Intervention: other Lines/Catheters IV Catheter Type (from Nrsg): Peripheral IV Urinary Cath still in place: Yes Reason Cath still needed: other (indicate) (post-op uop monitoring) Assessment/Plan Assessment/Plan 1. CKD Stage IV: Proteinuric with recent baseline around 2.5 mg/dL with an eGFR of approximately 25% by MDRD secondary to hypertensive nephrosclerosis with a history of NSAID use. Mild post-op JONO, non oliguric with normal electrolytes. BPs soft, which may be contributing. Will change IVF from 1/2NS to NS for next 24 hours and follow. BP meds with holding parameters. 2. CAD: History of CAD with multiple stents and cardiac cath at [facility] within past year. Cardiology colleagues on board, appreciate their input. 3. HTN: Relative hypotension. Holding parameters for BP meds. IVF as above. Would avoid RAAS blockade given his advanced CKD. 4. History of gout: On allopurinol. No recent flares. 5. BPH: On tamsulosin. No voiding issues at present. 6. Vitamin D deficiency: PTH and vitamin D are pending. 7. Anemia: Mild at baseline. History of normal iron studies normal. Post-op anemia noted. No need for CARLOS at present. Will follow and transfuse PRN. 8. L Hip Fx: After mechanical fall. S/p L-hip cephalomedullary nailing . Management per Ortho. D/w patient and RN. We will continue to follow along with you. Please call with questions or concerns. . Subjective 24 Hr Interval Summary Free Text/Dictation Seen for CKD. POD#1 L-hip cephalomedullary nailing. No reported complications. No acute overnight events. Vitals stable, however BP soft; asymptomatic. Denies complaints. Labs/meds reviewed. Constitutional: no complaints Eyes: no complaints ENT: no complaints Respiratory: no complaints Cardiovascular: no complaints Gastrointestinal: constipation Genitourinary: no complaints Musculoskeletal: no complaints Skin: no complaints Neurologic: no complaints Endocrine: no complaints Exam/Review of Systems Vital Signs Vitals Vital Signs Date Time Temp Pulse Resp B/P Pulse Ox O2 Delivery O2 Flow Rate FiO2 10/04/17 05:57 98.0 85 94/55 98 Room Air 10/03/17 19:30 18 10/03/17 11:30 2.0 Intake and Output 10/03/17 10/03/17 10/04/17 15:00 23:00 07:00 Intake Total 1080 ml 750 ml 1350 ml Output Total 670 ml 500 ml 900 ml Balance 410 ml 250 ml 450 ml Exam Constitutional: alert, oriented, other (no distress), well developed Psych: no complaints Head: atraumatic, normocephalic Eyes: nl conjunctiva ENMT: mucosa pink and moist Neck: other (no jvd) Respiratory: clear to auscultation Cardiovascular: regular rate and rhythm Gastrointestinal: non-tender, soft Extremities: other (no edema) Neurological: nl mental status Results Result Diagram: 10/04/1744110/04/17441 Results 24 hrs Laboratory Tests Test 10/04/17 04:42 White Blood Count 8.0 Red Blood Count 3.63 L Hemoglobin 10.5 L Hematocrit 33.0 L Mean Corpuscular Volume 90.9 Mean Corpuscular Hemoglobin 28.9 L Mean Corpuscular Hemoglobin Concent 31.8 L Red Cell Distribution Width 15.0 H Platelet Count 170 Mean Platelet Volume 9.7 Neutrophils % 67.9 Lymphocytes % 13.8 L Monocytes % 13.5 H Eosinophils % 3.5 Basophils % 0.2 Nucleated Red Blood Cells % 0.0 Neutrophils # 5.4 Lymphocytes # 1.1 Monocytes # 1.1 H Eosinophils # 0.3 Basophils # 0.0 Nucleated Red Blood Cells # 0.0 Sodium Level 135 Potassium Level 4.8 Chloride Level 105 Carbon Dioxide Level 21 Anion Gap 14 Blood Urea Nitrogen 36 H Creatinine 3.13 H Glucose Level 126 Calcium Level 7.9 L Phosphorus Level 4.3 Magnesium Level 1.8 Albumin 2.9 L Medications Medications Current Medications Morphine Sulfate (morphine) 3 mg Q4H PRN IV PAIN Last administered on 00:56; Admin Dose 3 MG; Start 10/02/17 at 03:00 Hydralazine HCl (Apresoline) 10 mg Q4H PRN IV ELEVATED BLOOD PRESSURE Last administered on 10/02/17 11:59; Admin Dose 10 MG; Start 10/02/17 at 03:00 Allopurinol (Zyloprim) 300 mg DAILY PO Last administered on 10/03/17 13:12; Admin Dose 300 MG; Start 10/03/17 at 09:00 Aspirin (Aspirin) 81 mg DAILY PO Last administered on 10/03/17 13:11; Admin Dose 81 MG; Start 10/03/17 at 09:00 Atorvastatin Calcium (Lipitor) 40 mg DAILY@21 PO Last administered on 21:29; Admin Dose 40 MG; Start 10/02/17 at 21:00 Carvedilol (Coreg) 3.125 mg BID PO Last administered on 10/03/17 13:13; Admin Dose 3.125 MG; Start 10/02/17 at 21:00 Famotidine (Pepcid) 20 mg DAILY PO Last administered on 10/03/17 13:14; Admin Dose 20 MG; Start 10/03/17 at 09:00 Isosorbide Mononitrate (Imdur) 30 mg QAM PO Last administered on 10/03/17 13: 12; Admin Dose 30 MG; Start 10/03/17 at 09:00 Magnesium Oxide (Mag-Ox 400) 400 mg DAILY PO Last administered on 10/03/17 13 :14; Admin Dose 400 MG; Start 10/03/17 at 09:00 Ranolazine (Ranexa) 500 mg BID PO Last administered on 10/03/17 22:31; Admin Dose 500 MG; Start 10/02/17 at 11:00 Senna (Senokot) 1 tab BID PO Last administered on 10/03/17 21:29; Admin Dose 1 TAB; Start 10/02/17 at 21:00 Tamsulosin HCl (Flomax) 0.4 mg HS PO Last administered on 10/03/17 21:29; Admin Dose 0.4 MG; Start 10/02/17 at 21:00 Amlodipine Besylate 10 mg 10 mg DAILY PO Last administered on 10/03/17 13:15 ; Admin Dose 10 MG; Start 10/03/17 at 09:00 Dextrose/Sodium Chloride (D5-1/2ns) 1,000 ml @ 50 mls/hr Q20H IV Last administered on 10/03/17 23:49; Admin Dose 50 MLS/HR; Start 10/03/17 at 00:00 Cholecalciferol (Vitamin D) 2,000 unit DAILY PO ; Start 10/04/17 at 09:00 Acetaminophen/ Hydrocodone Bitart ([place] ()) 1 tab Q4H PRN PO PAIN LEVEL 8-10; Start 10/03/17 at 11:00 Acetaminophen/ Hydrocodone Bitart 1 tab 1 tab Q4H PRN PO PAIN LEVEL 1-5 Last administered on 10/04/17 05:52; Admin Dose 1 TAB; Start 10/03/17 at 11:00; Stop 10/06/17 at 10:59 Clindamycin HCl/ Dextrose (Cleocin 600 Mg/ D5W (Pmx)) 50 ml @ 50 mls/hr Q6 IVPB Last administered on 10/04/17 05:49; Admin Dose 50 MLS/HR; Start 10/03/17 at 18:00; Stop 10/05/17 at 12:59 ROGERS MCDONALD Oct 04, 2017 07:54
--- NOTE | 2017-10-04 08:21 | PN ---
Date/Time of Note Date/Time of Note DATE: 10/04/17 TIME: 08:19 Assessment/Plan VTE Prophylaxis VTE Prophylaxis Intervention: ambulation, SCD's Lines/Catheters IV Catheter Type (from Nrsg): Peripheral IV [place] in Place (from Nrsg): Yes Assessment/Plan Assessment/Plan -Pain Meds as needed -Dressing is clean and intact. -OOB with PT. weight-bear as tolerated with use of front wheeled walker. -SCDs for DVT Prophylaxis. Hospitalist will continue monitoring patient in regards to anticoagulation. -Continue monitoring with Internal Medicine -Patient Stable Subjective 24 Hr Interval Summary 59-year-old male postop day 1 status post left hip ORIF for basicervical fracture with gamma nail implantation. Patient denies any acute overnight events. Pain was well controlled overnight. Patient did initiate physical therapy but experiences discomfort with weightbearing. Denies any acute injury or fall status post surgery. Denies any chest pain/tightness. Denies any shortness of breath. Resting comfortably in bed now. Exam/Review of Systems Vital Signs Vitals Vital Signs Date Time Temp Pulse Resp B/P Pulse Ox O2 Delivery O2 Flow Rate FiO2 10/04/17 05:57 98.0 85 94/55 98 Room Air 10/03/17 19:30 18 10/03/17 11:30 2.0 Intake and Output 10/03/17 10/03/17 10/04/17 15:00 23:00 07:00 Intake Total 1080 ml 750 ml 1350 ml Output Total 670 ml 500 ml 900 ml Balance 410 ml 250 ml 450 ml Exam Free Text/Dictation -No complications with dressing intact. -Thigh soft -5/5 Quadriceps, Tibialis Anterior, EHL Gastrocnemius/Soleus and Peroneals -Normal Sensation -Palpable DP/PT, Capillary Refill <2 secs -No Distal Edema -Negative Chandu Sign/No calf pain -Toes Freely Movable Constitutional: alert, oriented, well developed Results Result Diagram: 10/04/17 0442 10/04/17 044 JOHN SCHWARTZ PA-C Oct 04, 2017 08:21
[2017-10-04 08:30] VITALS: BP 90/55; RESP 18
[2017-10-04] MEDS: RANOLAZINE (SR) 500 MG TAB PO SCH ×2 (08:52→20:45)
[2017-10-04] MEDS: ASPIRIN 81 MG TAB PO SCH ×2 (08:52→20:42)
[2017-10-04] MEDS: AMLODIPINE 10 MG TAB PO SCH (08:54)
[2017-10-04] MEDS: FAMOTIDINE 20 MG TAB PO SCH (08:55)
[2017-10-04] MEDS: SENNA TAB PO SCH ×2 (08:55→20:45)
[2017-10-04] MEDS: MAGNESIUM OXIDE 400 MG TAB PO SCH (08:55)
[2017-10-04] MEDS: CHOLECALCIFEROL 2,000 UNIT CAP PO SCH (08:55)
[2017-10-04] MEDS: ISOSORBIDE MONONITRATE(SR)30 MG TAB PO SCH (09:00)
[2017-10-04] MEDS: ALLOPURINOL 300 MG TAB PO SCH (09:01)
[2017-10-04] MEDS: SOD CHLORIDE 0.9% 1,000 ML IV SCH ×2 (09:03→23:45)
[2017-10-04] MEDS ORDERED: LACTULOSE 30ML CUP PO ONE (09:30)
--- NOTE | 2017-10-04 09:35 | PN ---
Date/Time of Note Date/Time of Note DATE: 10/04/17 TIME: 09:31 Assessment/Plan VTE Prophylaxis VTE Prophylaxis Intervention: ambulation, other (Aspirin twice daily/Brilinta) Lines/Catheters IV Catheter Type (from Nrs): Peripheral IV Urinary Cath still in place: Yes Reason Cath still needed: other (indicate) Assessment/Plan Chief Complaint/Hosp Course 67-year-old male with a past medical history of multiple stents placed in the past with the most recent cath done 6 mos ago at [facility] 1. Mechanical fall with left closed displaced femoral neck fracture. -Status post Left hip cephalomedullary nailing -10/03/2017. -Continue pain medications. Postoperative diet, anticoagulation and weightbearing per surgery. 2. Coronary artery disease with multiple PCI with multiple stents. -Continue aspirin/Brilinta/beta-trinity/statin. 3. CKD, Stage IV.Baseline creatinine 2.5-2.9. Renal function today what it appears slightly worsened. -Avoid nephrotoxins, monitor renal function closely. -Nephrology evaluation appreciated and we will follow-up with recommendations. 4. Hypertension: Stable. -Continue antihypertensives with adjustment as needed 5. Gout -on allopurinol 6. BPH -Continue home meds 7. Vitamin D deficiency. -Continue replacement. 8. Constipation. -We will treat with PRN lactulose. DVT prophylaxis: After discussion with orthopedic surgeon, we are going to start patient on aspirin 81 mg twice a day with continuation of Brilinta. Plan: Follow-up with orthopedic surgery recommendation postoperatively. Follow- up with physical therapy recommendations. Patient was seen in collaboration with DR. Horan Problems: Subjective 24 Hr Interval Summary Free Text/Dictation Patient status post ORIF, left hip, POD #1. Doing well. Complaining of constipation. Exam/Review of Systems Vital Signs Vitals Vital Signs Date Time Temp Pulse Resp B/P Pulse Ox O2 Delivery O2 Flow Rate FiO2 10/04/17 08:30 99.0 96 18 90/55 96 10/04/17 05:57 Room Air 10/03/17 11:30 2.0 Intake and Output 10/03/17 10/03/17 10/04/17 14:59 22:59 06:59 Intake Total 1080 ml 750 ml 1350 ml Output Total 670 ml 500 ml 900 ml Balance 410 ml 250 ml 450 ml Exam General: Well developed,adequately built, not in any acute distress . HEENT: Normocephalic, Atraumatic, No laceration or hematoma; Eyes: PEERL, Conjunctiva clear, Anicteric sclera Neck: Supple without any lymphadenopathy, nontender, no JVD, no carotid bruits, trachea midline, no thyromegaly Cardiac: S1, S2 auscultated, regular rhythm and rate, no mumurs or gallop Pulmonary: Normal respiratory effort. Chest clear to auscultation bilaterally, no adventitious breath sounds GI: Protuberant abdomen. With mild distention.. Soft, non tender, no masses, no rebound tenderness or guarding. Bowel sounds active on all four quadrants Genitourinary: Deferred Extremities: Left hip fracture with surgical incision/dressing intact. No cyanosis, clubbing, or edema. Pulses [2+] bilaterally. Full ROM on all four extremities. No focal weakness appreciated. Neurologic: Alert to person, place, time, and situation. Affect appropriate, intact sensation. Skin: Clean,dry, and intact. No ecchymosis, no rashes, or lesions Results Result Diagram: 10/04/172 10/04/172 Results 24 hrs Laboratory Tests Test 10/04/17 04:42 White Blood Count 8.0 Red Blood Count 3.63 L Hemoglobin 10.5 L Hematocrit 33.0 L Mean Corpuscular Volume 90.9 Mean Corpuscular Hemoglobin 28.9 L Mean Corpuscular Hemoglobin Concent 31.8 L Red Cell Distribution Width 15.0 H Platelet Count 170 Mean Platelet Volume 9.7 Neutrophils % 67.9 Lymphocytes % 13.8 L Monocytes % 13.5 H Eosinophils % 3.5 Basophils % 0.2 Nucleated Red Blood Cells % 0.0 Neutrophils # 5.4 Lymphocytes # 1.1 Monocytes # 1.1 H Eosinophils # 0.3 Basophils # 0.0 Nucleated Red Blood Cells # 0.0 Sodium Level 135 Potassium Level 4.8 Chloride Level 105 Carbon Dioxide Level 21 Anion Gap 14 Blood Urea Nitrogen 36 H Creatinine 3.13 H Glucose Level 126 Calcium Level 7.9 L Phosphorus Level 4.3 Magnesium Level 1.8 Albumin 2.9 L Medications Medications Current Medications Morphine Sulfate (morphine) 3 mg Q4H PRN IV PAIN Last administered on t 00:56; Admin Dose 3 MG; Start 10/02/17 at 03:00 Hydralazine HCl (Apresoline) 10 mg Q4H PRN IV ELEVATED BLOOD PRESSURE Last administered on 10/02/17 11:59; Admin Dose 10 MG; Start 10/02/17 at 03:00 Allopurinol (Zyloprim) 300 mg DAILY PO Last administered on 10/03/17 13:12; Admin Dose 300 MG; Start 10/03/17 at 09:00 Aspirin (Aspirin) 81 mg DAILY PO Last administered on 10/03/17 13:11; Admin Dose 81 MG; Start 10/03/17 at 09:00 Atorvastatin Calcium (Lipitor) 40 mg DAILY@21 PO Last administered on 21:29; Admin Dose 40 MG; Start 10/02/17 at 21:00 Carvedilol (Coreg) 3.125 mg BID PO Last administered on 10/03/17 13:13; Admin Dose 3.125 MG; Start 10/02/17 at 21:00 Famotidine (Pepcid) 20 mg DAILY PO Last administered on 10/03/17 13:14; Admin Dose 20 MG; Start 10/03/17 at 09:00 Isosorbide Mononitrate (Imdur) 30 mg QAM PO Last administered on 10/03/17 13: 12; Admin Dose 30 MG; Start 10/03/17 at 09:00 Magnesium Oxide (Mag-Ox 400) 400 mg DAILY PO Last administered on 10/03/17 13 :14; Admin Dose 400 MG; Start 10/03/17 at 09:00 Ranolazine (Ranexa) 500 mg BID PO Last administered on 10/03/17 22:31; Admin Dose 500 MG; Start 10/02/17 at 11:00 Senna (Senokot) 1 tab BID PO Last administered on 10/03/17 21:29; Admin Dose 1 TAB; Start 10/02/17 at 21:00 Tamsulosin HCl (Flomax) 0.4 mg HS PO Last administered on 10/03/17 21:29; Admin Dose 0.4 MG; Start 10/02/17 at 21:00 Amlodipine Besylate (Norvasc) 10 mg DAILY PO Last administered on 10/03/17 13 :15; Admin Dose 10 MG; Start 10/03/17 at 09:00 Cholecalciferol (Vitamin D) 2,000 unit DAILY PO ; Start 10/04/17 at 09:00 Acetaminophen/ Hydrocodone Bitart ([place] (10/325)) 1 tab Q4H PRN PO PAIN LEVEL 8-10; Start 10/03/17 at 11:00 Acetaminophen/ Hydrocodone Bitart 1 tab 1 tab Q4H PRN PO PAIN LEVEL 1-5 Last administered on 10/04/17 05:52; Admin Dose 1 TAB; Start 10/03/17 at 11:00; Stop 10/06/17 at 10:59 Clindamycin HCl/ Dextrose 50 ml @ 50 mls/hr Q6 IVPB Last administered on 05:49; Admin Dose 50 MLS/HR; Start 10/03/17 at 18:00; Stop 10/05/17 at 12 :59 Sodium Chloride (NS) 1,000 ml @ 75 mls/hr [id number] IV ; Start 10/04/17 at 08:00 ADIEL SOLO NP Oct 04, 2017 09:35
[2017-10-04] MEDS: TICAGRELOR 90 MG TABLET PO SCH ×2 (12:00→20:45)
--- NOTE | 2017-10-04 15:49 | CONS ---
Date/Time of Note Date/Time of Note DATE: 10/04/17 TIME: 15:49 Consult Date/Type/Reason Admit Date/Time Oct 02, 2017 at 00:34 Type of Consultation: cardiology Subjective cardiology follow up note: S: D/W STAFF and son pt with no chest pain or pressure. no leg pain now s/p hip surgery 10/03/17 General: no acute distress O: HEENT: NC/AT. pupils are equal. round. NECK: NO JVD. no stridor. CV: RRR. systolic murmur; no gallop or rubs. PULM: no wheezing or rhonchi. GI: SOFT, NT, ND, no rebound or guarding Extremity: trace B/L LE edema. no clubbing. s/p left leg surgery neuro: awake and alert, OX3. Psych: calm and pleasant rectal: deferred : normal male Objective Vital Signs Date Time Temp Pulse Resp B/P Pulse Ox O2 Delivery O2 Flow Rate FiO2 10/04/17 08:30 99.0 96 18 90/55 96 10/04/17 05:57 Room Air 10/03/17 11:30 2.0 Intake and Output 10/03/17 10/03/17 10/04/17 14:59 22:59 06:59 Intake Total 1080 ml 750 ml 1350 ml Output Total 670 ml 500 ml 900 ml Balance 410 ml 250 ml 450 ml Results/Medications Result Diagram: 10/04/17 04410/04/172 Results 24 hrs Laboratory Tests Test 10/04/17 04:42 White Blood Count 8.0 Red Blood Count 3.63 L Hemoglobin 10.5 L Hematocrit 33.0 L Mean Corpuscular Volume 90.9 Mean Corpuscular Hemoglobin 28.9 L Mean Corpuscular Hemoglobin Concent 31.8 L Red Cell Distribution Width 15.0 H Platelet Count 170 Mean Platelet Volume 9.7 Neutrophils % 67.9 Lymphocytes % 13.8 L Monocytes % 13.5 H Eosinophils % 3.5 Basophils % 0.2 Nucleated Red Blood Cells % 0.0 Neutrophils # 5.4 Lymphocytes # 1.1 Monocytes # 1.1 H Eosinophils # 0.3 Basophils # 0.0 Nucleated Red Blood Cells # 0.0 Sodium Level 135 Potassium Level 4.8 Chloride Level 105 Carbon Dioxide Level 21 Anion Gap 14 Blood Urea Nitrogen 36 H Creatinine 3.13 H Glucose Level 126 Calcium Level 7.9 L Phosphorus Level 4.3 Magnesium Level 1.8 Albumin 2.9 L Medications Current Medications Morphine Sulfate (morphine) 3 mg Q4H PRN IV PAIN Last administered on 00:56; Admin Dose 3 MG; Start 10/02/17 at 03:00 Hydralazine HCl (Apresoline) 10 mg Q4H PRN IV ELEVATED BLOOD PRESSURE Last administered on 10/02/17 11:59; Admin Dose 10 MG; Start 10/02/17 at 03:00 Allopurinol (Zyloprim) 300 mg DAILY PO Last administered on 10/04/17 09:01; Admin Dose 300 MG; Start 10/03/17 at 09:00 Atorvastatin Calcium (Lipitor) 40 mg DAILY@21 PO Last administered on 21:29; Admin Dose 40 MG; Start 10/02/17 at 21:00 Carvedilol (Coreg) 3.125 mg BID PO Last administered on 10/03/17 13:13; Admin Dose 3.125 MG; Start 10/02/17 at 21:00 Famotidine (Pepcid) 20 mg DAILY PO Last administered on 10/04/17 08:55; Admin Dose 20 MG; Start 10/03/17 at 09:00 Isosorbide Mononitrate (Imdur) 30 mg QAM PO Last administered on 10/03/17 13: 12; Admin Dose 30 MG; Start 10/03/17 at 09:00 Magnesium Oxide (Mag-Ox 400) 400 mg DAILY PO Last administered on 10/04/17 08 :55; Admin Dose 400 MG; Start 10/03/17 at 09:00 Ranolazine (Ranexa) 500 mg BID PO Last administered on 10/04/17 08:52; Admin Dose 500 MG; Start 10/02/17 at 11:00 Senna (Senokot) 1 tab BID PO Last administered on 10/04/17 08:55; Admin Dose 1 TAB; Start 10/02/17 at 21:00 Tamsulosin HCl (Flomax) 0.4 mg HS PO Last administered on 10/03/17 21:29; Admin Dose 0.4 MG; Start 10/02/17 at 21:00 Amlodipine Besylate (Norvasc) 10 mg DAILY PO Last administered on 10/03/17 13 :15; Admin Dose 10 MG; Start 10/03/17 at 09:00 Cholecalciferol (Vitamin D) 2,000 unit DAILY PO Last administered on 08:55; Admin Dose 2,000 UNIT; Start 10/04/17 at 09:00 Acetaminophen/ Hydrocodone Bitart ([place] (10/325)) 1 tab Q4H PRN PO PAIN LEVEL 8-10; Start 10/03/17 at 11:00 Acetaminophen/ Hydrocodone Bitart 1 tab 1 tab Q4H PRN PO PAIN LEVEL 1-5 Last administered on 10/04/17 05:52; Admin Dose 1 TAB; Start 10/03/17 at 11:00; Stop 10/06/17 at 10:59 Clindamycin HCl/ Dextrose 50 ml @ 50 mls/hr Q6 IVPB Last administered on 11:58; Admin Dose 50 MLS/HR; Start 10/03/17 at 18:00; Stop 10/05/17 at 12 :59 Sodium Chloride (NS) 1,000 ml @ 75 mls/hr [id number] IV Last administered on 09:03; Admin Dose 75 MLS/HR; Start 10/04/17 at 08:00 Ticagrelor (Brilinta) 90 mg Q12 PO Last administered on 10/04/17 12:00; Admin Dose 90 MG; Start 10/04/17 at 09:30 Aspirin (Aspirin) 81 mg BID PO ; Start 10/04/17 at 21:00 Lactulose (Enulose) 20 gm BID PRN PO CONSTIPATION; Start 10/04/17 at 21:00 Assessment/Plan Chief Complaint/Hosp Course 1. hip fracture: s/p surgery 2. CAD 3. HX [place] 4. HX P CI 5. CKD 6/ Dyslipidemia cont ASA cont betablocker but will stop norvasc due to hypotension post op care DVT prophylaxis as per IM ANH CARRERA MD [facility] Problems: ANH CARRERA MD Oct 04, 2017 15:49
[2017-10-04 20:00] VITALS: BP 122/60; PULSE 80; RESP 18
[2017-10-04] MEDS: ATORVASTATIN 40 MG TAB PO SCH (20:45)
[2017-10-04] MEDS: TAMSULOSIN (SR) 0.4 MG CAP PO SCH (20:45)
[2017-10-04] MEDS ORDERED: LACTULOSE 30ML CUP PO PRN (21:00)
[2017-10-05 05:18] LABS: BASOPHILS % 0.4 % (0.0-2.0); EOSINOPHILS # 0.3 10^3/ul (0.0-0.5); EOSINOPHILS % 3.2 % (0.0-7.0); HEMOGLOBIN 10.1 g/dl (14.0-18.0); LYMPHOCYTES # 0.7 10^3/ul (0.8-2.9); MEAN CORPUSCULAR HEMOGLOBIN 28.8 pg (29.0-33.0); MEAN CORPUSCULAR HGB CONC 31.6 g/dl (32.0-37.0); MEAN CORPUSCULAR VOLUME 91.2 fl (82.0-101.0); MEAN PLATELET VOLUME 9.7 fl (7.4-10.4); MONOCYTES % 12.3 % (0.0-11.0); NEUTROPHIL # 5.8 10^3/ul (1.6-7.5); NEUTROPHILS % 73.9 % (39.0-77.0); PLATELET COUNT 169 10^3/UL (140-415); RED BLOOD COUNT 3.51 10^6/ul (4.70-6.10); RED CELL DISTRIBUTION WIDTH 14.9 % (11.5-14.5); WHITE BLOOD COUNT 7.8 10^3/ul (4.8-10.8)
[2017-10-05] MEDS: CLINDAMYCIN 600 MG/D5W (PMX) 50 ML IVPB SCH ×2 (05:21→11:11)
[2017-10-05 05:49] LABS: CALCIUM 7.7 mg/dl (8.4-10.2); CREATININE 3.56 mg/dl (0.61-1.24); MAGNESIUM 2.2 mg/dl (1.7-2.5); POTASSIUM 4.7 mmol/L (3.5-5.1)
--- NOTE | 2017-10-05 07:26 | RADRPT ---
PROCEDURE: XR Hip. CLINICAL INDICATION: Postoperative left hip. TECHNIQUE: AP and cross-table lateral views of the left hip and femur were provided. COMPARISON: 10/03/2017. FINDINGS: ORIF changes of the left hip with intramedullary sujatha and interlocking screw traversing an intertroch anteric fracture with anatomic alignment maintained. Second surgical screw is located within the dis arnie femur. Soft tissue edema, subcutaneous emphysema overlying skin neela are present. IMPRESSION: 1. ORIF changes of the left hip with intramedullary sujatha and interlocking screw traversing an intert rochanteric fracture with anatomic alignment maintained. RPTAT: HRSR Physician Lanie Date Time Electronically viewed and signed by Physician Lanie on 10/05/2017 07:26 RR/
--- NOTE | 2017-10-05 07:27 | RADRPT ---
PROCEDURE: Left hip series CLINICAL INDICATION: Postoperative evaluation TECHNIQUE: AP and frog-leg lateral left hip series COMPARISON: 10/03/2017 left hip x-rays and 10/02/2017 CT FINDINGS: The patient is status post left femoral sujatha and pin placement traversing a comminuted left femoral i ntertrochanteric fracture. Gross anatomic alignment of fracture fragments and intact hardware is not ed. A Caldwell catheter is noted superimposed over the soft tissues of the pelvis. IMPRESSION: 1. Status post open reduction internal fixation of left comminuted femoral intertrochanteric fractu re with postsurgical changes, intact hardware and gross anatomic alignment. 2. Caldwell catheter superimposed over pelvic soft tissues RPTAT: HDC .Sabina Green MD, MD Date Time Electronically viewed and signed by .Sabina Green MD, on 10/05/2017 07:27 .C/
[2017-10-05 07:45] VITALS: BP 100/58; RESP 20
--- NOTE | 2017-10-05 08:28 | CONS ---
Date/Time of Note Date/Time of Note DATE: 10/05/17 TIME: 08:27 Consult Date/Type/Reason Admit Date/Time Oct 02, 2017 at 00:34 Type of Consultation: cardiology Subjective cardiology follow up note: S: D/W STAFF and Dr Rod pt with no chest pain or pressure. mild leg pain now s/p hip surgery 10/03/17 General: no acute distress O: HEENT: NC/AT. pupils are equal. round. NECK: NO JVD. no stridor. CV: RRR. systolic murmur; no gallop or rubs. PULM: no wheezing or rhonchi. GI: SOFT, NT, ND, no rebound or guarding Extremity: trace B/L LE edema. no clubbing. s/p left leg surgery neuro: awake and alert, OX3. Psych: calm and pleasant rectal: deferred : normal male Objective Vital Signs Date Time Temp Pulse Resp B/P Pulse Ox O2 Delivery O2 Flow Rate FiO2 10/05/17 07:45 98.3 78 20 100/58 96 10/04/17 20:00 Room Air 10/03/17 11:30 2.0 Intake and Output 10/04/17 10/04/17 10/05/17 15:00 23:00 07:00 Intake Total 50 ml 1550 ml 1700 ml Output Total 1200 ml 1500 ml Balance 50 ml 350 ml 200 ml Results/Medications Result Diagram: 10/05/17 0449 10/05/17 0449 Results 24 hrs Laboratory Tests Test 10/05/17 04:49 White Blood Count 7.8 Red Blood Count 3.51 L Hemoglobin 10.1 L Hematocrit 32.0 L Mean Corpuscular Volume 91.2 Mean Corpuscular Hemoglobin 28.8 L Mean Corpuscular Hemoglobin Concent 31.6 L Red Cell Distribution Width 14.9 H Platelet Count 169 Mean Platelet Volume 9.7 Neutrophils % 73.9 Lymphocytes % 9.0 L Monocytes % 12.3 H Eosinophils % 3.2 Basophils % 0.4 Nucleated Red Blood Cells % 0.0 Neutrophils # 5.8 Lymphocytes # 0.7 L Monocytes # 1.0 H Eosinophils # 0.3 Basophils # 0.0 Nucleated Red Blood Cells # 0.0 Sodium Level 139 Potassium Level 4.7 Chloride Level 108 Carbon Dioxide Level 20 L Anion Gap 16 Blood Urea Nitrogen 40 H Creatinine 3.56 H Glucose Level 105 Calcium Level 7.7 L Magnesium Level 2.2 Medications Current Medications Morphine Sulfate (morphine) 3 mg Q4H PRN IV PAIN Last administered on 00:56; Admin Dose 3 MG; Start 10/02/17 at 03:00 Hydralazine HCl (Apresoline) 10 mg Q4H PRN IV ELEVATED BLOOD PRESSURE Last administered on 10/02/17 11:59; Admin Dose 10 MG; Start 10/02/17 at 03:00 Allopurinol (Zyloprim) 300 mg DAILY PO Last administered on 10/04/17 09:01; Admin Dose 300 MG; Start 10/03/17 at 09:00 Atorvastatin Calcium (Lipitor) 40 mg DAILY@21 PO Last administered on 20:45; Admin Dose 40 MG; Start 10/02/17 at 21:00 Carvedilol (Coreg) 3.125 mg BID PO Last administered on 10/04/17 20:45; Admin Dose 3.125 MG; Start 10/02/17 at 21:00 Famotidine (Pepcid) 20 mg DAILY PO Last administered on 10/04/17 08:55; Admin Dose 20 MG; Start 10/03/17 at 09:00 Isosorbide Mononitrate (Imdur) 30 mg QAM PO Last administered on 10/03/17 13: 12; Admin Dose 30 MG; Start 10/03/17 at 09:00 Magnesium Oxide (Mag-Ox 400) 400 mg DAILY PO Last administered on 10/04/17 08 :55; Admin Dose 400 MG; Start 10/03/17 at 09:00 Ranolazine (Ranexa) 500 mg BID PO Last administered on 10/04/17 20:45; Admin Dose 500 MG; Start 10/02/17 at 11:00 Senna (Senokot) 1 tab BID PO Last administered on 10/04/17 20:45; Admin Dose 1 TAB; Start 10/02/17 at 21:00 Tamsulosin HCl (Flomax) 0.4 mg HS PO Last administered on 10/04/17 20:45; Admin Dose 0.4 MG; Start 10/02/17 at 21:00 Cholecalciferol (Vitamin D) 2,000 unit DAILY PO Last administered on 08:55; Admin Dose 2,000 UNIT; Start 10/04/17 at 09:00 Acetaminophen/ Hydrocodone Bitart ([place] (10/325)) 1 tab Q4H PRN PO PAIN LEVEL 8-10; Start 10/03/17 at 11:00 Acetaminophen/ Hydrocodone Bitart 1 tab 1 tab Q4H PRN PO PAIN LEVEL 1-5 Last administered on 10/04/17 05:52; Admin Dose 1 TAB; Start 10/03/17 at 11:00; Stop 10/06/17 at 10:59 Clindamycin HCl/ Dextrose 50 ml @ 50 mls/hr Q6 IVPB Last administered on 05:21; Admin Dose 50 MLS/HR; Start 10/03/17 at 18:00; Stop 10/05/17 at 12 :59 Sodium Chloride (NS) 1,000 ml @ 75 mls/hr [id number] IV Last administered on 23:45; Admin Dose 75 MLS/HR; Start 10/04/17 at 08:00 Ticagrelor (Brilinta) 90 mg Q12 PO Last administered on 10/04/17 20:45; Admin Dose 90 MG; Start 10/04/17 at 09:30 Aspirin (Aspirin) 81 mg BID PO Last administered on 10/04/17 20:42; Admin Dose 81 MG; Start 10/04/17 at 21:00 Lactulose (Enulose) 20 gm BID PRN PO CONSTIPATION; Start 10/04/17 at 21:00 Simethicone (Mylicon) 80 mg Q6H PRN PO DISTENSION/GAS/BLOATING Last administered on 10/04/17 22:18; Admin Dose 80 MG; Start 10/04/17 at 22:30 Assessment/Plan Chief Complaint/Hosp Course 1. hip fracture: s/p surgery 2. CAD 3. HX [place] 4. HX P CI 5. acute on CKD 6/ Dyslipidemia cont ASA cont betablocker but but off of norvasc due to hypotension post op care DVT prophylaxis as per IM I have asked Dr Rod who knows patient well to evaluate for worsening renal fx. ANH CARRERA MD [facility] Problems: ANH CARRERA MD Oct 05, 2017 08:28
--- NOTE | 2017-10-05 09:32 | PN ---
Date/Time of Note Date/Time of Note DATE: 10/05/17 TIME: 09:31 Assessment/Plan VTE Prophylaxis VTE Prophylaxis Intervention: other Lines/Catheters IV Catheter Type (from Nrsg): Peripheral IV Urinary Cath still in place: Yes Reason Cath still needed: other (indicate) (postop) Assessment/Plan Assessment/Plan 1. CKD Stage IV: Proteinuric with recent baseline around 2.5 mg/dL with an eGFR of approximately 25% by MDRD secondary to hypertensive nephrosclerosis with a history of NSAID use. Now with post-op JONO, suspect some ischemic ATN as well from hypotension. Non oliguric with normal electrolytes. BP meds on hold. No significant improvement with IVF, taking good PO so will d/c and follow. 2. CAD: History of CAD with multiple stents and cardiac cath at [facility] within past year. Cardiology colleagues on board, appreciate their input. 3. HTN: Now with some post-op hypotension, asymptomatic. BP meds on hold. No improvement with IVF. Will follow off of antihypertensives. If can tolerate , will get orthostatics and restart IVF as needed. Appears euvolemic. 4. History of gout: On allopurinol. No recent flares. Will check uric acid level. 5. BPH: On tamsulosin. No voiding issues at present. Rojas in place, can likely d/c today. 6. Vitamin D deficiency: PTH and vitamin D are pending. On oral vitamin D. Corrected calcium is normal. 7. Anemia: Mild at baseline. History of normal iron studies normal. Post-op anemia noted. No need for CARLOS at present. Will follow and transfuse PRN. 8. L Hip Fx: After mechanical fall. S/p L-hip cephalomedullary nailing . Management per Ortho. D/w patient and RN. Subjective 24 Hr Interval Summary Free Text/Dictation Seen for JONO/CKD4. No acute events. Seen ambulating with walker. Feels better , still with some mild pain. No complaints. Labs/meds reviewed. Constitutional: no complaints ENT: no complaints Respiratory: no complaints Cardiovascular: no complaints Gastrointestinal: no complaints Genitourinary: no complaints, other (rojas in place) Musculoskeletal: other (some hip pain, mild, but ambulating with walker) Skin: no complaints Neurologic: no complaints Endocrine: no complaints Exam/Review of Systems Vital Signs Vitals Vital Signs Date Time Temp Pulse Resp B/P Pulse Ox O2 Delivery O2 Flow Rate FiO2 10/05/17 07:45 98.3 78 20 100/58 96 10/04/17 20:00 Room Air 10/03/17 11:30 2.0 Intake and Output 10/04/17 10/04/17 10/05/17 14:59 22:59 06:59 Intake Total 50 ml 1550 ml 1700 ml Output Total 1200 ml 1500 ml Balance 50 ml 350 ml 200 ml Exam Constitutional: alert, oriented, well developed Psych: nl mood/affect Head: atraumatic, normocephalic Eyes: nl conjunctiva ENMT: mucosa pink and moist Neck: other (no jvd) Respiratory: clear to auscultation, normal air movement Cardiovascular: other (no edema), regular rate and rhythm Gastrointestinal: bowel sounds, non-tender Musculoskeletal: nl extremities to inspection Neurological: nl mental status, nl speech Skin: nl turgor Results Result Diagram: 10/05/1744810/05/17448 Results 24 hrs Laboratory Tests Test 10/05/17 04:49 White Blood Count 7.8 Red Blood Count 3.51 L Hemoglobin 10.1 L Hematocrit 32.0 L Mean Corpuscular Volume 91.2 Mean Corpuscular Hemoglobin 28.8 L Mean Corpuscular Hemoglobin Concent 31.6 L Red Cell Distribution Width 14.9 H Platelet Count 169 Mean Platelet Volume 9.7 Neutrophils % 73.9 Lymphocytes % 9.0 L Monocytes % 12.3 H Eosinophils % 3.2 Basophils % 0.4 Nucleated Red Blood Cells % 0.0 Neutrophils # 5.8 Lymphocytes # 0.7 L Monocytes # 1.0 H Eosinophils # 0.3 Basophils # 0.0 Nucleated Red Blood Cells # 0.0 Sodium Level 139 Potassium Level 4.7 Chloride Level 108 Carbon Dioxide Level 20 L Anion Gap 16 Blood Urea Nitrogen 40 H Creatinine 3.56 H Glucose Level 105 Calcium Level 7.7 L Magnesium Level 2.2 Medications Medications Current Medications Morphine Sulfate (morphine) 3 mg Q4H PRN IV PAIN Last administered on 00:56; Admin Dose 3 MG; Start 10/02/17 at 03:00 Hydralazine HCl (Apresoline) 10 mg Q4H PRN IV ELEVATED BLOOD PRESSURE Last administered on 10/02/17 11:59; Admin Dose 10 MG; Start 10/02/17 at 03:00 Allopurinol (Zyloprim) 300 mg DAILY PO Last administered on 10/04/17 09:01; Admin Dose 300 MG; Start 10/03/17 at 09:00 Atorvastatin Calcium (Lipitor) 40 mg DAILY@21 PO Last administered on 20:45; Admin Dose 40 MG; Start 10/02/17 at 21:00 Carvedilol (Coreg) 3.125 mg BID PO Last administered on 10/04/17 20:45; Admin Dose 3.125 MG; Start 10/02/17 at 21:00 Famotidine (Pepcid) 20 mg DAILY PO Last administered on 10/04/17 08:55; Admin Dose 20 MG; Start 10/03/17 at 09:00 Isosorbide Mononitrate (Imdur) 30 mg QAM PO Last administered on 10/03/17 13: 12; Admin Dose 30 MG; Start 10/03/17 at 09:00 Magnesium Oxide (Mag-Ox 400) 400 mg DAILY PO Last administered on 10/04/17 08 :55; Admin Dose 400 MG; Start 10/03/17 at 09:00 Ranolazine (Ranexa) 500 mg BID PO Last administered on 10/04/17 20:45; Admin Dose 500 MG; Start 10/02/17 at 11:00 Senna (Senokot) 1 tab BID PO Last administered on 10/04/17 20:45; Admin Dose 1 TAB; Start 10/02/17 at 21:00 Tamsulosin HCl (Flomax) 0.4 mg HS PO Last administered on 10/04/17 20:45; Admin Dose 0.4 MG; Start 10/02/17 at 21:00 Cholecalciferol (Vitamin D) 2,000 unit DAILY PO Last administered on 08:55; Admin Dose 2,000 UNIT; Start 10/04/17 at 09:00 Acetaminophen/ Hydrocodone Bitart ([place] (10/325)) 1 tab Q4H PRN PO PAIN LEVEL 8-10; Start 10/03/17 at 11:00 Acetaminophen/ Hydrocodone Bitart 1 tab 1 tab Q4H PRN PO PAIN LEVEL 1-5 Last administered on 10/04/17 05:52; Admin Dose 1 TAB; Start 10/03/17 at 11:00; Stop 10/06/17 at 10:59 Clindamycin HCl/ Dextrose 50 ml @ 50 mls/hr Q6 IVPB Last administered on 05:21; Admin Dose 50 MLS/HR; Start 10/03/17 at 18:00; Stop 10/05/17 at 12 :59 Sodium Chloride (NS) 1,000 ml @ 75 mls/hr [id number] IV Last administered on 23:45; Admin Dose 75 MLS/HR; Start 10/04/17 at 08:00 Ticagrelor (Brilinta) 90 mg Q12 PO Last administered on 10/04/17 20:45; Admin Dose 90 MG; Start 10/04/17 at 09:30 Aspirin (Aspirin) 81 mg BID PO Last administered on 10/04/17 20:42; Admin Dose 81 MG; Start 10/04/17 at 21:00 Lactulose (Enulose) 20 gm BID PRN PO CONSTIPATION; Start 10/04/17 at 21:00 Simethicone (Mylicon) 80 mg Q6H PRN PO DISTENSION/GAS/BLOATING Last administered on 10/04/17 22:18; Admin Dose 80 MG; Start 10/04/17 at 22:30 ROGERS MCDONALD Oct 05, 2017 09:32
--- NOTE | 2017-10-05 09:35 | CONS ---
DATE OF ADMISSION: 10/02/2017 DATE OF CONSULTATION: 10/05/2017 TYPE OF CONSULTATION: Nephrology REQUESTING PHYSICIAN: Dr. Barragan. REASON FOR CONSULTATION: Acute kidney injury. HISTORY OF PRESENT ILLNESS: This is a 67-year-old male with a past medical history of chronic kidne y disease stage IIIB/IV with a previous baseline creatinine around 2.5 to 2.9 mg/dL, history of coni nary artery disease status post PCI, history of hypertension, BPH, history of gout who presented to [facility] following a mechanical fall with left hip fracture. The patient underw ent surgical correction by orthopedist, . The patient postoperatively has been receiving p hysical therapy and pain control. The patient had no other acute complications noted. In terms of the patient's renal history, the patient as stated above has underlying CKD stage IV wit h previous baseline creatinine around 2.5 and 2.9 mg/dL. The patient's renal function during the la 48 hours has declined. His creatinine has increased to 3.56 mg/dL. During this time, the patien t was noted to be hypotensive with systolic pressures at times in the 90s. The patient has denied a ny hemoptysis, hematemesis, hematochezia. PAST MEDICAL HISTORY: As stated above, history of hypertension, history of CKD, history of dyslipid emia, history of coronary artery disease, history of BPH. PAST SURGICAL HISTORY: Status post PCI, status post ORIF. FAMILY HISTORY: Noncontributory. SOCIAL HISTORY: Does not drink, smoke or do drugs. MEDICATIONS: Reviewed. ALLERGIES: PENICILLIN. REVIEW OF SYSTEMS: A 14-point review of systems was conducted. Pertinent positives stated in HPI, otherwise negative. PHYSICAL EXAMINATION: VITAL SIGNS: Blood pressure is 99/76, respirations 16, pulse 78, temperature 98.7. HEENT: Head is normocephalic. NECK: Supple. HEART: Regular rate. LUNGS: Show diminished breath sounds at base. ABDOMEN: Soft, nontender to palpation without rebound or guarding. EXTREMITIES: Negative for clubbing, cyanosis, no edema. DERMATOLOGIC: No rashes. MUSCULOSKELETAL: The patient has dressing over her hip, clean, dry, intact. NEUROLOGIC: No obvious focal deficits. LABORATORY DATA: Shows a sodium 139, potassium 4.7, bicarbonate 20, BUN 40, creatinine 3.56. White count 7.8, hemoglobin 10.1, hematocrit 32.0, platelet count of 169. Urinalysis from 10/02 was revi ewed, positive RBCs and positive protein. ASSESSMENT AND PLAN: This is a 67-year-old male who presents with: 1. Nonoliguric acute kidney injury on top of chronic kidney disease stage IV with a previous baseli ne creatinine of 2.5 to 3.0 mg/dL. Etiology of acute kidney injury is likely secondary to hemodynam ics with possible tubular injury due to hemodynamic fluctuations. The patient is noted to have been hypotensive in the last 48 hours. Additionally, the patient also had surgery during this time. Th e plan at this point would be to check a UA with microanalysis. Will check urine electrolytes. Wou ld recommend to monitor blood pressure closely, avoid hypotensive episodes, maintaining above 65, bu t otherwise continue supportive care, renally dose all medications, avoid nephrotoxins. 2. Metabolic acidosis secondary to acute kidney injury and chronic kidney disease. Continue to mon itor. 3. Anemia. Monitor hemoglobin and hematocrit levels. 4. Mineral bone disorder. Continue to monitor calcium and phosphorus levels. 5. Hip fracture status post open reduction internal fixation. Continue current medical management, continue pain control. 6. Coronary artery disease. Continue current medical management. 7. Dyslipidemia. Continue statin therapy. 8. History of gout, continue allopurinol. Thank you, Dr. Barragan and , for this interesting consult. I believe it will be a pleasure to follow the patient with you throughout the hospital course. Dictated By: BENNETT LYNN DO NR/NTS Conf#: [id number] DID#: [id number] CC: ANH BARRAGAN MD; MEDINA MEJIA MD;*EndCC*
--- NOTE | 2017-10-05 09:57 | PDOCDIS ---
Discharge Instructions CONDITION Patient Condition: Stable HOME CARE INSTRUCTIONS: Diet Instructions: Low Fat /Cholesterol FOLLOW UP/APPOINTMENTS Follow-up Plan Postoperative follow-up with in 2 weeks Patient to continue aspirin 81 mg p.o. twice daily 6 weeks and then resume 81 mg daily. ADIEL SOLO NP Oct 05, 2017 09:57
[2017-10-05] MEDS ORDERED: HYDR-3498 PO (09:59)
[2017-10-05] MEDS ORDERED: LACT20SO2 PO (09:59)
[2017-10-05] MEDS ORDERED: ASPI81TA3 PO (09:59)
--- NOTE | 2017-10-05 10:07 | DS ---
Date/Time of Note Date/Time of Note DATE: 10/05/17 TIME: 10:04 Discharge Summary Admission/Discharge Info Admit Date/Time Oct 02, 2017 at 00:34 Discharge Date/Time Discharge Diagnosis 1. Mechanical fall with left closed displaced femoral neck fracture. Status post Left hip cephalomedullary nailing -10/03/2017. 2. Coronary artery disease with multiple PCI with multiple stents. 3. CKD, Stage IV.Baseline creatinine 2.5-2.9. 4. Hypertension 5. Gout 6. BPH 7. Vitamin D deficiency. 8. Constipation. Patient Condition: Stable Consults /, nephrology ,Cardiology ,Orthopedics Procedures 10/01/2017. Left hip x-ray. Fractures at the neck base and intertrochanteric left hip with varus angulation of the distal fragment. 10/03/2017. Left hip cephalomedullary nailing by Hx of Present Illness This is a 67-year-old male who was history of CAD with stent, CKD, hypertension , dyslipidemia, gout, BPH who presents to the ER complaining of left hip pain status post fall. He said he was working on a door at his home and while transporting the door he had a mechanical fall and fell on the left side of his body injuring his hip. He was unable to get up on his own. He denied chest pain, shortness of breath, palpitations, dizziness before or after the fall. When he presented to the ER, he was found to have Intertrochanteric fracture of the left hip Hospital Course This is a 67-year-old male with a past medical history of coronary artery disease, multiple stents placed, hypertension, chronic kidney disease stage IV, vitamin D deficiency, gout, BPH, constipation, who apparently fell and came in with left hip pain. X-ray revealed left closed displaced basicervical femoral neck fracture with intertrochanteric extension. Patient was admitted. Patient was continued on pain medications. Patient had cardiology and nephrology evaluation. His renal function was monitored closely and remained at baseline. On 10/03/2017, patient had Left hip cephalomedullary nailing by . Patient tolerated procedure well. Postoperatively, patient was continued on physical therapy. Patient had borderline hypotension, for which amlodipine was discontinued and he was continued on other antihypertensives. He continued to require further complex physical therapy and therefore patient was accepted to [facility] acute rehabilitation unit for further complex interdisciplinary rehab activities. As per orthopedic recommendation, patient to continue aspirin 81 mg twice daily along with continuation of Brilinta to prevent any thrombotic events. On day of discharge , patient's creatinine went up to 3.5, for which as per nephrology, they will continue to monitor patient in acute rehabilitation unit. It is possibly that his renal function could worsen secondary to postoperative hemodynamics and patient is medically stable for discharge to rehab and nephrology will continue to see patient in rehab. Disposition: Discharge patient to acute rehabilitation unit for further physical therapy. Approximately 60 minutes was spent on coordinate in the discharge on this patient. Patient was seen in collaboration with Dr. Horan. Parker Meds Active Scripts Tamsulosin Hcl* (Flomax*) 0.4 Mg Cap.er.24h, 0.4 MG PO HS, #30 CAP Prov:ADIEL SOLO V. LEATHER TOGGLER 09/06/17 Atorvastatin* (Atorvastatin*) 40 Mg Tablet, 40 MG PO DAILY@21 for 30 Days, TAB 5 Refills Prov:TENA AGUILAR S. 07/21/16 Famotidine* (Famotidine*) 20 Mg Tablet, 20 MG PO DAILY for 30 Days, TAB 3 Refills Prov:TENA AGUILAR S. 07/21/16 Aspirin* (Aspirin* Chew) 81 Mg Tab.chew, 81 MG PO DAILY for 30 Days, TAB.CHEW 8 Refills Prov:TENA AGUILAR S. 07/21/16 Reported Medications Sennosides* (Senna Lax*) 8.6 Mg Tablet, 1 TAB PO BID, TAB 10/01/17 Magnesium Oxide* (Magnesium Oxide*) 400 Mg Tablet, 400 MG PO DAILY, TAB 10/01/17 Amlodipine Besylate* (Amlodipine Besylate*) 2.5 Mg Tablet, 2.5 MG PO DAILY, #30 TAB 09/03/17 Carvedilol* (Carvedilol*) 3.125 Mg Tablet, 3.125 MG PO BID, #60 TAB 09/03/17 Isosorbide Mononitrate* (Isosorbide Mononitrate*) 30 Mg Tab.er.24h, 30 MG PO QAM , TAB 09/03/17 Ticagrelor* (Brilinta*) 90 Mg Tablet, 90 MG PO Q12, TAB 09/03/17 Allopurinol* (Allopurinol*) 300 Mg Tablet, 300 MG PO DAILY, TAB 09/03/17 Ranolazine* (Ranexa*) 500 Mg Tab.sr.12h, 500 MG PO BID, TAB 09/03/17 Follow-up Plan Postoperative follow-up with in 2 weeks Patient to continue aspirin 81 mg p.o. twice daily 6 weeks and then resume 81 mg daily. Primary Care Provider Maria Esther Pop Pending Labs Laboratory Tests Test 10/05/17 04:49 White Blood Count 7.810^3/ul (4.8-10.8) Red Blood Count 3.5110^6/ul (4.70-6.10) Hemoglobin 10.1g/dl (14.0-18.0) Hematocrit 32.0% (42.0-52.0) Mean Corpuscular Volume 91.2fl (82.0-101.0) Mean Corpuscular Hemoglobin 28.8pg (29.0-33.0) Mean Corpuscular Hemoglobin Concent 31.6g/dl (32.0-37.0) Red Cell Distribution Width 14.9% (11.5-14.5) Platelet Count 84458^3/UL (140-415) Mean Platelet Volume 9.7fl (7.4-10.4) Neutrophils % 73.9% (39.0-77.0) Lymphocytes % 9.0% (15.0-51.0) Monocytes % 12.3% (0.0-11.0) Eosinophils % 3.2% (0.0-7.0) Basophils % 0.4% (0.0-2.0) Nucleated Red Blood Cells % 0.0/100WBC (0.0-0.0) Neutrophils # 5.810^3/ul (1.6-7.5) Lymphocytes # 0.710^3/ul (0.8-2.9) Monocytes # 1.010^3/ul (0.3-0.9) Eosinophils # 0.310^3/ul (0.0-0.5) Basophils # 0.010^3/ul (0.0-0.1) Nucleated Red Blood Cells # 0.010^3/ul (0.0-0.0) Sodium Level 139mmol/L (135-144) Potassium Level 4.7mmol/L (3.5-5.1) Chloride Level 108mmol/L (97-110) Carbon Dioxide Level 20mmol/L (21-31) Anion Gap 16 (8-16) Blood Urea Nitrogen 40mg/dl (7-20) Creatinine 3.56mg/dl (0.61-1.24) Glucose Level 105mg/dl (70-220) Calcium Level 7.7mg/dl (8.4-10.2) Magnesium Level 2.2mg/dl (1.7-2.5) ADIEL SOLO NP Oct 05, 2017 10:07
--- NOTE | 2017-10-05 10:10 | PN ---
Date/Time of Note Date/Time of Note DATE: 10/05/17 TIME: 10:07 Assessment/Plan VTE Prophylaxis VTE Prophylaxis Intervention: ambulation Lines/Catheters [facility] IV Urinary Cath still in place: No Assessment/Plan Chief Complaint/Hosp Course 67-year-old male with a past medical history of multiple stents placed in the past with the most recent cath done 6 mos ago at [facility] 1. Mechanical fall with left closed displaced femoral neck fracture. -Status post Left hip cephalomedullary nailing -10/03/2017. -Continue pain medications. Postoperative diet, anticoagulation and weightbearing per surgery. 2. Coronary artery disease with multiple PCI with multiple stents. -Continue aspirin/Brilinta/beta-trinity/statin. 3. CKD, Stage IV.Baseline creatinine 2.5-2.9. Renal function today worsened. -As per nephrology, renal function worsened likely secondary to postoperative hemodynamics. Patient will be followed up by renal. -Avoid nephrotoxins, monitor renal function closely. -Nephrology evaluation appreciated and we will follow-up with recommendations. 4. Hypertension: Stable. -Continue antihypertensives with adjustment as needed 5. Gout -on allopurinol 6. BPH -Continue home meds 7. Vitamin D deficiency. -Continue replacement. 8. Constipation. She had bowel movement on 10/04/2017. -Continue stool softeners, senna and PRN lactulose. DVT prophylaxis: After discussion with orthopedic surgeon, we are going to start patient on aspirin 81 mg twice a day with continuation of Brilinta. Plan: Discontinue Caldwell. Discharge acute rehabilitation unit. Patient to follow-up with nephrology in acute rehabilitation unit. Patient was seen in collaboration with DR. Horan Problems: Subjective 24 Hr Interval Summary Free Text/Dictation Doing well. Ambulating with PT assist. Exam/Review of Systems Vital Signs Vitals Vital Signs Date Time Temp Pulse Resp B/P Pulse Ox O2 Delivery O2 Flow Rate FiO2 10/05/17 07:45 98.3 78 20 100/58 96 10/04/17 20:00 Room Air 10/03/17 11:30 2.0 Intake and Output 10/04/17 10/04/17 10/05/17 14:59 22:59 06:59 Intake Total 50 ml 1550 ml 1700 ml Output Total 1200 ml 1500 ml Balance 50 ml 350 ml 200 ml Exam General: Well developed,adequately built, not in any acute distress . HEENT: Normocephalic, Atraumatic, No laceration or hematoma; Eyes: PEERL, Conjunctiva clear, Anicteric sclera Neck: Supple without any lymphadenopathy, nontender, no JVD, no carotid bruits, trachea midline, no thyromegaly Cardiac: S1, S2 auscultated, regular rhythm and rate, no mumurs or gallop Pulmonary: Normal respiratory effort. Chest clear to auscultation bilaterally, no adventitious breath sounds GI: Protuberant abdomen. With mild distention.. Soft, non tender, no masses, no rebound tenderness or guarding. Bowel sounds active on all four quadrants Genitourinary: Deferred Extremities: Left hip fracture with surgical incision/dressing intact. No cyanosis, clubbing, or edema. Pulses [2+] bilaterally. Full ROM on all four extremities. No focal weakness appreciated. Neurologic: Alert to person, place, time, and situation. Affect appropriate, intact sensation. Skin: Clean,dry, and intact. No ecchymosis, no rashes, or lesions Results Result Diagram: 10/05/179 10/05/179 Results 24 hrs Laboratory Tests Test 10/05/17 04:49 White Blood Count 7.8 Red Blood Count 3.51 L Hemoglobin 10.1 L Hematocrit 32.0 L Mean Corpuscular Volume 91.2 Mean Corpuscular Hemoglobin 28.8 L Mean Corpuscular Hemoglobin Concent 31.6 L Red Cell Distribution Width 14.9 H Platelet Count 169 Mean Platelet Volume 9.7 Neutrophils % 73.9 Lymphocytes % 9.0 L Monocytes % 12.3 H Eosinophils % 3.2 Basophils % 0.4 Nucleated Red Blood Cells % 0.0 Neutrophils # 5.8 Lymphocytes # 0.7 L Monocytes # 1.0 H Eosinophils # 0.3 Basophils # 0.0 Nucleated Red Blood Cells # 0.0 Sodium Level 139 Potassium Level 4.7 Chloride Level 108 Carbon Dioxide Level 20 L Anion Gap 16 Blood Urea Nitrogen 40 H Creatinine 3.56 H Glucose Level 105 Calcium Level 7.7 L Magnesium Level 2.2 Medications Medications Current Medications Morphine Sulfate (morphine) 3 mg Q4H PRN IV PAIN Last administered on t 00:56; Admin Dose 3 MG; Start 10/02/17 at 03:00 Hydralazine HCl (Apresoline) 10 mg Q4H PRN IV ELEVATED BLOOD PRESSURE Last administered on 10/02/17 11:59; Admin Dose 10 MG; Start 10/02/17 at 03:00 Allopurinol (Zyloprim) 300 mg DAILY PO Last administered on 10/04/17 09:01; Admin Dose 300 MG; Start 10/03/17 at 09:00 Atorvastatin Calcium (Lipitor) 40 mg DAILY@21 PO Last administered on 20:45; Admin Dose 40 MG; Start 10/02/17 at 21:00 Carvedilol (Coreg) 3.125 mg BID PO Last administered on 10/04/17 20:45; Admin Dose 3.125 MG; Start 10/02/17 at 21:00 Famotidine (Pepcid) 20 mg DAILY PO Last administered on 10/04/17 08:55; Admin Dose 20 MG; Start 10/03/17 at 09:00 Isosorbide Mononitrate (Imdur) 30 mg QAM PO Last administered on 10/03/17 13: 12; Admin Dose 30 MG; Start 10/03/17 at 09:00 Magnesium Oxide (Mag-Ox 400) 400 mg DAILY PO Last administered on 10/04/17 08 :55; Admin Dose 400 MG; Start 10/03/17 at 09:00 Ranolazine (Ranexa) 500 mg BID PO Last administered on 10/04/17 20:45; Admin Dose 500 MG; Start 10/02/17 at 11:00 Senna (Senokot) 1 tab BID PO Last administered on 10/04/17 20:45; Admin Dose 1 TAB; Start 10/02/17 at 21:00 Tamsulosin HCl (Flomax) 0.4 mg HS PO Last administered on 10/04/17 20:45; Admin Dose 0.4 MG; Start 10/02/17 at 21:00 Cholecalciferol (Vitamin D) 2,000 unit DAILY PO Last administered on 08:55; Admin Dose 2,000 UNIT; Start 10/04/17 at 09:00 Acetaminophen/ Hydrocodone Bitart ([place] (10/325)) 1 tab Q4H PRN PO PAIN LEVEL 8-10; Start 10/03/17 at 11:00 Acetaminophen/ Hydrocodone Bitart 1 tab 1 tab Q4H PRN PO PAIN LEVEL 1-5 Last administered on 10/04/17 05:52; Admin Dose 1 TAB; Start 10/03/17 at 11:00; Stop 10/06/17 at 10:59 Clindamycin HCl/ Dextrose (Cleocin 600 Mg/ D5W (Pmx)) 50 ml @ 50 mls/hr Q6 IVPB Last administered on 10/05/17 05:21; Admin Dose 50 MLS/HR; Start 10/03/17 at 18:00; Stop 10/05/17 at 12:59 Ticagrelor (Brilinta) 90 mg Q12 PO Last administered on 10/04/17 20:45; Admin Dose 90 MG; Start 10/04/17 at 09:30 Aspirin (Aspirin) 81 mg BID PO Last administered on 10/04/17 20:42; Admin Dose 81 MG; Start 10/04/17 at 21:00 Lactulose (Enulose) 20 gm BID PRN PO CONSTIPATION; Start 10/04/17 at 21:00 Simethicone (Mylicon) 80 mg Q6H PRN PO DISTENSION/GAS/BLOATING Last administered on 10/04/17 22:18; Admin Dose 80 MG; Start 10/04/17 at 22:30 ADIEL SOLO NP Oct 05, 2017 10:10
--- NOTE | 2017-10-05 10:57 | PN ---
Date/Time of Note Date/Time of Note DATE: 10/05/17 TIME: 10:55 Assessment/Plan VTE Prophylaxis VTE Prophylaxis Intervention: ambulation, SCD's, other (Aspirin 325 mg) Lines/Catheters IV Catheter Type (from Nrsg): Peripheral IV Caldwell in Place (from Nrsg): No Assessment/Plan Assessment/Plan -Pain Meds as needed -ASA for DVT Prophylaxis x 6 weeks outpatient discussed. -Continue monitoring as outpatient on discharge -Follow-up at scheduled postop outpatient appointment or sooner if there is any issue. -Patient Stable -Discharge to ARU Subjective 24 Hr Interval Summary 67-year-old male postop day 2 status post ORIF for left femoral neck fracture with gamma nailing. No acute events overnight. Denies any pain. Resting comfortably in bed. Continues with physical therapy. Constitutional: no complaints Pain Control: well controlled Exam/Review of Systems Vital Signs Vitals Vital Signs Date Time Temp Pulse Resp B/P Pulse Ox O2 Delivery O2 Flow Rate FiO2 10/05/17 07:45 98.3 78 20 100/58 96 10/04/17 20:00 Room Air 10/03/17 11:30 2.0 Intake and Output 10/04/17 10/04/17 10/05/17 15:00 23:00 07:00 Intake Total 50 ml 1550 ml 1700 ml Output Total 1200 ml 1500 ml Balance 50 ml 350 ml 200 ml Exam Free Text/Dictation -No complications with dressing intact. Ecchymosis to the left buttock region. -Thigh soft -5/5 Quadriceps, Tibialis Anterior, EHL Gastrocnemius/Soleus and Peroneals -Normal Sensation -Palpable DP/PT, Capillary Refill <2 secs -No Distal Edema -Negative Chandu Sign/No calf pain -Toes Freely Movable Constitutional: alert, oriented Results Result Diagram: 10/05/17 0449 10/05/17 0449 JOHN SCHWARTZ PA-C Oct 05, 2017 10:57
[2017-10-05] MEDS: FAMOTIDINE 20 MG TAB PO SCH (11:01)
[2017-10-05] MEDS: SENNA TAB PO SCH (11:01)
[2017-10-05] MEDS: CHOLECALCIFEROL 2,000 UNIT CAP PO SCH (11:01)
[2017-10-05] MEDS: ASPIRIN 81 MG TAB PO SCH (11:01)
[2017-10-05] MEDS: ALLOPURINOL 300 MG TAB PO SCH (11:01)
[2017-10-05] MEDS: TICAGRELOR 90 MG TABLET PO SCH (11:03)
[2017-10-05] MEDS: ISOSORBIDE MONONITRATE(SR)30 MG TAB PO SCH (11:03)
[2017-10-05] MEDS: MAGNESIUM OXIDE 400 MG TAB PO SCH (11:04)
[2017-10-05] MEDS: RANOLAZINE (SR) 500 MG TAB PO SCH (11:11)
[2017-10-05 15:11] VITALS: BP 95/52; RESP 20
[2017-10-05 17:52] LABS: ADD UMIC YES; UR ASCORBIC ACID NEGATIVE (NEGATIVE); UR BILIRUBIN (Dip) NEGATIVE (NEGATIVE); UR BLOOD (Dip) 3+ mg/dL (NEGATIVE); UR CLARITY SLIGHTLY CLOUDY (CLEAR); UR COLOR YELLOW (YELLOW); UR GLUCOSE (Dip) NEGATIVE (NEGATIVE); UR KETONES (Dip) NEGATIVE (NEGATIVE); UR LEUKOCYTE ESTERASE (Dip) 2+ Leu/ul (NEGATIVE); UR MUCUS FEW /HPF (NONE SEEN); UR NITRITE (Dip) NEGATIVE (NEGATIVE); UR RBC 47 /HPF (0-5); UR TOTAL PROTEIN (Dip) 1+ mg/dl (NEGATIVE); UR UROBILINOGEN (Dip) NEGATIVE (NEGATIVE)
[2017-10-05 19:13] VITALS: BP 108/59; RESP 22
[2017-10-07 16:11] LABS: MICROALBUMIN 19.3 mg/dL
== END 2017-10-05 20:55 | DRG 481 ==
LOC: E/R 20:35 → MS1 10-02 00:34
PROVIDERS: ADMIT Internal Medicine; ATTEND Internal Medicine
PROC: 0QS736Z Reposition Left Upper Femur with Intramedullary Internal Fixation Device, Percutaneous Approach (ICD-10-PCS; principal; 2017-10-03 09:00)
DX: S72.142A Displaced intertrochanteric fracture of left femur, initial encounter for closed fracture (principal); N18.4 Chronic kidney disease, stage 4 (severe); N17.9 Acute kidney failure, unspecified; S72.092A Other fracture of head and neck of left femur, initial encounter for closed fracture; I12.9 Hypertensive chronic kidney disease with stage 1 through stage 4 chronic kidney disease, or unspecified chronic kidney disease; I25.10 Atherosclerotic heart disease of native coronary artery without angina pectoris; M10.9 Gout, unspecified; N40.0 Benign prostatic hyperplasia without lower urinary tract symptoms; E78.00 Pure hypercholesterolemia, unspecified; D64.9 Anemia, unspecified; I25.2 Old myocardial infarction; E55.9 Vitamin D deficiency, unspecified; K59.00 Constipation, unspecified; Z95.5 Presence of coronary angioplasty implant and graft; Z79.82 Long term (current) use of aspirin; Z88.0 Allergy status to penicillin; Z79.02 Long term (current) use of antithrombotics/antiplatelets; W01.0XXA Fall on same level from slipping, tripping and stumbling without subsequent striking against object, initial encounter; Y93.H3 Activity, building and construction; Y92.009 Unspecified place in unspecified non-institutional (private) residence as the place of occurrence of the external cause
CPT/HCPCS: 71010; 73510; 73530; 73550; 73700; 80048; 80069; 81001; 81003; 82043; 83735; 84100; 84155; 84300; 85025; 85610; 85730; 86850; 86900; 86901; 87086; 90686; 93005; 96372; 96374; 96375; 97116; 97161; 97530; J0360; J1170; J2270; J7030; J7042

== ENCOUNTER 2017-10-05 19:01 | Inpatient (IN) | payer MEDICARE, OTHER ==
[~2017-10-05] VITALS: Ht 172.7 cm; Wt 79.3 kg
[~2017-10-05 19:01] MED LIST changes: +HYDR-3498 PO; +LACT20SO2 PO; +MAGN400T28 PO; +SENN-53 PO
[2017-10-05 22:00] VITALS: Ht 172.7 cm; Wt 79.3 kg
[2017-10-05] MEDS ORDERED: LACTULOSE 30ML CUP PO PRN (22:00)
[2017-10-05] MEDS ORDERED: HYDROCODONE/APAP (5/325) TAB PO PRN (22:30)
[2017-10-05] MEDS: SENNA TAB PO SCH (22:34)
[2017-10-05] MEDS: ATORVASTATIN 40 MG TAB PO SCH (22:34)
[2017-10-05] MEDS: TAMSULOSIN (SR) 0.4 MG CAP PO SCH (22:35)
[2017-10-05] MEDS: ASPIRIN 81 MG TAB PO SCH (22:35)
[2017-10-05] MEDS ORDERED: BISACODYL 10 MG SUPP PR PRN (23:00)
[2017-10-05] MEDS ORDERED: MAGNESIUM HYDROXIDE 30ML CUP PO PRN (23:00)
[2017-10-05] MEDS ORDERED: ACETAMINOPHEN 325 MG TAB PO PRN (23:00)
[2017-10-06 00:35] LABS: ADD UMIC YES; UR ASCORBIC ACID NEGATIVE (NEGATIVE); UR BACTERIA FEW /HPF (NONE SEEN); UR BILIRUBIN (Dip) NEGATIVE (NEGATIVE); UR BLOOD (Dip) 2+ mg/dL (NEGATIVE); UR CLARITY CLEAR (CLEAR); UR COLOR STRAW (YELLOW); UR GLUCOSE (Dip) NEGATIVE (NEGATIVE); UR KETONES (Dip) NEGATIVE (NEGATIVE); UR LEUKOCYTE ESTERASE (Dip) NEGATIVE Leu/ul (NEGATIVE); UR NITRITE (Dip) NEGATIVE (NEGATIVE); UR RBC 4 /HPF (0-5); UR SPECIFIC GRAVITY (Dip) 1.004 (1.003-1.030); UR TOTAL PROTEIN (Dip) 1+ mg/dl (NEGATIVE); UR UROBILINOGEN (Dip) NEGATIVE (NEGATIVE)
[2017-10-06 02:00] VITALS: BP 127/61; RESP 18
[2017-10-06] MEDS: RANOLAZINE (SR) 500 MG TAB PO SCH ×3 (02:02→21:38)
[2017-10-06] MEDS: TICAGRELOR 90 MG TABLET PO SCH ×3 (02:08→21:43)
[2017-10-06 07:00] VITALS: BP 129/67; RESP 18
[2017-10-06 07:34] LABS: BASOPHILS % 0.7 % (0.0-2.0); EOSINOPHILS # 0.4 10^3/ul (0.0-0.5); HEMATOCRIT 28.9 % (42.0-52.0); HEMOGLOBIN 9.3 g/dl (14.0-18.0); LYMPHOCYTES % 15.8 % (15.0-51.0); MEAN CORPUSCULAR HEMOGLOBIN 29.1 pg (29.0-33.0); MEAN CORPUSCULAR HGB CONC 32.2 g/dl (32.0-37.0); MEAN CORPUSCULAR VOLUME 90.3 fl (82.0-101.0); MEAN PLATELET VOLUME 9.9 fl (7.4-10.4); MONOCYTE # 0.8 10^3/ul (0.3-0.9); MONOCYTES % 12.5 % (0.0-11.0); NEUTROPHIL # 3.8 10^3/ul (1.6-7.5); NEUTROPHILS % 62.8 % (39.0-77.0); PLATELET COUNT 182 10^3/UL (140-415); RED CELL DISTRIBUTION WIDTH 15.2 % (11.5-14.5)
--- NOTE | 2017-10-06 07:45 | CONS ---
Date/Time of Note Date/Time of Note DATE: 10/06/17 TIME: 07:43 Consult Date/Type/Reason Admit Date/Time Oct 05, 2017 at 21:14 Initial Consult Date Type of Consultation: cardiology Subjective cardiology follow up note: S: D/W STAFF pt with no chest pain or pressure. mild leg pain now s/p hip surgery 10/03/17 . now in rehab. O: General: no acute distress HEENT: NC/AT. pupils are equal. round. NECK: NO JVD. no stridor. CV: RRR. systolic murmur; no gallop or rubs. PULM: no wheezing or rhonchi. GI: SOFT, NT, ND, no rebound or guarding Extremity: trace B/L LE edema. no clubbing. s/p left leg surgery neuro: awake and alert, OX3. Psych: calm and pleasant rectal: deferred : normal male Objective Vital Signs Date Time Temp Pulse Resp B/P Pulse Ox O2 Delivery O2 Flow Rate FiO2 10/06/17 02:00 98.5 76 18 127/61 98 Intake and Output 10/05/17 10/05/17 10/06/17 15:00 23:00 07:00 Output Total 500 ml Balance -500 ml Results/Medications Result Diagram: 10/06/1731 Results 24 hrs Laboratory Tests Test 10/05/17 21:30 10/06/17 06:31 Urine Color STRAW Urine Clarity CLEAR Urine pH 6.0 Urine Specific [place] 1.004 Urine Ketones NEGATIVE Urine Nitrite NEGATIVE Urine Bilirubin NEGATIVE Urine Urobilinogen NEGATIVE Urine Leukocyte Esterase NEGATIVE Urine Microscopic RBC 4 Urine Microscopic WBC 4 Urine Bacteria FEW A Urine Hemoglobin 2+ H Urine Glucose NEGATIVE Urine Total Protein 1+ H White Blood Count 6.0 # Red Blood Count 3.20 L Hemoglobin 9.3 L Hematocrit 28.9 L Mean Corpuscular Volume 90.3 Mean Corpuscular Hemoglobin 29.1 Mean Corpuscular Hemoglobin Concent 32.2 Red Cell Distribution Width 15.2 H Platelet Count 182 Mean Platelet Volume 9.9 Neutrophils % 62.8 Lymphocytes % 15.8 Monocytes % 12.5 H Eosinophils % 6.0 Basophils % 0.7 Nucleated Red Blood Cells % 0.0 Neutrophils # 3.8 Lymphocytes # 1.0 Monocytes # 0.8 Eosinophils # 0.4 Basophils # 0.0 Nucleated Red Blood Cells # 0.0 Medications Current Medications Ticagrelor (Brilinta) 90 mg Q12 PO Last administered on 10/06/17 02:08; Admin Dose 90 MG; Start 10/05/17 at 22:00 Ranolazine (Ranexa) 500 mg BID PO Last administered on 10/06/17 02:02; Admin Dose 500 MG; Start 10/05/17 at 22:00 Senna (Senokot) 1 tab BID PO Last administered on 10/05/17 22:34; Admin Dose 1 TAB; Start 10/05/17 at 22:00 Tamsulosin HCl (Flomax) 0.4 mg DAILY@21 PO Last administered on 10/05/17 22: 35; Admin Dose 0.4 MG; Start 10/05/17 at 22:00 Famotidine (Pepcid) 20 mg DAILY PO ; Start 10/06/17 at 09:00 Acetaminophen/ Hydrocodone Bitart ([place] (5/325)) 1 tab Q4H PRN PO PAIN; Start 10/05/17 at 22:30; Stop 10/06/17 at 10:59 Isosorbide Mononitrate (Imdur) 30 mg DAILY PO ; Start 10/06/17 at 09:00 Lactulose (Enulose) 20 gm BID PRN PO CONSTIPATION; Start 10/05/17 at 22:00 Magnesium Oxide (Mag-Ox 400) 400 mg DAILY PO ; Start 10/06/17 at 09:00 Allopurinol (Zyloprim) 300 mg DAILY PO ; Start 10/06/17 at 09:00 Aspirin (Aspirin) 81 mg BID PO Last administered on 10/05/17 22:35; Admin Dose 81 MG; Start 10/05/17 at 22:00; Stop 11/16/17 at 09:01 Aspirin (Aspirin) 81 mg DAILY PO ; Start 11/17/17 at 09:00 Atorvastatin Calcium (Lipitor) 40 mg DAILY@21 PO Last administered on 22:34; Admin Dose 40 MG; Start 10/05/17 at 22:00 Carvedilol (Coreg) 3.125 mg BID PO ; Start 10/05/17 at 22:00 Cholecalciferol (Vitamin D) 2,000 unit DAILY PO ; Start 10/06/17 at 09:00 Docusate Sodium (Colace) 100 mg BID PO ; Start 10/06/17 at 09:00 Magnesium Hydroxide (Milk Of Mag) 30 ml BID PRN PO CONSTIPATION; Start at 23:00 Bisacodyl (Dulcolax Supp) 10 mg DAILY PRN IN CONSTIPATION; Start 10/05/17 at 23:00 Acetaminophen (Tylenol Tab) 650 mg Q4H PRN PO PAIN; Start 10/05/17 at 23:00 Assessment/Plan Chief Complaint/Hosp Course 1. hip fracture: s/p surgery 2. CAD 3. HX [place] 4. HX PCI 5. acute on CKD 6/ Dyslipidemia 7. HTN cont ASA cont betablocker but but off of norvasc due to hypotension post op care DVT prophylaxis as per IM F/U with renal rec. ANH CARRERA MD [facility] Problems: ANH CARRERA MD Oct 06, 2017 07:45
[2017-10-06 07:54] LABS: ALBUMIN 2.7 g/dl (3.3-4.9); ALBUMIN/GLOBULIN RATIO 0.79; BILIRUBIN,INDIRECT 0.5 mg/dl (0-1.1); BILIRUBIN,TOTAL 0.5 mg/dl (0.2-1.3); CALCIUM 8.2 mg/dl (8.4-10.2); CREATININE 3.64 mg/dl (0.61-1.24); POTASSIUM 5.1 mmol/L (3.5-5.1); TOTAL PROTEIN 6.1 g/dl (6.1-8.1)
[2017-10-06] MEDS: FAMOTIDINE 20 MG TAB PO SCH (09:11)
[2017-10-06] MEDS: ISOSORBIDE MONONITRATE(SR)30 MG TAB PO SCH (09:13)
[2017-10-06] MEDS: SENNA TAB PO SCH ×2 (09:13→21:38)
[2017-10-06] MEDS: ASPIRIN 81 MG TAB PO SCH ×2 (09:13→21:38)
[2017-10-06] MEDS: DOCUSATE SODIUM 100 MG CAP PO SCH ×2 (09:13→21:38)
[2017-10-06] MEDS: MAGNESIUM OXIDE 400 MG TAB PO SCH (09:13)
[2017-10-06] MEDS: ALLOPURINOL 300 MG TAB PO SCH (09:13)
[2017-10-06] MEDS: CHOLECALCIFEROL 2,000 UNIT CAP PO SCH (09:14)
--- NOTE | 2017-10-06 12:11 | CONS ---
Date/Time of Note Date/Time of Note DATE: 10/06/17 TIME: 12:11 Assessment/Plan Assessment/Plan Chief Complaint/Hosp Course 67-year-old male with a history of coronary artery disease with multiple stent placed in the past, who is transferred to acute rehabilitation unit for further complex interdisciplinary rehab activities after patient had left hip cephalo- medullary nailing. 1. Mechanical fall with left closed displaced femoral neck fracture. Status post Left hip cephalomedullary nailing -10/03/2017. -Continue PT/OT eval and treatment. -Follow-up with orthopedics in 1-2 weeks. 2. Coronary artery disease with multiple PCI with multiple stents. -Continue aspirin/melena/beta-trinity/nitrates/statin. 3. Acute on CKD, Stage IV.Baseline creatinine 2.5-2.9. Currently his renal function seems worsening. -We will consult patient's advertising writer -Monitor renal function closely. 4. Hypertension: Stable. -Continue antihypertensives with adjustment as needed 5. Gout -on allopurinol 6. BPH -On Flomax 7. Vitamin D deficiency. -Continue replacement. 8. Constipation. Stable. -Continue stool softeners, senna and PRN lactulose. DVT prophylaxis: Aspirin 81 mg twice daily along with Brilinta per orthopedic recommendations. Approximately 60 minutes was spent on this consultation. Patient was seen in collaboration with . Problems: Consultation Date/Type/Reason Admit Date/Time Oct 05, 2017 at 21:14 Reason for Consultation Medical management Hx of Present Illness This is a 67-year-old male with a past medical history of coronary artery disease, status post multiple stent placed, chronic kidney disease stage IV, hyperlipidemia, hypertension, BPH, gout, who apparently fell with resultant left intertrochanteric hip fracture. Patient had undergone left hip cephalo- medullary nailing on 10/03/2017. Patient had a stable postoperative course other than mild hypertension for which, he was discontinued from amlodipine. Patient was closely monitored with his advertising writer for CKD. Patient was then evaluated by physical therapy and recommended further rehabilitation at acute rehabilitation unit and was transferred over here for further complex interdisciplinary rehab activities. Patient denied chest pain, palpitation, shortness of breath, nausea, vomiting, abdominal pain, dizziness or other constitutional symptoms. Labs with hemoglobin 9.3, hematocrit 28.9, BUN 48 and creatinine 3.64. Vital signs within acceptable range. A 12 point review of system was assessed and negative other than what is mentioned in HPI. Past Medical History See HPI Past Surgical History See HPI Past Surgical Hx: angioplasty, other Social History Patient denied any history of alcohol, smoking or illicit drug use. Smoking Status: Never smoker Exam/Review of Systems Vital Signs Vitals Vital Signs Date Time Temp Pulse Resp B/P Pulse Ox O2 Delivery O2 Flow Rate FiO2 10/06/17 07:00 98.6 77 18 129/67 96 Intake and Output 10/05/17 10/05/17 10/06/17 15:00 23:00 07:00 Output Total 500 ml Balance -500 ml Exam General: Well developed,adequately built, not in any acute distress . HEENT: Normocephalic, Atraumatic, No laceration or hematoma; Eyes: PEERL, Conjunctiva clear, Anicteric sclera Neck: Supple without any lymphadenopathy, nontender, no JVD, no carotid bruits, trachea midline, no thyromegaly Cardiac: S1, S2 auscultated, regular rhythm and rate, no mumurs or gallop Pulmonary: Normal respiratory effort. Chest clear to auscultation bilaterally, no adventitious breath sounds GI: Protuberant abdomen. With mild distention.. Soft, non tender, no masses, no rebound tenderness or guarding. Bowel sounds active on all four quadrants Genitourinary: Deferred Extremities: Left hip fracture with surgical incision/dressing intact. No cyanosis, clubbing, or edema. Pulses [2+] bilaterally. Full ROM on all four extremities. No focal weakness appreciated. Neurologic: Alert to person, place, time, and situation. Affect appropriate, intact sensation. Skin: Clean,dry, and intact. No ecchymosis, no rashes, or lesions Results Result Diagram: 10/06/17 0631 10/06/17 0631 Results 24 hrs Laboratory Tests Test 10/05/17 21:30 10/06/17 06:31 Urine Color STRAW Urine Clarity CLEAR Urine pH 6.0 Urine Specific [place] 1.004 Urine Ketones NEGATIVE Urine Nitrite NEGATIVE Urine Bilirubin NEGATIVE Urine Urobilinogen NEGATIVE Urine Leukocyte Esterase NEGATIVE Urine Microscopic RBC 4 Urine Microscopic WBC 4 Urine Bacteria FEW A Urine Hemoglobin 2+ H Urine Glucose NEGATIVE Urine Total Protein 1+ H White Blood Count 6.0 # Red Blood Count 3.20 L Hemoglobin 9.3 L Hematocrit 28.9 L Mean Corpuscular Volume 90.3 Mean Corpuscular Hemoglobin 29.1 Mean Corpuscular Hemoglobin Concent 32.2 Red Cell Distribution Width 15.2 H Platelet Count 182 Mean Platelet Volume 9.9 Neutrophils % 62.8 Lymphocytes % 15.8 Monocytes % 12.5 H Eosinophils % 6.0 Basophils % 0.7 Nucleated Red Blood Cells % 0.0 Neutrophils # 3.8 Lymphocytes # 1.0 Monocytes # 0.8 Eosinophils # 0.4 Basophils # 0.0 Nucleated Red Blood Cells # 0.0 Sodium Level 142 Potassium Level 5.1 Chloride Level 113 H Carbon Dioxide Level 22 Anion Gap 12 Blood Urea Nitrogen 48 H Creatinine 3.64 H Glucose Level 92 Calcium Level 8.2 L Total Bilirubin 0.5 Direct Bilirubin 0.00 Indirect Bilirubin 0.5 Aspartate Amino Transf (AST/SGOT) 24 Alanine Aminotransferase (ALT/SGPT) 24 Alkaline Phosphatase 93 Total Protein 6.1 Albumin 2.7 L Globulin 3.40 H Albumin/Globulin Ratio 0.79 Medications Medications Current Medications Ticagrelor (Brilinta) 90 mg Q12 PO Last administered on 10/06/17 09:12; Admin Dose 90 MG; Start 10/05/17 at 22:00 Ranolazine (Ranexa) 500 mg BID PO Last administered on 10/06/17 09:14; Admin Dose 500 MG; Start 10/05/17 at 22:00 Senna (Senokot) 1 tab BID PO Last administered on 10/06/17 09:13; Admin Dose 1 TAB; Start 10/05/17 at 22:00 Tamsulosin HCl (Flomax) 0.4 mg DAILY@21 PO Last administered on 10/05/17 22: 35; Admin Dose 0.4 MG; Start 10/05/17 at 22:00 Famotidine (Pepcid) 20 mg DAILY PO Last administered on 10/06/17 09:11; Admin Dose 20 MG; Start 10/06/17 at 09:00 Isosorbide Mononitrate (Imdur) 30 mg DAILY PO Last administered on 10/06/17 09:13; Admin Dose 30 MG; Start 10/06/17 at 09:00 Lactulose (Enulose) 20 gm BID PRN PO CONSTIPATION; Start 10/05/17 at 22:00 Magnesium Oxide (Mag-Ox 400) 400 mg DAILY PO Last administered on 10/06/17 09 :13; Admin Dose 400 MG; Start 10/06/17 at 09:00 Allopurinol (Zyloprim) 300 mg DAILY PO Last administered on 10/06/17 09:13; Admin Dose 300 MG; Start 10/06/17 at 09:00 Aspirin (Aspirin) 81 mg BID PO Last administered on 10/06/17 09:13; Admin Dose 81 MG; Start 10/05/17 at 22:00; Stop 11/16/17 at 09:01 Aspirin (Aspirin) 81 mg DAILY PO ; Start 11/17/17 at 09:00 Atorvastatin Calcium (Lipitor) 40 mg DAILY@21 PO Last administered on 22:34; Admin Dose 40 MG; Start 10/05/17 at 22:00 Carvedilol (Coreg) 3.125 mg BID PO Last administered on 10/06/17 09:14; Admin Dose 3.125 MG; Start 10/05/17 at 22:00 Cholecalciferol (Vitamin D) 2,000 unit DAILY PO Last administered on 09:14; Admin Dose 2,000 UNIT; Start 10/06/17 at 09:00 Docusate Sodium (Colace) 100 mg BID PO Last administered on 10/06/17 09:13; Admin Dose 100 MG; Start 10/06/17 at 09:00 Magnesium Hydroxide (Milk Of Mag) 30 ml BID PRN PO CONSTIPATION Last administered on 10/06/17 09:11; Admin Dose 30 ML; Start 10/05/17 at 23:00 Bisacodyl (Dulcolax Supp) 10 mg DAILY PRN [place] CONSTIPATION; Start 10/05/17 at 23:00 Acetaminophen (Tylenol Tab) 650 mg Q4H PRN PO PAIN; Start 10/05/17 at 23:00 ADIEL SOLO NP Oct 06, 2017 12:11
--- NOTE | 2017-10-06 13:09 | CONS ---
DATE OF ADMISSION: 10/05/2017 DATE OF CONSULTATION: 10/06/2017 TYPE OF CONSULTATION: Rehabilitation post-admission physician evaluation. REHABILITATION IMPAIRMENT CATEGORY: Left intertrochanteric hip fracture status post cephalomedullar y nailing. ACTIVE COMORBIDITIES: 1. Acute pain syndrome. 2. Coronary artery disease. 3. Chronic kidney disease. 4. Hypertension. 5. Hyperlipidemia. 6. BPH. 7. Gout. 8. Impairments in self-care, mobility. HISTORY OF PRESENT ILLNESS: The patient is a pleasant 67-year-old gentleman who is status post a m echanical fall with resultant left intertrochanteric hip fracture. Patient underwent a left hip cep halomedullary nailing. His postoperative course has been notable for significant pain in addition t o impairments in self-care and mobility. The patient has been cleared to transfer to the rehabilita tion unit for comprehensive interdisciplinary rehab care. FUNCTIONAL HISTORY: Prior to recent events, he was independent in self-care tasks and mobility. Cu rrently, he requires moderate assist for self-care and mobility tasks. I have reviewed the preadmission screen and the patient's current functional status is consistent wi th the preadmission screen. SOCIAL HISTORY: The patient lives at home and hopes to return there upon discharge. PAST MEDICAL HISTORY: 1. Coronary artery disease. 2. Chronic kidney disease. 3. Hypertension. 4. Hyperlipidemia. 5. BPH. 6. Gout. CURRENT MEDICATIONS: 1. Allopurinol 300 mg p.o. every day. 2. Aspirin 81 mg p.o. b.i.d. 3. Lipitor 40 mg p.o. every day. 4. Vitamin D. 5. Carvedilol 3.125 mg p.o. b.i.d. 6. Famotidine 20 mg p.o. every day. 7. [place] p.r.n. 8. Magnesium oxide 400 mg p.o. every day. 9. Ranexa 500 mg p.o. b.i.d. 10. Flomax 0.4 mg p.o. at bedtime. 11. Brilinta 90 mg p.o. q.12h. ALLERGIES: PENICILLIN. PHYSICAL EXAMINATION: VITAL SIGNS: The patient is currently afebrile with stable vital signs. HEENT: Extraocular motions intact. Oropharynx clear. NECK: Supple. LUNGS: Clear anteriorly. CARDIAC: S1, S2. ABDOMEN: Soft, nontender, positive bowel sounds. NEUROLOGIC: He is awake and alert and oriented x3, he can follow simple 1-step commands. Cranial n erves are grossly intact. He has good strength in bilateral upper extremity and in the right lower extremity. Dorsiflexion and plantar flexion intact on the left. PLAN: The patient has been admitted for comprehensive interdisciplinary acute rehab and is anticipa huong to tolerate 3 hours of daily therapy in divided doses for at least 5/7 days a week. Treatment p jessica will include: 1. Physical therapy to focus on bed mobility, transfers, and household ambulation with the goal of having the patient reach a standby assist level. 2. Occupational therapy to focus on hygiene, grooming, dressing, bathing, and toileting activities with the goal of having the patient reach standby assist level. 3. Rehabilitation nursing for carryover of therapeutic interventions, the goal of continent of kraig l and bladder and the goal of pain adequately managed on oral medications. REHABILITATION BARRIER: Pain. INTERVENTION FOR BARRIER: Comprehensive interdisciplinary approach. ESTIMATED LENGTH OF STAY: 10 days. DISPOSITION GOAL: Home. I acknowledge that I performed a full physical examination on this patient within 24 hours of admiss ion to the rehabilitation unit and believe the patient is a good candidate and is anticipated to issa e reasonable goals in a reasonable period of time as outlined above. Dictated By: ALYCIA IZQUIERDO/DOLLY Conf#: [id number] DID#: [id number]
--- NOTE | 2017-10-06 15:45 | PN ---
Date/Time of Note Date/Time of Note DATE: 10/06/17 TIME: 15:35 Assessment/Plan VTE Prophylaxis VTE Prophylaxis Intervention: ambulation Lines/Catheters IV C[facility]ter Type (from [facility] [place] Urinary Cath still in place: No Assessment/Plan Assessment/Plan 1. CKD Stage IV: Proteinuric with recent baseline around 2.5 mg/dL secondary to hypertensive nephrosclerosis with a history of NSAID use. Now with post-op JONO, suspect some ischemic ATN as well from hypotension. No nephrotoxins noted , no evidence of obstruction, UA similar to priors. No improvement with prior IVF challenge. Remains non oliguric with normal electrolytes and creatinine starting to plateau. BPs also normalized as well. Will continue to follow closely. Continue to avoid nephrotoxins, as you are. Dose all meds for his GFR. 2. HTN: With some post-op hypotension, asymptomatic. No improvement with IVF. Amlodipine on hold, remains on low dose coreg given his CAD. BPs improved /normalized although still relatively low for him. Appears euvolemic. Will cont to hold amlodipine. 3. BPH: On tamsulosin. No voiding issues at present, [place] removed. Will continue tamsulosin and monitor for urinary retention. 4. Vitamin D deficiency: Vitamin D low, but near target. On oral vitamin D. Corrected calcium is normal. Cont vitamin D. PTH pending. 5. Anemia: Mild at baseline. History of normal iron studies normal. Post-op anemia noted. No need for CARLOS at present. Will follow and transfuse PRN. 6. L Hip Fx: After mechanical fall. S/p L-hip cephalomedullary nailing . Management per Ortho. Now in inpatient rehab. D/w patient and RN. Subjective 24 Hr Interval Summary Free Text/Dictation Seen for JONO/CKD3. Transferred to rehab. Overall feeling well and denies complaints. Eating and drinking well. [place] out, denies voiding difficulties. Labs/meds reviewed. Constitutional: no complaints Respiratory: no complaints Cardiovascular: no complaints Gastrointestinal: no complaints Genitourinary: no complaints Musculoskeletal: no complaints Skin: no complaints Neurologic: no complaints Exam/Review of Systems Vital Signs Vitals Vital Signs Date Time Temp Pulse Resp B/P Pulse Ox O2 Delivery O2 Flow Rate FiO2 10/06/17 07:00 98.6 77 18 129/67 96 Intake and Output 10/05/17 10/05/17 10/06/17 15:00 23:00 07:00 Output Total 500 ml Balance -500 ml Exam Constitutional: alert, oriented, well developed Psych: no complaints Head: atraumatic, normocephalic Eyes: nl conjunctiva ENMT: mucosa pink and moist Neck: non-tender, other (NO JVD), supple Respiratory: clear to auscultation, normal air movement Cardiovascular: regular rate and rhythm Gastrointestinal: non-tender, soft Musculoskeletal: nl extremities to inspection Extremities: other (no edema) Skin: other (no rashes or lesions) Results Result Diagram: 10/06/1763010/06/17 0631 Results 24 hrs Laboratory Tests Test 10/05/17 21:30 10/06/17 06:31 Urine Color STRAW Urine Clarity CLEAR Urine pH 6.0 Urine Specific [place] 1.004 Urine Ketones NEGATIVE Urine Nitrite NEGATIVE Urine Bilirubin NEGATIVE Urine Urobilinogen NEGATIVE Urine Leukocyte Esterase NEGATIVE Urine Microscopic RBC 4 Urine Microscopic WBC 4 Urine Bacteria FEW A Urine Hemoglobin 2+ H Urine Glucose NEGATIVE Urine Total Protein 1+ H White Blood Count 6.0 # Red Blood Count 3.20 L Hemoglobin 9.3 L Hematocrit 28.9 L Mean Corpuscular Volume 90.3 Mean Corpuscular Hemoglobin 29.1 Mean Corpuscular Hemoglobin Concent 32.2 Red Cell Distribution Width 15.2 H Platelet Count 182 Mean Platelet Volume 9.9 Neutrophils % 62.8 Lymphocytes % 15.8 Monocytes % 12.5 H Eosinophils % 6.0 Basophils % 0.7 Nucleated Red Blood Cells % 0.0 Neutrophils # 3.8 Lymphocytes # 1.0 Monocytes # 0.8 Eosinophils # 0.4 Basophils # 0.0 Nucleated Red Blood Cells # 0.0 Sodium Level 142 Potassium Level 5.1 Chloride Level 113 H Carbon Dioxide Level 22 Anion Gap 12 Blood Urea Nitrogen 48 H Creatinine 3.64 H Glucose Level 92 Calcium Level 8.2 L Total Bilirubin 0.5 Direct Bilirubin 0.00 Indirect Bilirubin 0.5 Aspartate Amino Transf (AST/SGOT) 24 Alanine Aminotransferase (ALT/SGPT) 24 Alkaline Phosphatase 93 Total Protein 6.1 Albumin 2.7 L Globulin 3.40 H Albumin/Globulin Ratio 0.79 Medications Medications Current Medications Ticagrelor (Brilinta) 90 mg Q12 PO Last administered on 10/06/17 09:12; Admin Dose 90 MG; Start 10/05/17 at 22:00 Ranolazine (Ranexa) 500 mg BID PO Last administered on 10/06/17 09:14; Admin Dose 500 MG; Start 10/05/17 at 22:00 Senna (Senokot) 1 tab BID PO Last administered on 10/06/17 09:13; Admin Dose 1 TAB; Start 10/05/17 at 22:00 Tamsulosin HCl (Flomax) 0.4 mg DAILY@21 PO Last administered on 10/05/17 22: 35; Admin Dose 0.4 MG; Start 10/05/17 at 22:00 Famotidine (Pepcid) 20 mg DAILY PO Last administered on 10/06/17 09:11; Admin Dose 20 MG; Start 10/06/17 at 09:00 Isosorbide Mononitrate (Imdur) 30 mg DAILY PO Last administered on 10/06/17 09:13; Admin Dose 30 MG; Start 10/06/17 at 09:00 Lactulose (Enulose) 20 gm BID PRN PO CONSTIPATION; Start 10/05/17 at 22:00 Magnesium Oxide (Mag-Ox 400) 400 mg DAILY PO Last administered on 10/06/17 09 :13; Admin Dose 400 MG; Start 10/06/17 at 09:00 Allopurinol (Zyloprim) 300 mg DAILY PO Last administered on 10/06/17 09:13; Admin Dose 300 MG; Start 10/06/17 at 09:00 Aspirin (Aspirin) 81 mg BID PO Last administered on 10/06/17 09:13; Admin Dose 81 MG; Start 10/05/17 at 22:00; Stop 11/16/17 at 09:01 Aspirin (Aspirin) 81 mg DAILY PO ; Start 11/17/17 at 09:00 Atorvastatin Calcium (Lipitor) 40 mg DAILY@21 PO Last administered on 22:34; Admin Dose 40 MG; Start 10/05/17 at 22:00 Carvedilol (Coreg) 3.125 mg BID PO Last administered on 10/06/17 09:14; Admin Dose 3.125 MG; Start 10/05/17 at 22:00 Cholecalciferol (Vitamin D) 2,000 unit DAILY PO Last administered on 09:14; Admin Dose 2,000 UNIT; Start 10/06/17 at 09:00 Docusate Sodium (Colace) 100 mg BID PO Last administered on 10/06/17 09:13; Admin Dose 100 MG; Start 10/06/17 at 09:00 Magnesium Hydroxide (Milk Of Mag) 30 ml BID PRN PO CONSTIPATION Last administered on 10/06/17 09:11; Admin Dose 30 ML; Start 10/05/17 at 23:00 Bisacodyl (Dulcolax Supp) 10 mg DAILY PRN [place] CONSTIPATION; Start 10/05/17 at 23:00 Acetaminophen (Tylenol Tab) 650 mg Q4H PRN PO PAIN; Start 10/05/17 at 23:00 ROGERS MCDONALD Oct 06, 2017 15:45
[2017-10-06 20:00] VITALS: BP 131/62; RESP 18
[2017-10-06] MEDS: TAMSULOSIN (SR) 0.4 MG CAP PO SCH (21:38)
[2017-10-06] MEDS: ATORVASTATIN 40 MG TAB PO SCH (21:38)
[2017-10-07 07:30] VITALS: BP 158/79; RESP 20
[2017-10-07 07:42] LABS: CALCIUM 8.8 mg/dl (8.4-10.2); CREATININE 3.24 mg/dl (0.61-1.24)
[2017-10-07] MEDS: ISOSORBIDE MONONITRATE(SR)30 MG TAB PO SCH (09:00)
[2017-10-07] MEDS: DOCUSATE SODIUM 100 MG CAP PO SCH ×2 (11:20→20:19)
[2017-10-07] MEDS: SENNA TAB PO SCH (11:20)
[2017-10-07] MEDS: RANOLAZINE (SR) 500 MG TAB PO SCH ×2 (11:21→20:18)
[2017-10-07] MEDS: ALLOPURINOL 300 MG TAB PO SCH (11:21)
[2017-10-07] MEDS: CHOLECALCIFEROL 2,000 UNIT CAP PO SCH (11:21)
[2017-10-07] MEDS: MAGNESIUM OXIDE 400 MG TAB PO SCH (11:22)
[2017-10-07] MEDS: FAMOTIDINE 20 MG TAB PO SCH (11:23)
[2017-10-07] MEDS: ASPIRIN 81 MG TAB PO SCH ×2 (11:23→20:18)
[2017-10-07] MEDS: TICAGRELOR 90 MG TABLET PO SCH ×2 (11:24→20:23)
--- NOTE | 2017-10-07 11:31 | CONS ---
Date/Time of Note Date/Time of Note DATE: 10/07/17 TIME: 11:30 Consult Date/Type/Reason Admit Date/Time Oct 05, 2017 at 21:14 Initial Consult Date Type of Consultation: cardiology Subjective Pain under good control Objective Min assist Vital Signs Date Time Temp Pulse Resp B/P Pulse Ox O2 Delivery O2 Flow Rate FiO2 10/07/17 07:30 98.6 74 20 158/79 97 Intake and Output 10/06/17 10/06/17 10/07/17 15:00 23:00 07:00 Intake Total 850 ml 1800 ml 1500 ml Output Total 1600 ml 600 ml Balance 850 ml 200 ml 900 ml Results/Medications Result Diagram: 10/06/17 0631 10/07/17 0613 Results 24 hrs Laboratory Tests Test 10/07/17 06:13 Sodium Level 143 Potassium Level 5.0 Chloride Level 110 Carbon Dioxide Level 21 Anion Gap 17 H Blood Urea Nitrogen 52 H Creatinine 3.24 H Glucose Level 97 Calcium Level 8.8 Medications Current Medications Ticagrelor (Brilinta) 90 mg Q12 PO Last administered on 10/07/17 11:24; Admin Dose 90 MG; Start 10/05/17 at 22:00 Ranolazine (Ranexa) 500 mg BID PO Last administered on 10/07/17 11:21; Admin Dose 500 MG; Start 10/05/17 at 22:00 Senna (Senokot) 1 tab BID PO Last administered on 10/07/17 11:20; Admin Dose 1 TAB; Start 10/05/17 at 22:00 Tamsulosin HCl (Flomax) 0.4 mg DAILY@21 PO Last administered on 10/06/17 21: 38; Admin Dose 0.4 MG; Start 10/05/17 at 22:00 Famotidine (Pepcid) 20 mg DAILY PO Last administered on 10/07/17 11:23; Admin Dose 20 MG; Start 10/06/17 at 09:00 Isosorbide Mononitrate (Imdur) 30 mg DAILY PO Last administered on 10/06/17 09:13; Admin Dose 30 MG; Start 10/06/17 at 09:00 Lactulose (Enulose) 20 gm BID PRN PO CONSTIPATION; Start 10/05/17 at 22:00 Magnesium Oxide (Mag-Ox 400) 400 mg DAILY PO Last administered on 10/07/17 11 :22; Admin Dose 400 MG; Start 10/06/17 at 09:00 Allopurinol (Zyloprim) 300 mg DAILY PO Last administered on 10/07/17 11:21; Admin Dose 300 MG; Start 10/06/17 at 09:00 Aspirin (Aspirin) 81 mg BID PO Last administered on 10/07/17 11:23; Admin Dose 81 MG; Start 10/05/17 at 22:00; Stop 11/16/17 at 09:01 Aspirin (Aspirin) 81 mg DAILY PO ; Start 11/17/17 at 09:00 Atorvastatin Calcium (Lipitor) 40 mg DAILY@21 PO Last administered on 21:38; Admin Dose 40 MG; Start 10/05/17 at 22:00 Carvedilol (Coreg) 3.125 mg BID PO Last administered on 10/07/17 11:21; Admin Dose 3.125 MG; Start 10/05/17 at 22:00 Cholecalciferol (Vitamin D) 2,000 unit DAILY PO Last administered on 11:21; Admin Dose 2,000 UNIT; Start 10/06/17 at 09:00 Docusate Sodium (Colace) 100 mg BID PO Last administered on 10/07/17 11:20; Admin Dose 100 MG; Start 10/06/17 at 09:00 Magnesium Hydroxide (Milk Of Mag) 30 ml BID PRN PO CONSTIPATION Last administered on 10/06/17 09:11; Admin Dose 30 ML; Start 10/05/17 at 23:00 Bisacodyl (Dulcolax Supp) 10 mg DAILY PRN [place] CONSTIPATION; Start 10/05/17 at 23:00 Acetaminophen (Tylenol Tab) 650 mg Q4H PRN PO PAIN; Start 10/05/17 at 23:00 Assessment/Plan Additional Assessment/Plan Rehabilitation- left intertrochanteric hip fracture status post cephalomedullary nailing. Tolerating rehab program Acute pain syndrome-to new current medication Coronary artery disease. Chronic kidney disease. Hypertension. Hyperlipidemia. BPH. Gout. ALYCIA MYERS MD Oct 07, 2017 11:31
--- NOTE | 2017-10-07 13:40 | PN ---
Date/Time of Note Date/Time of Note DATE: 10/07/17 TIME: 13:39 Assessment/Plan VTE Prophylaxis VTE Prophylaxis Intervention: ambulation Lines/Catheters IV [facility] Saline Lock Urinary Cath still in place: No Assessment/Plan Chief Complaint/Hosp Course 67-year-old male with a history of coronary artery disease with multiple stent placed in the past, who is transferred to acute rehabilitation unit for further complex interdisciplinary rehab activities after patient had left hip cephalo- medullary nailing. 1. Mechanical fall with left closed displaced femoral neck fracture. Status post Left hip cephalomedullary nailing -10/03/2017. -Continue PT/OT eval and treatment. -Follow-up with orthopedics in 1-2 weeks. 2. Coronary artery disease with multiple PCI with multiple stents. -Continue aspirin/melena/beta-trinity/nitrates/statin. 3. Acute on CKD, Stage IV.Baseline creatinine 2.5-2.9. Renal function started to improve gradually. -Follow-up with nephrology recommendations. -Monitor renal function closely. 4. Hypertension: Stable. -Continue antihypertensives with adjustment as needed 5. Gout -on allopurinol 6. BPH -On Flomax 7. Vitamin D deficiency. -Continue replacement. 8. Constipation. Resolved. -Continue stool softeners. Discontinue laxatives. DVT prophylaxis: Aspirin 81 mg twice daily along with Brilinta per orthopedic recommendations. Patient was seen in collaboration with . Problems: Subjective 24 Hr Interval Summary Free Text/Dictation Patient doing well. Has been participating with physical therapy. Exam/Review of Systems Vital Signs Vitals Vital Signs Date Time Temp Pulse Resp B/P Pulse Ox O2 Delivery O2 Flow Rate FiO2 10/07/17 07:30 98.6 74 20 158/79 97 Intake and Output 10/06/17 10/06/17 10/07/17 15:00 23:00 07:00 Intake Total 850 ml 1800 ml 1500 ml Output Total 1600 ml 600 ml Balance 850 ml 200 ml 900 ml Exam General: Well developed,adequately built, not in any acute distress . HEENT: Normocephalic, Atraumatic, No laceration or hematoma; Eyes: PEERL, Conjunctiva clear, Anicteric sclera Neck: Supple without any lymphadenopathy, nontender, no JVD, no carotid bruits, trachea midline, no thyromegaly Cardiac: S1, S2 auscultated, regular rhythm and rate, no mumurs or gallop Pulmonary: Normal respiratory effort. Chest clear to auscultation bilaterally, no adventitious breath sounds GI: Protuberant abdomen. With mild distention.. Soft, non tender, no masses, no rebound tenderness or guarding. Bowel sounds active on all four quadrants Genitourinary: Deferred Extremities: Left hip fracture with surgical incision/dressing intact. No cyanosis, clubbing, or edema. Pulses [2+] bilaterally. Full ROM on all four extremities. No focal weakness appreciated. Neurologic: Alert to person, place, time, and situation. Affect appropriate, intact sensation. Skin: Clean,dry, and intact. No ecchymosis, no rashes, or lesions Results Result Diagram: 10/06/17 0631 10/07/17 0613 Results 24 hrs Laboratory Tests Test 10/07/17 06:13 Sodium Level 143 Potassium Level 5.0 Chloride Level 110 Carbon Dioxide Level 21 Anion Gap 17 H Blood Urea Nitrogen 52 H Creatinine 3.24 H Glucose Level 97 Calcium Level 8.8 Medications Medications Current Medications Ticagrelor (Brilinta) 90 mg Q12 PO Last administered on 10/07/17 11:24; Admin Dose 90 MG; Start 10/05/17 at 22:00 Ranolazine (Ranexa) 500 mg BID PO Last administered on 10/07/17 11:21; Admin Dose 500 MG; Start 10/05/17 at 22:00 Senna (Senokot) 1 tab BID PO Last administered on 10/07/17 11:20; Admin Dose 1 TAB; Start 10/05/17 at 22:00 Tamsulosin HCl (Flomax) 0.4 mg DAILY@21 PO Last administered on 10/06/17 21: 38; Admin Dose 0.4 MG; Start 10/05/17 at 22:00 Famotidine (Pepcid) 20 mg DAILY PO Last administered on 10/07/17 11:23; Admin Dose 20 MG; Start 10/06/17 at 09:00 Isosorbide Mononitrate (Imdur) 30 mg DAILY PO Last administered on 10/06/17 09:13; Admin Dose 30 MG; Start 10/06/17 at 09:00 Lactulose (Enulose) 20 gm BID PRN PO CONSTIPATION; Start 10/05/17 at 22:00 Magnesium Oxide (Mag-Ox 400) 400 mg DAILY PO Last administered on 10/07/17 11 :22; Admin Dose 400 MG; Start 10/06/17 at 09:00 Allopurinol (Zyloprim) 300 mg DAILY PO Last administered on 10/07/17 11:21; Admin Dose 300 MG; Start 10/06/17 at 09:00 Aspirin (Aspirin) 81 mg BID PO Last administered on 10/07/17 11:23; Admin Dose 81 MG; Start 10/05/17 at 22:00; Stop 11/16/17 at 09:01 Aspirin (Aspirin) 81 mg DAILY PO ; Start 11/17/17 at 09:00 Atorvastatin Calcium (Lipitor) 40 mg DAILY@21 PO Last administered on 21:38; Admin Dose 40 MG; Start 10/05/17 at 22:00 Carvedilol (Coreg) 3.125 mg BID PO Last administered on 10/07/17 11:21; Admin Dose 3.125 MG; Start 10/05/17 at 22:00 Cholecalciferol (Vitamin D) 2,000 unit DAILY PO Last administered on 11:21; Admin Dose 2,000 UNIT; Start 10/06/17 at 09:00 Docusate Sodium (Colace) 100 mg BID PO Last administered on 10/07/17 11:20; Admin Dose 100 MG; Start 10/06/17 at 09:00 Magnesium Hydroxide (Milk Of Mag) 30 ml BID PRN PO CONSTIPATION Last administered on 10/06/17 09:11; Admin Dose 30 ML; Start 10/05/17 at 23:00 Bisacodyl (Dulcolax Supp) 10 mg DAILY PRN [place] CONSTIPATION; Start 10/05/17 at 23:00 Acetaminophen (Tylenol Tab) 650 mg Q4H PRN PO PAIN; Start 10/05/17 at 23:00 ADIEL SOLO NP Oct 07, 2017 13:40
--- NOTE | 2017-10-07 13:56 | PN ---
Date/Time of Note Date/Time of Note DATE: 10/07/17 TIME: 13:50 Assessment/Plan VTE Prophylaxis VTE Prophylaxis Intervention: other Lines/Catheters IV Catheter Type (from [facility]): Saline Lock Urinary Cath still in place: No Assessment/Plan Assessment/Plan 1. CKD Stage IV: Proteinuric with recent baseline around 2.5 mg/dL secondary to hypertensive nephrosclerosis with a history of NSAID use. Now with post-op JONO, suspect some ischemic ATN as well from hypotension. No nephrotoxins noted , no evidence of obstruction, UA similar to priors. Renal function turning the corner with time, and as blood pressures improve. Continue supportive care and will follow. Avoid nephrotoxins. Dose all meds for his GFR. 2. HTN: With some post-op hypotension, asymptomatic. Improving. Cont to hold amlodipine. Can restart as needed. 3. BPH: On tamsulosin. No voiding issues at present, [place] out. Will continue tamsulosin and monitor for urinary retention. 4. Vitamin D deficiency: Vitamin D low, but near target. On oral vitamin D. Corrected calcium is normal. Cont vitamin D. PTH pending. 5. Anemia: Mild at baseline. History of normal iron studies normal. Post-op anemia noted. No need for CARLOS at present. Will follow and transfuse PRN. 6. L Hip Fx: After mechanical fall. S/p L-hip cephalomedullary nailing . Management per Ortho. Now in inpatient rehab. 7. UTI: Urine cx with staph species from 10/05. Consider trial of oral antibiotics. D/w patient and RN. Subjective 24 Hr Interval Summary Constitutional: no complaints Respiratory: no complaints Cardiovascular: no complaints Gastrointestinal: no complaints Genitourinary: no complaints Musculoskeletal: no complaints Skin: no complaints Neurologic: no complaints Exam/Review of Systems Vital Signs Vitals Vital Signs Date Time Temp Pulse Resp B/P Pulse Ox O2 Delivery O2 Flow Rate FiO2 10/07/17 07:30 98.6 74 20 158/79 97 Intake and Output 10/06/17 10/06/17 10/07/17 15:00 23:00 07:00 Intake Total 850 ml 1800 ml 1500 ml Output Total 1600 ml 600 ml Balance 850 ml 200 ml 900 ml Exam Constitutional: alert, oriented, well developed Psych: nl mood/affect, no complaints Head: atraumatic, normocephalic Eyes: nl conjunctiva, nl sclera ENMT: mucosa pink and moist, nl external ears & nose, nl lips & teeth Neck: non-tender, other (no JVD), supple Respiratory: clear to auscultation, normal air movement Cardiovascular: regular rate and rhythm Gastrointestinal: non-tender, soft Musculoskeletal: nl extremities to inspection Extremities: other (no edema) Neurological: nl mental status, nl speech Skin: nl turgor Results Result Diagram: 10/06/1731 10/07/17 0613 Results 24 hrs Laboratory Tests Test 10/07/17 06:13 Sodium Level 143 Potassium Level 5.0 Chloride Level 110 Carbon Dioxide Level 21 Anion Gap 17 H Blood Urea Nitrogen 52 H Creatinine 3.24 H Glucose Level 97 Calcium Level 8.8 Medications Medications Current Medications Ticagrelor (Brilinta) 90 mg Q12 PO Last administered on 10/07/17 11:24; Admin Dose 90 MG; Start 10/05/17 at 22:00 Ranolazine (Ranexa) 500 mg BID PO Last administered on 10/07/17 11:21; Admin Dose 500 MG; Start 10/05/17 at 22:00 Tamsulosin HCl (Flomax) 0.4 mg DAILY@21 PO Last administered on 10/06/17 21: 38; Admin Dose 0.4 MG; Start 10/05/17 at 22:00 Famotidine (Pepcid) 20 mg DAILY PO Last administered on 10/07/17 11:23; Admin Dose 20 MG; Start 10/06/17 at 09:00 Isosorbide Mononitrate (Imdur) 30 mg DAILY PO Last administered on 10/06/17 09:13; Admin Dose 30 MG; Start 10/06/17 at 09:00 Lactulose (Enulose) 20 gm BID PRN PO CONSTIPATION; Start 10/05/17 at 22:00 Magnesium Oxide (Mag-Ox 400) 400 mg DAILY PO Last administered on 10/07/17 11 :22; Admin Dose 400 MG; Start 10/06/17 at 09:00 Allopurinol (Zyloprim) 300 mg DAILY PO Last administered on 10/07/17 11:21; Admin Dose 300 MG; Start 10/06/17 at 09:00 Aspirin (Aspirin) 81 mg BID PO Last administered on 10/07/17 11:23; Admin Dose 81 MG; Start 10/05/17 at 22:00; Stop 11/16/17 at 09:01 Aspirin (Aspirin) 81 mg DAILY PO ; Start 11/17/17 at 09:00 Atorvastatin Calcium (Lipitor) 40 mg DAILY@21 PO Last administered on 21:38; Admin Dose 40 MG; Start 10/05/17 at 22:00 Carvedilol (Coreg) 3.125 mg BID PO Last administered on 10/07/17 11:21; Admin Dose 3.125 MG; Start 10/05/17 at 22:00 Cholecalciferol (Vitamin D) 2,000 unit DAILY PO Last administered on 11:21; Admin Dose 2,000 UNIT; Start 10/06/17 at 09:00 Docusate Sodium (Colace) 100 mg BID PO Last administered on 10/07/17 11:20; Admin Dose 100 MG; Start 10/06/17 at 09:00 Magnesium Hydroxide (Milk Of Mag) 30 ml BID PRN PO CONSTIPATION Last administered on 10/06/17 09:11; Admin Dose 30 ML; Start 10/05/17 at 23:00 Bisacodyl (Dulcolax Supp) 10 mg DAILY PRN [place] CONSTIPATION; Start 10/05/17 at 23:00 Acetaminophen (Tylenol Tab) 650 mg Q4H PRN PO PAIN; Start 10/05/17 at 23:00 ROGERS MCDONALD Oct 07, 2017 13:56
[2017-10-07 14:00] VITALS: BP 130/76; RESP 20
[2017-10-07] MEDS: ATORVASTATIN 40 MG TAB PO SCH (20:18)
[2017-10-07] MEDS: TAMSULOSIN (SR) 0.4 MG CAP PO SCH (20:19)
[2017-10-07 21:30] VITALS: BP 179/88; PULSE 74; RESP 16
[2017-10-07 22:40] VITALS: BP 140/65; PULSE 68
[2017-10-07 23:14] VITALS: BP 182/72; RESP 18
[2017-10-08 02:00] VITALS: BP 130/75; RESP 18
[2017-10-08 06:00] VITALS: BP 114/63; PULSE 63
[2017-10-08 07:30] VITALS: BP 143/74; RESP 20
[2017-10-08 07:51] LABS: CALCIUM 8.8 mg/dl (8.4-10.2); CREATININE 3.08 mg/dl (0.61-1.24)
--- NOTE | 2017-10-08 08:16 | CONS ---
Date/Time of Note Date/Time of Note DATE: 10/08/17 TIME: 08:16 Consult Date/Type/Reason Admit Date/Time Oct 05, 2017 at 21:14 Type of Consultation: cardiology Subjective Pain under adequate control Objective pulm-cta cga/sba ambulation Vital Signs Date Time Temp Pulse Resp B/P Pulse Ox O2 Delivery O2 Flow Rate FiO2 10/08/17 06:00 63 114/63 10/08/17 02:00 98.5 18 97 Intake and Output 10/07/17 10/07/17 10/08/17 14:59 22:59 06:59 Intake Total 1340 ml Balance 1340 ml Results/Medications Result Diagram: 10/06/17 0631 10/08/17 0614 Results 24 hrs Laboratory Tests Test 10/08/17 06:14 Sodium Level 142 Potassium Level 5.0 Chloride Level 107 Carbon Dioxide Level 24 Anion Gap 16 Blood Urea Nitrogen 51 H Creatinine 3.08 H Glucose Level 96 Calcium Level 8.8 Medications Current Medications Ticagrelor (Brilinta) 90 mg Q12 PO Last administered on 10/07/17 20:23; Admin Dose 90 MG; Start 10/05/17 at 22:00 Ranolazine (Ranexa) 500 mg BID PO Last administered on 10/07/17 20:18; Admin Dose 500 MG; Start 10/05/17 at 22:00 Tamsulosin HCl (Flomax) 0.4 mg DAILY@21 PO Last administered on 10/07/17 20: 19; Admin Dose 0.4 MG; Start 10/05/17 at 22:00 Famotidine (Pepcid) 20 mg DAILY PO Last administered on 10/07/17 11:23; Admin Dose 20 MG; Start 10/06/17 at 09:00 Isosorbide Mononitrate (Imdur) 30 mg DAILY PO Last administered on 10/06/17 09:13; Admin Dose 30 MG; Start 10/06/17 at 09:00 Lactulose (Enulose) 20 gm BID PRN PO CONSTIPATION; Start 10/05/17 at 22:00 Magnesium Oxide (Mag-Ox 400) 400 mg DAILY PO Last administered on 10/07/17 11 :22; Admin Dose 400 MG; Start 10/06/17 at 09:00 Allopurinol (Zyloprim) 300 mg DAILY PO Last administered on 10/07/17 11:21; Admin Dose 300 MG; Start 10/06/17 at 09:00 Aspirin (Aspirin) 81 mg BID PO Last administered on 10/07/17 20:18; Admin Dose 81 MG; Start 10/05/17 at 22:00; Stop 11/16/17 at 09:01 Aspirin (Aspirin) 81 mg DAILY PO ; Start 11/17/17 at 09:00 Atorvastatin Calcium (Lipitor) 40 mg DAILY@21 PO Last administered on 20:18; Admin Dose 40 MG; Start 10/05/17 at 22:00 Carvedilol (Coreg) 3.125 mg BID PO Last administered on 10/07/17 20:20; Admin Dose 3.125 MG; Start 10/05/17 at 22:00 Cholecalciferol (Vitamin D) 2,000 unit DAILY PO Last administered on 11:21; Admin Dose 2,000 UNIT; Start 10/06/17 at 09:00 Docusate Sodium (Colace) 100 mg BID PO Last administered on 10/07/17 20:19; Admin Dose 100 MG; Start 10/06/17 at 09:00 Magnesium Hydroxide (Milk Of Mag) 30 ml BID PRN PO CONSTIPATION Last administered on 10/06/17 09:11; Admin Dose 30 ML; Start 10/05/17 at 23:00 Bisacodyl (Dulcolax Supp) 10 mg DAILY PRN [place] CONSTIPATION; Start 10/05/17 at 23:00 Acetaminophen (Tylenol Tab) 650 mg Q4H PRN PO PAIN; Start 10/05/17 at 23:00 Hydralazine HCl (Apresoline) 25 mg Q8H PRN PO SBP>170 Last administered on 21:38; Admin Dose 25 MG; Start 10/07/17 at 21:30; Stop 10/08/17 at 21: 29 Assessment/Plan Additional Assessment/Plan Rehabilitation- left intertrochanteric hip fracture status post cephalomedullary nailing. Continue rehab program Acute pain syndrome-improved Coronary artery disease. Chronic kidney disease. Hypertension. Hyperlipidemia. BPH. Gout. ALYCIA MYERS MD Oct 08, 2017 08:16
[2017-10-08] MEDS: ASPIRIN 81 MG TAB PO SCH ×2 (08:55→20:56)
[2017-10-08] MEDS: RANOLAZINE (SR) 500 MG TAB PO SCH ×2 (08:55→20:56)
[2017-10-08] MEDS: MAGNESIUM OXIDE 400 MG TAB PO SCH (08:55)
[2017-10-08] MEDS: DOCUSATE SODIUM 100 MG CAP PO SCH ×2 (08:55→20:57)
[2017-10-08] MEDS: ALLOPURINOL 300 MG TAB PO SCH (08:56)
[2017-10-08] MEDS: CHOLECALCIFEROL 2,000 UNIT CAP PO SCH (08:56)
[2017-10-08] MEDS: FAMOTIDINE 20 MG TAB PO SCH (08:56)
[2017-10-08] MEDS: ISOSORBIDE MONONITRATE(SR)30 MG TAB PO SCH (08:57)
[2017-10-08] MEDS: TICAGRELOR 90 MG TABLET PO SCH ×2 (09:01→20:59)
[2017-10-08] MEDS: ACETYLCYSTEINE 600 MG CAP PO SCH ×2 (10:30→21:00)
--- NOTE | 2017-10-08 10:31 | PN ---
Date/Time of Note Date/Time of Note DATE: 10/08/17 TIME: :29 Assessment/Plan VTE Prophylaxis VTE Prophylaxis Intervention: heparin Lines/Catheters [facility] Saline Lock Urinary Cath still in place: No Assessment/Plan Problems: (1) UTI (lower urinary tract infection) Status: Acute Comment: On antibiotics. Will check for postvoid residual (2) Diastolic dysfunction Status: Chronic Comment: Titrate up on the carvedilol beta-blockade as this would be the most ideal agent in the setting watch blood pressure (3) Essential hypertension Status: Chronic Comment: As above. Room to titrate up on the carvedilol (4) Kidney disease, chronic, stage IV (GFR 15-29 ml/min) Status: Chronic Comment: Noted. Continue renal dose adjustments on medications and make sure we are not dealing with significant obstructive uropathy which I doubt (5) Coronary artery disease Status: Chronic Comment: Quiescent although he has a history of significant interventions in the past. Up titration on the beta-trinity is appropriate. Risk factor modification. Qualifiers: Coronary Disease-Associated Artery/Lesion type: [place] artery [place] vs. transplanted heart: [place] heart Associated angina: without angina Qualified Code: I25.10 - Coronary artery disease involving [place] coronary artery of [place] heart without angina pectoris (6) Gout Status: Chronic Comment: Quiescent and controlled on allopurinol Qualifiers: Gout site: unspecified site Gout etiology: unspecified cause Chronicity: chronic Presence of tophus: without tophus Qualified Code: M1A.9XX0 - Chronic gout without tophus, unspecified cause, unspecified site (7) Hyperlipidemia Status: Chronic Comment: Continue on statin therapy Qualifiers: Hyperlipidemia type: pure hypercholesterolemia Qualified Code: E78.00 - Pure hypercholesterolemia (8) Benign prostatic hyperplasia Status: Chronic Comment: Check postvoid residual Qualifiers: Lower urinary tract symptom presence: unspecified whether lower urinary tract symptoms present Qualified Code: N40.0 - Benign prostatic hyperplasia, unspecified whether lower urinary tract symptoms present Subjective 24 Hr Interval Summary Free Text/Dictation Patient lying in bed easily aroused. Constitutional: no complaints Respiratory: no complaints Cardiovascular: no complaints Gastrointestinal: no complaints Genitourinary: no complaints Musculoskeletal: other (Reports pain under good control) Exam/Review of Systems Vital Signs Vitals Vital Signs Date Time Temp Pulse Resp B/P Pulse Ox O2 Delivery O2 Flow Rate FiO2 10/08/17 07:30 98.7 78 20 143/74 95 Intake and Output 10/07/17 10/07/17 10/08/17 15:00 23:00 07:00 Intake Total 1340 ml 750 ml Balance 1340 ml 750 ml Exam Constitutional: alert, oriented Respiratory: clear to auscultation, normal air movement Cardiovascular: nl pulses, regular rate and rhythm Gastrointestinal: nl liver, spleen, non-tender, soft Results Result Diagram: 10/06/17 0631 10/08/17 0614 Results 24 hrs Laboratory Tests Test 10/08/17 06:14 Sodium Level 142 Potassium Level 5.0 Chloride Level 107 Carbon Dioxide Level 24 Anion Gap 16 Blood Urea Nitrogen 51 H Creatinine 3.08 H Glucose Level 96 Calcium Level 8.8 Medications Medications Current Medications Ticagrelor (Brilinta) 90 mg Q12 PO Last administered on 10/08/17 09:01; Admin Dose 90 MG; Start 10/05/17 at 22:00 Ranolazine (Ranexa) 500 mg BID PO Last administered on 10/08/17 08:55; Admin Dose 500 MG; Start 10/05/17 at 22:00 Tamsulosin HCl (Flomax) 0.4 mg DAILY@21 PO Last administered on 10/07/17 20: 19; Admin Dose 0.4 MG; Start 10/05/17 at 22:00 Famotidine (Pepcid) 20 mg DAILY PO Last administered on 10/08/17 08:56; Admin Dose 20 MG; Start 10/06/17 at 09:00 Isosorbide Mononitrate (Imdur) 30 mg DAILY PO Last administered on 10/08/17 08:57; Admin Dose 30 MG; Start 10/06/17 at 09:00 Lactulose (Enulose) 20 gm BID PRN PO CONSTIPATION; Start 10/05/17 at 22:00 Magnesium Oxide (Mag-Ox 400) 400 mg DAILY PO Last administered on 10/08/17 08 :55; Admin Dose 400 MG; Start 10/06/17 at 09:00 Allopurinol (Zyloprim) 300 mg DAILY PO Last administered on 10/08/17 08:56; Admin Dose 300 MG; Start 10/06/17 at 09:00 Aspirin (Aspirin) 81 mg BID PO Last administered on 10/08/17 08:55; Admin Dose 81 MG; Start 10/05/17 at 22:00; Stop 11/16/17 at 09:01 Aspirin (Aspirin) 81 mg DAILY PO ; Start 11/17/17 at 09:00 Atorvastatin Calcium (Lipitor) 40 mg DAILY@21 PO Last administered on 20:18; Admin Dose 40 MG; Start 10/05/17 at 22:00 Carvedilol (Coreg) 3.125 mg BID PO Last administered on 10/08/17 08:56; Admin Dose 3.125 MG; Start 10/05/17 at 22:00 Cholecalciferol (Vitamin D) 2,000 unit DAILY PO Last administered on 08:56; Admin Dose 2,000 UNIT; Start 10/06/17 at 09:00 Docusate Sodium (Colace) 100 mg BID PO Last administered on 10/08/17 08:55; Admin Dose 100 MG; Start 10/06/17 at 09:00 Magnesium Hydroxide (Milk Of Mag) 30 ml BID PRN PO CONSTIPATION Last administered on 10/06/17 09:11; Admin Dose 30 ML; Start 10/05/17 at 23:00 Bisacodyl (Dulcolax Supp) 10 mg DAILY PRN [place] CONSTIPATION; Start 10/05/17 at 23:00 Acetaminophen (Tylenol Tab) 650 mg Q4H PRN PO PAIN; Start 10/05/17 at 23:00 Hydralazine HCl (Apresoline) 25 mg Q8H PRN PO SBP>170 Last administered on 21:38; Admin Dose 25 MG; Start 10/07/17 at 21:30; Stop 10/08/17 at 21: 29 SERGEY CALDERON MD Oct 08, 2017 10:31
--- NOTE | 2017-10-08 13:50 | CONS ---
Date/Time of Note Date/Time of Note DATE: 10/08/17 TIME: 13:48 Consult Date/Type/Reason Admit Date/Time Oct 05, 2017 at 21:14 Type of Consultation: cardiology Subjective cardiology follow up note: S: D/W STAFF pt with no chest pain or pressure. mild leg pain now s/p hip surgery 10/03/17 . now in rehab. pt is able to do PT O: General: no acute distress HEENT: NC/AT. pupils are equal. round. NECK: NO JVD. no stridor. CV: RRR. systolic murmur; no gallop or rubs. PULM: no wheezing or rhonchi. GI: SOFT, NT, ND, no rebound or guarding Extremity: trace B/L LE edema. no clubbing. s/p left leg surgery neuro: awake and alert, OX3. Psych: calm and pleasant rectal: deferred : normal male Objective Vital Signs Date Time Temp Pulse Resp B/P Pulse Ox O2 Delivery O2 Flow Rate FiO2 10/08/17 07:30 98.7 78 20 143/74 95 Intake and Output 10/07/17 10/07/17 10/08/17 15:00 23:00 07:00 Intake Total 1340 ml 750 ml Balance 1340 ml 750 ml Results/Medications Result Diagram: 10/06/1731 10/08/17 0614 Results 24 hrs Laboratory Tests Test 10/08/17 06:14 Sodium Level 142 Potassium Level 5.0 Chloride Level 107 Carbon Dioxide Level 24 Anion Gap 16 Blood Urea Nitrogen 51 H Creatinine 3.08 H Glucose Level 96 Calcium Level 8.8 Medications Current Medications Ticagrelor (Brilinta) 90 mg Q12 PO Last administered on 10/08/17 09:01; Admin Dose 90 MG; Start 10/05/17 at 22:00 Ranolazine (Ranexa) 500 mg BID PO Last administered on 10/08/17 08:55; Admin Dose 500 MG; Start 10/05/17 at 22:00 Tamsulosin HCl (Flomax) 0.4 mg DAILY@21 PO Last administered on 10/07/17 20: 19; Admin Dose 0.4 MG; Start 10/05/17 at 22:00 Famotidine (Pepcid) 20 mg DAILY PO Last administered on 10/08/17 08:56; Admin Dose 20 MG; Start 10/06/17 at 09:00 Isosorbide Mononitrate (Imdur) 30 mg DAILY PO Last administered on 10/08/17 08:57; Admin Dose 30 MG; Start 10/06/17 at 09:00 Lactulose (Enulose) 20 gm BID PRN PO CONSTIPATION; Start 10/05/17 at 22:00 Magnesium Oxide (Mag-Ox 400) 400 mg DAILY PO Last administered on 10/08/17 08 :55; Admin Dose 400 MG; Start 10/06/17 at 09:00 Allopurinol (Zyloprim) 300 mg DAILY PO Last administered on 10/08/17 08:56; Admin Dose 300 MG; Start 10/06/17 at 09:00 Aspirin (Aspirin) 81 mg BID PO Last administered on 10/08/17 08:55; Admin Dose 81 MG; Start 10/05/17 at 22:00; Stop 11/16/17 at 09:01 Aspirin (Aspirin) 81 mg DAILY PO ; Start 11/17/17 at 09:00 Atorvastatin Calcium (Lipitor) 40 mg DAILY@21 PO Last administered on 20:18; Admin Dose 40 MG; Start 10/05/17 at 22:00 Cholecalciferol (Vitamin D) 2,000 unit DAILY PO Last administered on 08:56; Admin Dose 2,000 UNIT; Start 10/06/17 at 09:00 Docusate Sodium (Colace) 100 mg BID PO Last administered on 10/08/17 08:55; Admin Dose 100 MG; Start 10/06/17 at 09:00 Magnesium Hydroxide (Milk Of Mag) 30 ml BID PRN PO CONSTIPATION Last administered on 10/06/17 09:11; Admin Dose 30 ML; Start 10/05/17 at 23:00 Bisacodyl (Dulcolax Supp) 10 mg DAILY PRN [place] CONSTIPATION; Start 10/05/17 at 23:00 Acetaminophen (Tylenol Tab) 650 mg Q4H PRN PO PAIN; Start 10/05/17 at 23:00 Hydralazine HCl (Apresoline) 25 mg Q8H PRN PO SBP>170 Last administered on 21:38; Admin Dose 25 MG; Start 10/07/17 at 21:30; Stop 10/08/17 at 21: 29 Carvedilol (Coreg) 6.25 mg BID PO ; Start 10/08/17 at 21:00 Acetylcysteine (Nac) 600 mg BID PO ; Start 10/08/17 at 10:30; Stop 10/15/17 at 10:29 Assessment/Plan Chief Complaint/Hosp Course 1. hip fracture: s/p surgery 2. CAD 3. HX [place] 4. HX PCI 5. acute on CKD 6/ Dyslipidemia 7. HTN cont ASA cont betablocker post op care DVT prophylaxis as per IM F/U with renal rec. ANH CARRERA MD [facility] Problems: ANH CARRERA MD Oct 08, 2017 13:50
--- NOTE | 2017-10-08 17:26 | PN ---
Date/Time of Note Date/Time of Note DATE: 10/08/17 TIME: 17:17 Assessment/Plan VTE Prophylaxis VTE Prophylaxis Intervention: ambulation Lines/Catheters IV Catheter Type (from [facility]): Saline Lock Urinary Cath still in place: No Assessment/Plan Assessment/Plan 1. CKD Stage IV: Proteinuric with recent baseline around 2.5 mg/dL secondary to hypertensive nephrosclerosis with a history of NSAID use. Now with post-op JONO, suspect ischemic / post op ATN with hypotension. BPs much improved. Renal function continues to improve daily. Continue supportive care and will follow. Avoid nephrotoxins. Dose all meds for his GFR. 2. HTN: Improving. Continue to hold amlodipine for now. Will consider restarting at lower dose, as needed. On low dose coreg given CAD. 3. BPH: On tamsulosin. No voiding issues. Will continue. 4. Vitamin D deficiency: Vitamin D low, but near target. Cont Vit D. PTH pending. 5. Anemia: Mild at baseline. History of normal iron studies normal. Post-op anemia noted. No need for CARLOS at present. 6. L Hip Fx: After mechanical fall. S/p L-hip cephalomedullary nailing . Management per Ortho. Now in inpatient rehab and improving. 7. UTI: Urine cx with staph species from 10/05. Consider trial of oral antibiotics. D/w patient and RN. Subjective 24 Hr Interval Summary Free Text/Dictation Seen for JONO/CKD. No acute events. BPs better. No complaints. Feels better daily. Labs/meds reviewed. Constitutional: no complaints Eyes: no complaints ENT: no complaints Respiratory: no complaints Cardiovascular: no complaints Gastrointestinal: no complaints Genitourinary: no complaints Musculoskeletal: no complaints Skin: no complaints Neurologic: no complaints Endocrine: no complaints Lymphatic: no complaints Psychological: no complaints Immunologic: no complaints Exam/Review of Systems Vital Signs Vitals Vital Signs Date Time Temp Pulse Resp B/P Pulse Ox O2 Delivery O2 Flow Rate FiO2 10/08/17 07:30 98.7 78 20 143/74 95 Intake and Output 10/07/17 10/07/17 10/08/17 15:00 23:00 07:00 Intake Total 1340 ml 750 ml Balance 1340 ml 750 ml Exam Constitutional: alert, oriented, well developed Psych: nl mood/affect Head: atraumatic, normocephalic ENMT: mucosa pink and moist Neck: other (no jvd) Respiratory: clear to auscultation Cardiovascular: regular rate and rhythm Gastrointestinal: non-tender, soft Musculoskeletal: nl extremities to inspection, other (no edema) Neurological: nl mental status Skin: nl turgor Results Result Diagram: 10/06/17 0631 10/08/17 0614 Results 24 hrs Laboratory Tests Test 10/08/17 06:14 Sodium Level 142 Potassium Level 5.0 Chloride Level 107 Carbon Dioxide Level 24 Anion Gap 16 Blood Urea Nitrogen 51 H Creatinine 3.08 H Glucose Level 96 Calcium Level 8.8 Medications Medications Current Medications Ticagrelor (Brilinta) 90 mg Q12 PO Last administered on 10/08/17 09:01; Admin Dose 90 MG; Start 10/05/17 at 22:00 Ranolazine (Ranexa) 500 mg BID PO Last administered on 10/08/17 08:55; Admin Dose 500 MG; Start 10/05/17 at 22:00 Tamsulosin HCl (Flomax) 0.4 mg DAILY@21 PO Last administered on 10/07/17 20: 19; Admin Dose 0.4 MG; Start 10/05/17 at 22:00 Famotidine (Pepcid) 20 mg DAILY PO Last administered on 10/08/17 08:56; Admin Dose 20 MG; Start 10/06/17 at 09:00 Isosorbide Mononitrate (Imdur) 30 mg DAILY PO Last administered on 10/08/17 08:57; Admin Dose 30 MG; Start 10/06/17 at 09:00 Lactulose (Enulose) 20 gm BID PRN PO CONSTIPATION; Start 10/05/17 at 22:00 Magnesium Oxide (Mag-Ox 400) 400 mg DAILY PO Last administered on 10/08/17 08 :55; Admin Dose 400 MG; Start 10/06/17 at 09:00 Allopurinol (Zyloprim) 300 mg DAILY PO Last administered on 10/08/17 08:56; Admin Dose 300 MG; Start 10/06/17 at 09:00 Aspirin (Aspirin) 81 mg BID PO Last administered on 10/08/17 08:55; Admin Dose 81 MG; Start 10/05/17 at 22:00; Stop 11/16/17 at 09:01 Aspirin (Aspirin) 81 mg DAILY PO ; Start 11/17/17 at 09:00 Atorvastatin Calcium (Lipitor) 40 mg DAILY@21 PO Last administered on 20:18; Admin Dose 40 MG; Start 10/05/17 at 22:00 Cholecalciferol (Vitamin D) 2,000 unit DAILY PO Last administered on 08:56; Admin Dose 2,000 UNIT; Start 10/06/17 at 09:00 Docusate Sodium (Colace) 100 mg BID PO Last administered on 10/08/17 08:55; Admin Dose 100 MG; Start 10/06/17 at 09:00 Magnesium Hydroxide (Milk Of Mag) 30 ml BID PRN PO CONSTIPATION Last administered on 10/06/17 09:11; Admin Dose 30 ML; Start 10/05/17 at 23:00 Bisacodyl (Dulcolax Supp) [address] CONSTIPATION; Start 10/05/17 at 23:00 Acetaminophen (Tylenol Tab) 650 mg Q4H PRN PO PAIN; Start 10/05/17 at 23:00 Hydralazine HCl (Apresoline) 25 mg Q8H PRN PO SBP>170 Last administered on 21:38; Admin Dose 25 MG; Start 10/07/17 at 21:30; Stop 10/08/17 at 21: 29 Carvedilol (Coreg) 6.25 mg BID PO ; Start 10/08/17 at 21:00 Acetylcysteine (Nac) 600 mg BID PO ; Start 10/08/17 at 10:30; Stop 10/15/17 at 10:29 ROGERS MCDONALD Oct 08, 2017 17:26
[2017-10-08 19:34] VITALS: BP 127/77; RESP 19
[2017-10-08] MEDS: TAMSULOSIN (SR) 0.4 MG CAP PO SCH (20:56)
[2017-10-08] MEDS: ATORVASTATIN 40 MG TAB PO SCH (20:56)
[2017-10-09 06:36] VITALS: BP 125/56; PULSE 74; RESP 16
[2017-10-09 07:00] VITALS: BP 141/76; RESP 18
[2017-10-09 07:58] LABS: CALCIUM 9.4 mg/dl (8.4-10.2); CREATININE 3.07 mg/dl (0.61-1.24); POTASSIUM 5.3 mmol/L (3.5-5.1)
[2017-10-09] MEDS: RANOLAZINE (SR) 500 MG TAB PO SCH ×2 (09:12→20:55)
[2017-10-09] MEDS: ASPIRIN 81 MG TAB PO SCH ×2 (09:12→20:55)
[2017-10-09] MEDS: ACETYLCYSTEINE 600 MG CAP PO SCH ×2 (09:12→20:54)
[2017-10-09] MEDS: ALLOPURINOL 300 MG TAB PO SCH (09:13)
[2017-10-09] MEDS: CHOLECALCIFEROL 2,000 UNIT CAP PO SCH (09:13)
[2017-10-09] MEDS: ISOSORBIDE MONONITRATE(SR)30 MG TAB PO SCH (09:13)
[2017-10-09] MEDS: FAMOTIDINE 20 MG TAB PO SCH (09:14)
[2017-10-09] MEDS: TICAGRELOR 90 MG TABLET PO SCH ×2 (09:14→20:57)
[2017-10-09] MEDS: DOCUSATE SODIUM 100 MG CAP PO SCH ×2 (09:14→21:00)
[2017-10-09] MEDS: MAGNESIUM OXIDE 400 MG TAB PO SCH (09:14)
--- NOTE | 2017-10-09 12:46 | PN ---
Date/Time of Note Date/Time of Note DATE: 10/09/17 TIME: 12:41 Assessment/Plan VTE Prophylaxis VTE Prophylaxis Intervention: heparin Lines/Catheters IV [facility] Type (from [facility] Saline Lock Urinary Cath still in place: No Assessment/Plan Problems: (1) UTI (lower urinary tract infection) Status: Acute Comment: Urine culture has coag negative staph. I believe this was a minor exposure will give him a single dose of antibiotic that this is sensitive to as an IV dose. Given his renal function this will linger nicely given her prolonged therapeutic benefit (2) Diastolic dysfunction Status: Chronic Comment: Uptitrate beta blockade (3) Essential hypertension Status: Chronic Comment: Uptitrate beta blockade (4) Kidney disease, chronic, stage IV (GFR 15-29 ml/min) Status: Chronic Comment: Noted. Renal dose adjustment of medications avoid nephrotoxic agents and given that he does have BPH with obstruction adjust of the BPH medications (5) Gout Status: Chronic Comment: Stable on his current dosage of allopurinol which has his uric acid at 6.4. Do not down titrate the dose Qualifiers: Gout site: unspecified site Gout etiology: unspecified cause Chronicity: chronic Presence of tophus: without tophus Qualified Code: [id number].9XX0 - Chronic gout without tophus, unspecified cause, unspecified site (6) Hyperlipidemia Status: Chronic Comment: Stable on medications Qualifiers: Hyperlipidemia type: pure hypercholesterolemia Qualified Code: E78.00 - Pure hypercholesterolemia (7) Benign prostatic hyperplasia Status: Chronic Comment: Increase the tamsulosin given the postvoid residual 150 and add in finasteride Qualifiers: Lower urinary tract symptom presence: unspecified whether lower urinary tract symptoms present Qualified Code: N40.0 - Benign prostatic hyperplasia, unspecified whether lower urinary tract symptoms present (8) Coronary artery disease Status: Chronic Comment: Quiescent fortunately Qualifiers: Coronary Disease-Associated Artery/Lesion type: [place] artery [place] vs. transplanted heart: [place] heart Associated angina: without angina Qualified Code: I25.10 - Coronary artery disease involving [place] coronary artery of [place] heart without angina pectoris (9) S/p left hip fracture Status: Acute Comment: Status post ORIF and going through rehab nicely Subjective 24 Hr Interval Summary Free Text/Dictation Patient sitting up enjoying lunch. Offers no complaints. He is very concerned about making sure not to do anything that might further injure his kidneys Constitutional: no complaints Respiratory: no complaints Cardiovascular: no complaints Gastrointestinal: no complaints Genitourinary: no complaints Exam/Review of Systems Vital Signs Vitals Vital Signs Date Time Temp Pulse Resp B/P Pulse Ox O2 Delivery O2 Flow Rate FiO2 10/09/17 07:00 98.9 77 18 141/76 97 Intake and Output 10/08/17 10/08/17 10/09/17 15:00 23:00 07:00 Intake Total 1600 ml Balance 1600 ml Exam Constitutional: alert, oriented Neck: non-tender, supple Respiratory: clear to auscultation, normal air movement Cardiovascular: nl pulses, regular rate and rhythm Gastrointestinal: nl liver, spleen, non-tender, soft Results Result Diagram: 10/06/1763010/09/17 0619 Results 24 hrs Laboratory Tests Test 10/09/17 06:19 Sodium Level 141 Potassium Level 5.3 H Chloride Level 109 Carbon Dioxide Level 24 Anion Gap 13 Blood Urea Nitrogen 57 H Creatinine 3.07 H Glucose Level 95 Calcium Level 9.4 Medications Medications Current Medications Ticagrelor (Brilinta) 90 mg Q12 PO Last administered on 10/09/17 09:14; Admin Dose 90 MG; Start 10/05/17 at 22:00 Ranolazine (Ranexa) 500 mg BID PO Last administered on 10/09/17 09:12; Admin Dose 500 MG; Start 10/05/17 at 22:00 Tamsulosin HCl (Flomax) 0.4 mg DAILY@21 PO Last administered on 10/08/17 20: 56; Admin Dose 0.4 MG; Start 10/05/17 at 22:00 Famotidine (Pepcid) 20 mg DAILY PO Last administered on 10/09/17 09:14; Admin Dose 20 MG; Start 10/06/17 at 09:00 Isosorbide Mononitrate (Imdur) 30 mg DAILY PO Last administered on 10/09/17 09:13; Admin Dose 30 MG; Start 10/06/17 at 09:00 Lactulose (Enulose) 20 gm BID PRN PO CONSTIPATION; Start 10/05/17 at 22:00 Magnesium Oxide (Mag-Ox 400) 400 mg DAILY PO Last administered on 10/09/17 09 :14; Admin Dose 400 MG; Start 10/06/17 at 09:00 Allopurinol (Zyloprim) 300 mg DAILY PO Last administered on 10/09/17 09:13; Admin Dose 300 MG; Start 10/06/17 at 09:00 Aspirin (Aspirin) 81 mg BID PO Last administered on 10/09/17 09:12; Admin Dose 81 MG; Start 10/05/17 at 22:00; Stop 11/16/17 at 09:01 Aspirin (Aspirin) 81 mg DAILY PO ; Start 11/17/17 at 09:00 Atorvastatin Calcium (Lipitor) 40 mg DAILY@21 PO Last administered on 20:56; Admin Dose 40 MG; Start 10/05/17 at 22:00 Cholecalciferol (Vitamin D) 2,000 unit DAILY PO Last administered on 09:13; Admin Dose 2,000 UNIT; Start 10/06/17 at 09:00 Docusate Sodium (Colace) 100 mg BID PO Last administered on 10/09/17 09:14; Admin Dose 100 MG; Start 10/06/17 at 09:00 Magnesium Hydroxide (Milk Of Mag) 30 ml BID PRN PO CONSTIPATION Last administered on 10/06/17 09:11; Admin Dose 30 ML; Start 10/05/17 at 23:00 Bisacodyl (Dulcolax Supp) 10 mg DAILY PRN [place] CONSTIPATION; Start 10/05/17 at 23:00 Acetaminophen (Tylenol Tab) 650 mg Q4H PRN PO PAIN; Start 10/05/17 at 23:00 Carvedilol (Coreg) 6.25 mg BID PO Last administered on 10/09/17 09:15; Admin Dose 6.25 MG; Start 10/08/17 at 21:00 Acetylcysteine (Nac) 600 mg BID PO Last administered on 10/09/17 09:12; Admin Dose 600 MG; Start 10/08/17 at 10:30; Stop 10/15/17 at 10:29 SERGEY CALDERON MD Oct 09, 2017 12:46
--- NOTE | 2017-10-09 12:47 | CONS ---
Date/Time of Note Date/Time of Note DATE: 10/09/17 TIME: 12:46 Consult Date/Type/Reason Admit Date/Time Oct 05, 2017 at 21:14 Type of Consultation: cardiology Subjective cardiology follow up note: S: D/W STAFF pt with no chest pain or pressure. s/p hip surgery 10/03/17 . now in rehab. pt is able to do PT O: General: no acute distress HEENT: NC/AT. pupils are equal. round. NECK: NO JVD. no stridor. CV: RRR. systolic murmur; no gallop or rubs. PULM: no wheezing or rhonchi. GI: SOFT, NT, ND, no rebound or guarding Extremity: trace B/L LE edema. no clubbing. s/p left leg surgery neuro: awake and alert, OX3. Psych: calm and pleasant rectal: deferred : normal male Objective Vital Signs Date Time Temp Pulse Resp B/P Pulse Ox O2 Delivery O2 Flow Rate FiO2 10/09/17 07:00 98.9 77 18 141/76 97 Intake and Output 10/08/17 10/08/17 10/09/17 15:00 23:00 07:00 Intake Total 1600 ml Balance 1600 ml Results/Medications Result Diagram: 10/06/17 0631 10/09/17 0619 Results 24 hrs Laboratory Tests Test 10/09/17 06:19 Sodium Level 141 Potassium Level 5.3 H Chloride Level 109 Carbon Dioxide Level 24 Anion Gap 13 Blood Urea Nitrogen 57 H Creatinine 3.07 H Glucose Level 95 Calcium Level 9.4 Medications Current Medications Ticagrelor (Brilinta) 90 mg Q12 PO Last administered on 10/09/17 09:14; Admin Dose 90 MG; Start 10/05/17 at 22:00 Ranolazine (Ranexa) 500 mg BID PO Last administered on 10/09/17 09:12; Admin Dose 500 MG; Start 10/05/17 at 22:00 Famotidine (Pepcid) 20 mg DAILY PO Last administered on 10/09/17 09:14; Admin Dose 20 MG; Start 10/06/17 at 09:00 Isosorbide Mononitrate (Imdur) 30 mg DAILY PO Last administered on 10/09/17 09:13; Admin Dose 30 MG; Start 10/06/17 at 09:00 Lactulose (Enulose) 20 gm BID PRN PO CONSTIPATION; Start 10/05/17 at 22:00 Magnesium Oxide (Mag-Ox 400) 400 mg DAILY PO Last administered on 10/09/17 09 :14; Admin Dose 400 MG; Start 10/06/17 at 09:00 Allopurinol (Zyloprim) 300 mg DAILY PO Last administered on 10/09/17 09:13; Admin Dose 300 MG; Start 10/06/17 at 09:00 Aspirin (Aspirin) 81 mg BID PO Last administered on 10/09/17 09:12; Admin Dose 81 MG; Start 10/05/17 at 22:00; Stop 11/16/17 at 09:01 Aspirin (Aspirin) 81 mg DAILY PO ; Start 11/17/17 at 09:00 Atorvastatin Calcium (Lipitor) 40 mg DAILY@21 PO Last administered on 20:56; Admin Dose 40 MG; Start 10/05/17 at 22:00 Cholecalciferol (Vitamin D) 2,000 unit DAILY PO Last administered on 09:13; Admin Dose 2,000 UNIT; Start 10/06/17 at 09:00 Docusate Sodium (Colace) 100 mg BID PO Last administered on 10/09/17 09:14; Admin Dose 100 MG; Start 10/06/17 at 09:00 Magnesium Hydroxide (Milk Of Mag) 30 ml BID PRN PO CONSTIPATION Last administered on 10/06/17 09:11; Admin Dose 30 ML; Start 10/05/17 at 23:00 Bisacodyl (Dulcolax Supp) 10 mg DAILY PRN [place] CONSTIPATION; Start 10/05/17 at 23:00 Acetaminophen (Tylenol Tab) 650 mg Q4H PRN PO PAIN; Start 10/05/17 at 23:00 Acetylcysteine (Nac) 600 mg BID PO Last administered on 10/09/17 09:12; Admin Dose 600 MG; Start 10/08/17 at 10:30; Stop 10/15/17 at 10:29 Carvedilol (Coreg) 9.375 mg BID PO ; Start 10/09/17 at 21:00 Tamsulosin HCl (Flomax) 0.8 mg DAILY@21 PO ; Start 10/09/17 at 21:00 Finasteride 5 mg 5 mg DAILY PO ; Start 10/09/17 at 13:00 Cefazolin Sodium/ Dextrose (Ancef 2 Gm/50 ml (Pmx)) 50 ml @ 100 mls/hr ONCE ONCE IVPB ; Start 10/09/17 at 13:00; Stop 10/09/17 at 13:29; Status UNV Assessment/Plan Chief Complaint/Hosp Course 1. hip fracture: s/p surgery 2. CAD 3. HX CT 4. HX PCI 5. acute on CKD 6/ Dyslipidemia 7. HTN cont ASA cont betablocker post op care DVT prophylaxis as per IM F/U with renal rec. ANH CARRERA MD [facility] Problems: ANH CARRERA MD Oct 09, 2017 12:47
[2017-10-09] MEDS ORDERED: CEFAZOLIN 2 GM/50 ML (PMX) 50 ML IVPB ONE (13:00)
[2017-10-09] MEDS: FINASTERIDE 5 MG TAB PO SCH (13:33)
[2017-10-09 14:00] VITALS: BP 160/72; RESP 18
[2017-10-09 20:13] VITALS: BP 146/75; RESP 18
[2017-10-09] MEDS: TAMSULOSIN (SR) 0.4 MG CAP PO SCH (20:53)
[2017-10-09] MEDS: ATORVASTATIN 40 MG TAB PO SCH (20:55)
[2017-10-10 02:00] VITALS: BP 125/65; PULSE 75; RESP 18
[2017-10-10 07:00] VITALS: BP 117/64; RESP 18
[2017-10-10] MEDS: RANOLAZINE (SR) 500 MG TAB PO SCH ×2 (09:11→21:06)
[2017-10-10] MEDS: ISOSORBIDE MONONITRATE(SR)30 MG TAB PO SCH (09:12)
[2017-10-10] MEDS: FAMOTIDINE 20 MG TAB PO SCH (09:12)
[2017-10-10] MEDS: DOCUSATE SODIUM 100 MG CAP PO SCH ×2 (09:13→21:07)
[2017-10-10] MEDS: ACETYLCYSTEINE 600 MG CAP PO SCH ×2 (09:13→21:07)
[2017-10-10] MEDS: ASPIRIN 81 MG TAB PO SCH ×2 (09:13→21:07)
[2017-10-10] MEDS: TICAGRELOR 90 MG TABLET PO SCH ×2 (09:13→21:25)
[2017-10-10] MEDS: ALLOPURINOL 300 MG TAB PO SCH (09:13)
[2017-10-10] MEDS: MAGNESIUM OXIDE 400 MG TAB PO SCH (09:13)
[2017-10-10] MEDS: FINASTERIDE 5 MG TAB PO SCH (09:13)
[2017-10-10] MEDS: CHOLECALCIFEROL 2,000 UNIT CAP PO SCH (09:13)
--- NOTE | 2017-10-10 11:19 | PN ---
Date/Time of Note Date/Time of Note DATE: 10/10/17 TIME: 11:18 Assessment/Plan VTE Prophylaxis VTE Prophylaxis Intervention: ambulation Lines/Catheters IV Catheter Type (from [facility]): Saline Lock Urinary Cath still in place: No Assessment/Plan Assessment/Plan 1. CKD Stage IV: Proteinuric with recent baseline around 2.5 mg/dL secondary to hypertensive nephrosclerosis with a history of NSAID use. Has sustained post -op JONO, suspect ischemic / post op ATN with hypotension. BPs improved, renal function improved/stabilized, but not yet back at his baseline. Will continue supportive care and follow. 2. HTN: With post op hypotension, resolved. Continue to hold amlodipine for now. Continue coreg given CAD, recently uptitrated with acceptable BPs. 3. BPH: On tamsulosin, uptitrated, finasteride added for some urinary retention. 4. Vitamin D deficiency: Vitamin D low, but near target. Cont Vit D and follow levels. 5. Anemia: Mild at baseline. History of normal iron studies normal. Post-op anemia noted. No need for CARLOS at present. Will check CBC tomorrow. 6. L Hip Fx: After mechanical fall. S/p L-hip cephalomedullary nailing . Management per Ortho. Now in inpatient rehab and improving. 7. UTI: Urine cx with staph species from 10/05. Abx noted. 8. Hyperkalemia: Mild. Recheck labs today. Renal diet with dietary education. PRN kayexalate. Will follow up on today's labs. D/w patient and RN. Subjective 24 Hr Interval Summary Constitutional: no complaints Eyes: no complaints ENT: no complaints Respiratory: no complaints Cardiovascular: no complaints Gastrointestinal: no complaints Genitourinary: no complaints Musculoskeletal: no complaints Skin: no complaints Exam/Review of Systems Vital Signs Vitals Vital Signs Date Time Temp Pulse Resp B/P Pulse Ox O2 Delivery O2 Flow Rate FiO2 10/10/17 07:00 98.2 73 18 117/64 95 Intake and Output 10/09/17 10/09/17 10/10/17 15:00 23:00 07:00 Intake Total 50 ml 2400 ml Output Total 2550 ml 1000 ml Balance 50 ml -150 ml -1000 ml Exam Constitutional: alert, oriented Psych: nl mood/affect Head: normocephalic ENMT: mucosa pink and moist Neck: other (no jvd) Respiratory: clear to auscultation Cardiovascular: regular rate and rhythm Gastrointestinal: soft Musculoskeletal: other (no edema) Extremities: normal pulses Neurological: nl mental status Results Result Diagram: 10/06/17 0631 10/09/17 0619 Medications Medications Current Medications Ticagrelor (Brilinta) 90 mg Q12 PO Last administered on 10/10/17 09:13; Admin Dose 90 MG; Start 10/05/17 at 22:00 Ranolazine (Ranexa) 500 mg BID PO Last administered on 10/10/17 09:11; Admin Dose 500 MG; Start 10/05/17 at 22:00 Famotidine (Pepcid) 20 mg DAILY PO Last administered on 10/10/17 09:12; Admin Dose 20 MG; Start 10/06/17 at 09:00 Isosorbide Mononitrate (Imdur) 30 mg DAILY PO Last administered on 10/10/17 09:12; Admin Dose 30 MG; Start 10/06/17 at 09:00 Lactulose (Enulose) 20 gm BID PRN PO CONSTIPATION; Start 10/05/17 at 22:00 Magnesium Oxide (Mag-Ox 400) 400 mg DAILY PO Last administered on 10/10/17 09 :13; Admin Dose 400 MG; Start 10/06/17 at 09:00 Allopurinol (Zyloprim) 300 mg DAILY PO Last administered on 10/10/17 09:13; Admin Dose 300 MG; Start 10/06/17 at 09:00 Aspirin (Aspirin) 81 mg BID PO Last administered on 10/10/17 09:13; Admin Dose 81 MG; Start 10/05/17 at 22:00; Stop 11/16/17 at 09:01 Aspirin (Aspirin) 81 mg DAILY PO ; Start 11/17/17 at 09:00 Atorvastatin Calcium (Lipitor) 40 mg DAILY@21 PO Last administered on 20:55; Admin Dose 40 MG; Start 10/05/17 at 22:00 Cholecalciferol (Vitamin D) 2,000 unit DAILY PO Last administered on 09:13; Admin Dose 2,000 UNIT; Start 10/06/17 at 09:00 Docusate Sodium (Colace) 100 mg BID PO Last administered on 10/10/17 09:13; Admin Dose 100 MG; Start 10/06/17 at 09:00 Magnesium Hydroxide (Milk Of Mag) 30 ml BID PRN PO CONSTIPATION Last administered on 10/06/17 09:11; Admin Dose 30 ML; Start 10/05/17 at 23:00 Bisacodyl (Dulcolax Supp) 10 mg DAILY PRN [place] CONSTIPATION; Start 10/05/17 at 23:00 Acetaminophen (Tylenol Tab) 650 mg Q4H PRN PO PAIN; Start 10/05/17 at 23:00 Acetylcysteine (Nac) 600 mg BID PO Last administered on 10/10/17 09:13; Admin Dose 600 MG; Start 10/08/17 at 10:30; Stop 10/15/17 at 10:29 Carvedilol (Coreg) 9.375 mg BID PO Last administered on 10/09/17 20:54; Admin Dose 9.375 MG; Start 10/09/17 at 21:00 Tamsulosin HCl (Flomax) 0.8 mg DAILY@21 PO Last administered on 10/09/17 20: 53; Admin Dose 0.8 MG; Start 10/09/17 at 21:00 Finasteride (Proscar) 5 mg DAILY PO Last administered on 10/10/17 09:13; Admin Dose 5 MG; Start 10/09/17 at 13:00 ROGERS MCDONALD Oct 10, 2017 11:19
[2017-10-10 12:16] LABS: CALCIUM 8.9 mg/dl (8.4-10.2); CREATININE 3.15 mg/dl (0.61-1.24); POTASSIUM 4.4 mmol/L (3.5-5.1)
--- NOTE | 2017-10-10 12:43 | CONS ---
Date/Time of Note Date/Time of Note DATE: 10/10/17 TIME: 12:43 Consult Date/Type/Reason Admit Date/Time Oct 05, 2017 at 21:14 Type of Consultation: cardiology Objective Vital Signs Date Time Temp Pulse Resp B/P Pulse Ox O2 Delivery O2 Flow Rate FiO2 10/10/17 07:00 98.2 73 18 117/64 95 Intake and Output 10/09/17 10/09/17 10/10/17 14:59 22:59 06:59 Intake Total 50 ml 2400 ml Output Total 2550 ml 1000 ml Balance 50 ml -150 ml -1000 ml INTERDISCIPLINARY TEAM CONFERENCE BOWEL- Cont BLADDER-Cont SKIN- intact OT- DRESSINGsba BATHING-sba TOILETING-sba PT- BED MOBILITY-sba TRANSFERS-sba AMBULATION-sba 150 feet A/P- Interdisciplinary team conference held today. Please see interdisciplinary sheet. Working toward d.c. on 10/12 with post discharge follow up of physical therapy, occupational therapy. Results/Medications Result Diagram: 10/06/17 0631 10/09/17 0619 Medications Current Medications Ticagrelor (Brilinta) 90 mg Q12 PO Last administered on 10/10/17 09:13; Admin Dose 90 MG; Start 10/05/17 at 22:00 Ranolazine (Ranexa) 500 mg BID PO Last administered on 10/10/17 09:11; Admin Dose 500 MG; Start 10/05/17 at 22:00 Famotidine (Pepcid) 20 mg DAILY PO Last administered on 10/10/17 09:12; Admin Dose 20 MG; Start 10/06/17 at 09:00 Isosorbide Mononitrate (Imdur) 30 mg DAILY PO Last administered on 10/10/17 09:12; Admin Dose 30 MG; Start 10/06/17 at 09:00 Lactulose (Enulose) 20 gm BID PRN PO CONSTIPATION; Start 10/05/17 at 22:00 Magnesium Oxide (Mag-Ox 400) 400 mg DAILY PO Last administered on 10/10/17 09 :13; Admin Dose 400 MG; Start 10/06/17 at 09:00 Allopurinol (Zyloprim) 300 mg DAILY PO Last administered on 10/10/17 09:13; Admin Dose 300 MG; Start 10/06/17 at 09:00 Aspirin (Aspirin) 81 mg BID PO Last administered on 10/10/17 09:13; Admin Dose 81 MG; Start 10/05/17 at 22:00; Stop 11/16/17 at 09:01 Aspirin (Aspirin) 81 mg DAILY PO ; Start 11/17/17 at 09:00 Atorvastatin Calcium (Lipitor) 40 mg DAILY@21 PO Last administered on 20:55; Admin Dose 40 MG; Start 10/05/17 at 22:00 Cholecalciferol (Vitamin D) 2,000 unit DAILY PO Last administered on 09:13; Admin Dose 2,000 UNIT; Start 10/06/17 at 09:00 Docusate Sodium (Colace) 100 mg BID PO Last administered on 10/10/17 09:13; Admin Dose 100 MG; Start 10/06/17 at 09:00 Magnesium Hydroxide (Milk Of Mag) 30 ml BID PRN PO CONSTIPATION Last administered on 10/06/17 09:11; Admin Dose 30 ML; Start 10/05/17 at 23:00 Bisacodyl (Dulcolax Supp) 10 mg DAILY PRN [place] CONSTIPATION; Start 10/05/17 at 23:00 Acetaminophen (Tylenol Tab) 650 mg Q4H PRN PO PAIN; Start 10/05/17 at 23:00 Acetylcysteine (Nac) 600 mg BID PO Last administered on 10/10/17 09:13; Admin Dose 600 MG; Start 10/08/17 at 10:30; Stop 10/15/17 at 10:29 Carvedilol (Coreg) 9.375 mg BID PO Last administered on 10/09/17 20:54; Admin Dose 9.375 MG; Start 10/09/17 at 21:00 Tamsulosin HCl (Flomax) 0.8 mg DAILY@21 PO Last administered on 10/09/17 20: 53; Admin Dose 0.8 MG; Start 10/09/17 at 21:00 Finasteride (Proscar) 5 mg DAILY PO Last administered on 10/10/17 09:13; Admin Dose 5 MG; Start 10/09/17 at 13:00 ALYCIA MYERS MD Oct 10, 2017 12:43
[2017-10-10 14:00] VITALS: BP 105/55; RESP 18
--- NOTE | 2017-10-10 15:49 | CONS ---
Date/Time of Note Date/Time of Note DATE: 10/10/17 TIME: 15:47 Assessment/Plan Assessment/Plan Chief Complaint/Hosp Course 67-year-old male with a history of coronary artery disease with multiple stent placed in the past, who is transferred to acute rehabilitation unit for further complex interdisciplinary rehab activities after patient had left hip cephalo- medullary nailing. 1. Mechanical fall with left closed displaced femoral neck fracture. Status post Left hip cephalomedullary nailing -10/03/2017. -Continue PT/OT eval and treatment. -Follow-up with orthopedics in 1-2 weeks. 2. Coronary artery disease with multiple PCI with multiple stents. -Continue aspirin/melena/beta-trinity/nitrates/statin. 3. Acute on CKD, Stage IV.Baseline creatinine 2.5-2.9. -Follow-up with nephrology recommendations. -Monitor renal function closely. 4. Hypertension: Stable. -Continue antihypertensives with adjustment as needed 5. Gout -on allopurinol 6. BPH -On Flomax and Proscar. 7. Vitamin D deficiency. -Continue replacement. 8. Constipation. Resolved. -Continue stool softeners. Discontinue laxatives. DVT prophylaxis: Aspirin 81 mg twice daily along with Brilinta per orthopedic recommendations. Microbiology urine culture reviewed and it is more likely contaminated urine specimen. There is no need to continue antibiotics at this time. Patient was seen in collaboration with . Problems: Consultation Date/Type/Reason Admit Date/Time Oct 05, 2017 at 21:14 Initial Consult Date Type of Consultation: cardiology 24 HR Interval Summary Free Text/Dictation No acute overnight episodes. Exam/Review of Systems Vital Signs Vitals Vital Signs Date Time Temp Pulse Resp B/P Pulse Ox O2 Delivery O2 Flow Rate FiO2 10/10/17 14:00 98.4 77 18 105/55 96 Intake and Output 10/09/17 10/09/17 10/10/17 15:00 23:00 07:00 Intake Total 50 ml 2400 ml Output Total 2550 ml 1000 ml Balance 50 ml -150 ml -1000 ml Exam General: Well developed,adequately built, not in any acute distress . HEENT: Normocephalic, Atraumatic, No laceration or hematoma; Eyes: PEERL, Conjunctiva clear, Anicteric sclera Neck: Supple without any lymphadenopathy, nontender, no JVD, no carotid bruits, trachea midline, no thyromegaly Cardiac: S1, S2 auscultated, regular rhythm and rate, no mumurs or gallop Pulmonary: Normal respiratory effort. Chest clear to auscultation bilaterally, no adventitious breath sounds GI: Protuberant abdomen. With mild distention.. Soft, non tender, no masses, no rebound tenderness or guarding. Bowel sounds active on all four quadrants Genitourinary: Deferred Extremities: Left hip fracture with surgical incision/dressing intact. No cyanosis, clubbing, or edema. Pulses [2+] bilaterally. Full ROM on all four extremities. No focal weakness appreciated. Neurologic: Alert to person, place, time, and situation. Affect appropriate, intact sensation. Skin: Clean,dry, and intact. No ecchymosis, no rashes, or lesions Results Result Diagram: 10/06/17 0631 10/10/17 1056 Results 24 hrs Laboratory Tests Test 10/10/17 10:56 Sodium Level 137 Potassium Level 4.4 Chloride Level 104 Carbon Dioxide Level 21 Anion Gap 16 Blood Urea Nitrogen 52 H Creatinine 3.15 H Glucose Level 141 # Calcium Level 8.9 Medications Medications Current Medications Ticagrelor (Brilinta) 90 mg Q12 PO Last administered on 10/10/17 09:13; Admin Dose 90 MG; Start 10/05/17 at 22:00 Ranolazine (Ranexa) 500 mg BID PO Last administered on 10/10/17 09:11; Admin Dose 500 MG; Start 10/05/17 at 22:00 Famotidine (Pepcid) 20 mg DAILY PO Last administered on 10/10/17 09:12; Admin Dose 20 MG; Start 10/06/17 at 09:00 Isosorbide Mononitrate (Imdur) 30 mg DAILY PO Last administered on 10/10/17 09:12; Admin Dose 30 MG; Start 10/06/17 at 09:00 Lactulose (Enulose) 20 gm BID PRN PO CONSTIPATION; Start 10/05/17 at 22:00 Magnesium Oxide (Mag-Ox 400) 400 mg DAILY PO Last administered on 10/10/17 09 :13; Admin Dose 400 MG; Start 10/06/17 at 09:00 Allopurinol (Zyloprim) 300 mg DAILY PO Last administered on 10/10/17 09:13; Admin Dose 300 MG; Start 10/06/17 at 09:00 Aspirin (Aspirin) 81 mg BID PO Last administered on 10/10/17 09:13; Admin Dose 81 MG; Start 10/05/17 at 22:00; Stop 11/16/17 at 09:01 Aspirin (Aspirin) 81 mg DAILY PO ; Start 11/17/17 at 09:00 Atorvastatin Calcium (Lipitor) 40 mg DAILY@21 PO Last administered on 20:55; Admin Dose 40 MG; Start 10/05/17 at 22:00 Cholecalciferol (Vitamin D) 2,000 unit DAILY PO Last administered on 09:13; Admin Dose 2,000 UNIT; Start 10/06/17 at 09:00 Docusate Sodium (Colace) 100 mg BID PO Last administered on 10/10/17 09:13; Admin Dose 100 MG; Start 10/06/17 at 09:00 Magnesium Hydroxide (Milk Of Mag) 30 ml BID PRN PO CONSTIPATION Last administered on 10/06/17 09:11; Admin Dose 30 ML; Start 10/05/17 at 23:00 Bisacodyl (Dulcolax Supp) 10 mg DAILY PRN [place] CONSTIPATION; Start 10/05/17 at 23:00 Acetaminophen (Tylenol Tab) 650 mg Q4H PRN PO PAIN; Start 10/05/17 at 23:00 Acetylcysteine (Nac) 600 mg BID PO Last administered on 10/10/17 09:13; Admin Dose 600 MG; Start 10/08/17 at 10:30; Stop 10/15/17 at 10:29 Carvedilol (Coreg) 9.375 mg BID PO Last administered on 10/09/17 20:54; Admin Dose 9.375 MG; Start 10/09/17 at 21:00 Tamsulosin HCl (Flomax) 0.8 mg DAILY@21 PO Last administered on 10/09/17 20: 53; Admin Dose 0.8 MG; Start 10/09/17 at 21:00 Finasteride (Proscar) 5 mg DAILY PO Last administered on 10/10/17 09:13; Admin Dose 5 MG; Start 10/09/17 at 13:00 ADIEL SOLO NP Oct 10, 2017 15:49
--- NOTE | 2017-10-10 18:34 | CONS ---
Date/Time of Note Date/Time of Note DATE: 10/10/17 TIME: 18:34 Consult Date/Type/Reason Admit Date/Time Oct 05, 2017 at 21:14 Type of Consultation: cardiology Subjective cardiology follow up note: S: D/W STAFF pt with no chest pain or pressure. s/p hip surgery 10/03/17 . now in rehab. pt is able to do PT O: General: no acute distress HEENT: NC/AT. pupils are equal. round. NECK: NO JVD. no stridor. CV: RRR. systolic murmur; no gallop or rubs. PULM: no wheezing or rhonchi. GI: SOFT, NT, ND, no rebound or guarding Extremity: trace B/L LE edema. no clubbing. s/p left leg surgery neuro: awake and alert, OX3. Psych: calm and pleasant rectal: deferred : normal male Objective Vital Signs Date Time Temp Pulse Resp B/P Pulse Ox O2 Delivery O2 Flow Rate FiO2 10/10/17 14:00 98.4 77 18 105/55 96 Intake and Output 10/09/17 10/09/17 10/10/17 14:59 22:59 06:59 Intake Total 50 ml 2400 ml Output Total 2550 ml 1000 ml Balance 50 ml -150 ml -1000 ml Results/Medications Result Diagram: 10/06/17 0631 10/10/17 1056 Results 24 hrs Laboratory Tests Test 10/10/17 10:56 Sodium Level 137 Potassium Level 4.4 Chloride Level 104 Carbon Dioxide Level 21 Anion Gap 16 Blood Urea Nitrogen 52 H Creatinine 3.15 H Glucose Level 141 # Calcium Level 8.9 Medications Current Medications Ticagrelor (Brilinta) 90 mg Q12 PO Last administered on 10/10/17 09:13; Admin Dose 90 MG; Start 10/05/17 at 22:00 Ranolazine (Ranexa) 500 mg BID PO Last administered on 10/10/17 09:11; Admin Dose 500 MG; Start 10/05/17 at 22:00 Famotidine (Pepcid) 20 mg DAILY PO Last administered on 10/10/17 09:12; Admin Dose 20 MG; Start 10/06/17 at 09:00 Isosorbide Mononitrate (Imdur) 30 mg DAILY PO Last administered on 10/10/17 09:12; Admin Dose 30 MG; Start 10/06/17 at 09:00 Lactulose (Enulose) 20 gm BID PRN PO CONSTIPATION; Start 10/05/17 at 22:00 Magnesium Oxide (Mag-Ox 400) 400 mg DAILY PO Last administered on 10/10/17 09 :13; Admin Dose 400 MG; Start 10/06/17 at 09:00 Allopurinol (Zyloprim) 300 mg DAILY PO Last administered on 10/10/17 09:13; Admin Dose 300 MG; Start 10/06/17 at 09:00 Aspirin (Aspirin) 81 mg BID PO Last administered on 10/10/17 09:13; Admin Dose 81 MG; Start 10/05/17 at 22:00; Stop 11/16/17 at 09:01 Aspirin (Aspirin) 81 mg DAILY PO ; Start 11/17/17 at 09:00 Atorvastatin Calcium (Lipitor) 40 mg DAILY@21 PO Last administered on 20:55; Admin Dose 40 MG; Start 10/05/17 at 22:00 Cholecalciferol (Vitamin D) 2,000 unit DAILY PO Last administered on 09:13; Admin Dose 2,000 UNIT; Start 10/06/17 at 09:00 Docusate Sodium (Colace) 100 mg BID PO Last administered on 10/10/17 09:13; Admin Dose 100 MG; Start 10/06/17 at 09:00 Magnesium Hydroxide (Milk Of Mag) 30 ml BID PRN PO CONSTIPATION Last administered on 10/06/17 09:11; Admin Dose 30 ML; Start 10/05/17 at 23:00 Bisacodyl (Dulcolax Supp) 10 mg DAILY PRN [place] CONSTIPATION; Start 10/05/17 at 23:00 Acetaminophen (Tylenol Tab) 650 mg Q4H PRN PO PAIN; Start 10/05/17 at 23:00 Acetylcysteine (Nac) 600 mg BID PO Last administered on 10/10/17 09:13; Admin Dose 600 MG; Start 10/08/17 at 10:30; Stop 10/15/17 at 10:29 Carvedilol (Coreg) 9.375 mg BID PO Last administered on 10/09/17 20:54; Admin Dose 9.375 MG; Start 10/09/17 at 21:00 Tamsulosin HCl (Flomax) 0.8 mg DAILY@21 PO Last administered on 10/09/17 20: 53; Admin Dose 0.8 MG; Start 10/09/17 at 21:00 Finasteride (Proscar) 5 mg DAILY PO Last administered on 10/10/17 09:13; Admin Dose 5 MG; Start 10/09/17 at 13:00 Assessment/Plan Chief Complaint/Hosp Course 1. hip fracture: s/p surgery 2. CAD 3. HX AK 4. HX PCI 5. acute on CKD 6/ Dyslipidemia 7. HTN cont ASA cont betablocker post op care DVT prophylaxis as per IM F/U with renal rec. ANH CARRERA MD [facility] Problems: ANH CARRERA MD Oct 10, 2017 18:34
[2017-10-10 20:00] VITALS: BP 136/71; RESP 18
[2017-10-10] MEDS: ATORVASTATIN 40 MG TAB PO SCH (21:07)
[2017-10-10] MEDS: TAMSULOSIN (SR) 0.4 MG CAP PO SCH (21:08)
[2017-10-11 02:00] VITALS: BP 126/79; RESP 18
--- NOTE | 2017-10-11 07:25 | PN ---
Date/Time of Note Date/Time of Note DATE: 10/11/17 TIME: 07:21 Assessment/Plan VTE Prophylaxis VTE Prophylaxis Intervention: ambulation Lines/Catheters IV [facility]ter Type (from [email or web address] Saline Lock Urinary Cath still in place: No Assessment/Plan Assessment/Plan 1. CKD Stage IV: Proteinuric with recent baseline around 2.5 mg/dL secondary to hypertensive nephrosclerosis with a history of NSAID use. Non oliguric post- op JONO, suspect secondary to ischemic / post op ATN with hypotension. BPs improved, renal function improved/stabilized, but not yet back at his baseline. Will continue supportive care and follow. 2. HTN: With post op hypotension, resolved. Continue to hold amlodipine for now. Continue Coreg given CAD, recently uptitrated with BPs at goal. 3. BPH: On tamsulosin, uptitrated, finasteride added for some urinary retention. No voiding issues at present. Will follow. 4. Vitamin D deficiency: Vitamin D low, but near target. Cont Vit D and follow levels as an outpatient. 5. Anemia: Mild at baseline. History of normal iron studies normal. Post-op anemia noted. No need for CARLOS at present. CBC pending. 6. L Hip Fx: After mechanical fall. S/p L-hip cephalomedullary nailing . Management per Ortho. Now in inpatient rehab and improving. Possibly for d/c 10/12. 7. UTI: Urine cx with staph species from 10/05. Abx noted. 8. Hyperkalemia: Mild. Resolved. Continue dietary management. D/w patient and RN. Subjective 24 Hr Interval Summary Free Text/Dictation Seen for JONO/CKD4. No acute events. Vitals stable, BPs in range. No complaints. Meds reviewed. Labs pending. Constitutional: no complaints Respiratory: no complaints Cardiovascular: no complaints Gastrointestinal: no complaints Genitourinary: no complaints, other (voiding well) Musculoskeletal: no complaints, other (denies hip pain) Skin: no complaints Neurologic: no complaints Exam/Review of Systems Vital Signs Vitals Vital Signs Date Time Temp Pulse Resp B/P Pulse Ox O2 Delivery O2 Flow Rate FiO2 10/11/17 02:00 98.2 74 18 126/79 97 Intake and Output 10/10/17 10/10/17 10/11/17 15:00 23:00 07:00 Intake Total 1700 ml 100 ml Output Total 1200 ml 950 ml Balance 500 ml -850 ml Exam Constitutional: alert, oriented, well developed Psych: nl mood/affect Head: atraumatic, normocephalic ENMT: mucosa pink and moist Neck: non-tender, supple Respiratory: clear to auscultation, normal air movement Cardiovascular: regular rate and rhythm Gastrointestinal: non-tender, soft Musculoskeletal: nl extremities to inspection, other (no edema) Neurological: nl mental status, nl speech Skin: nl turgor Results Result Diagram: 10/10/17 1056 Results 24 hrs Laboratory Tests Test 10/10/17 10:56 Sodium Level 137 Potassium Level 4.4 Chloride Level 104 Carbon Dioxide Level 21 Anion Gap 16 Blood Urea Nitrogen 52 H Creatinine 3.15 H Glucose Level 141 # Calcium Level 8.9 Medications Medications Current Medications Ticagrelor (Brilinta) 90 mg Q12 PO Last administered on 10/10/17 21:25; Admin Dose 90 MG; Start 10/05/17 at 22:00 Ranolazine (Ranexa) 500 mg BID PO Last administered on 10/10/17 21:06; Admin Dose 500 MG; Start 10/05/17 at 22:00 Famotidine (Pepcid) 20 mg DAILY PO Last administered on 10/10/17 09:12; Admin Dose 20 MG; Start 10/06/17 at 09:00 Isosorbide Mononitrate (Imdur) 30 mg DAILY PO Last administered on 10/10/17 09:12; Admin Dose 30 MG; Start 10/06/17 at 09:00 Lactulose (Enulose) 20 gm BID PRN PO CONSTIPATION; Start 10/05/17 at 22:00 Magnesium Oxide (Mag-Ox 400) 400 mg DAILY PO Last administered on 10/10/17 09 :13; Admin Dose 400 MG; Start 10/06/17 at 09:00 Allopurinol (Zyloprim) 300 mg DAILY PO Last administered on 10/10/17 09:13; Admin Dose 300 MG; Start 10/06/17 at 09:00 Aspirin (Aspirin) 81 mg BID PO Last administered on 10/10/17 21:07; Admin Dose 81 MG; Start 10/05/17 at 22:00; Stop 11/16/17 at 09:01 Aspirin (Aspirin) 81 mg DAILY PO ; Start 11/17/17 at 09:00 Atorvastatin Calcium (Lipitor) 40 mg DAILY@21 PO Last administered on 21:07; Admin Dose 40 MG; Start 10/05/17 at 22:00 Cholecalciferol (Vitamin D) 2,000 unit DAILY PO Last administered on 09:13; Admin Dose 2,000 UNIT; Start 10/06/17 at 09:00 Docusate Sodium (Colace) 100 mg BID PO Last administered on 10/10/17 21:07; Admin Dose 100 MG; Start 10/06/17 at 09:00 Magnesium Hydroxide (Milk Of Mag) 30 ml BID PRN PO CONSTIPATION Last administered on 10/06/17 09:11; Admin Dose 30 ML; Start 10/05/17 at 23:00 Bisacodyl (Dulcolax Supp) 10 mg DAILY PRN [place] CONSTIPATION; Start 10/05/17 at 23:00 Acetaminophen (Tylenol Tab) 650 mg Q4H PRN PO PAIN; Start 10/05/17 at 23:00 Acetylcysteine (Nac) 600 mg BID PO Last administered on 10/10/17 21:07; Admin Dose 600 MG; Start 10/08/17 at 10:30; Stop 10/15/17 at 10:29 Carvedilol (Coreg) 9.375 mg BID PO Last administered on 10/10/17 21:09; Admin Dose 9.375 MG; Start 10/09/17 at 21:00 Tamsulosin HCl (Flomax) 0.8 mg DAILY@21 PO Last administered on 10/10/17 21: 08; Admin Dose 0.8 MG; Start 10/09/17 at 21:00 Finasteride (Proscar) 5 mg DAILY PO Last administered on 10/10/17 09:13; Admin Dose 5 MG; Start 10/09/17 at 13:00 ROGERS MCDONALD Oct 11, 2017 07:25
[2017-10-11 07:36] LABS: BASOPHIL # 0.1 10^3/ul (0.0-0.1); BASOPHILS % 0.5 % (0.0-2.0); EOSINOPHILS # 0.4 10^3/ul (0.0-0.5); EOSINOPHILS % 4.3 % (0.0-7.0); HEMATOCRIT 33.5 % (42.0-52.0); HEMOGLOBIN 10.6 g/dl (14.0-18.0); LYMPHOCYTES # 1.1 10^3/ul (0.8-2.9); LYMPHOCYTES % 10.8 % (15.0-51.0); MEAN CORPUSCULAR HEMOGLOBIN 28.8 pg (29.0-33.0); MEAN CORPUSCULAR HGB CONC 31.6 g/dl (32.0-37.0); MEAN PLATELET VOLUME 9.3 fl (7.4-10.4); MONOCYTES % 9.6 % (0.0-11.0); NEUTROPHIL # 7.4 10^3/ul (1.6-7.5); PLATELET COUNT 345 10^3/UL (140-415); RED BLOOD COUNT 3.68 10^6/ul (4.70-6.10); RED CELL DISTRIBUTION WIDTH 14.6 % (11.5-14.5); WHITE BLOOD COUNT 10.1 10^3/ul (4.8-10.8)
[2017-10-11 08:00] VITALS: BP 160/75; RESP 18
[2017-10-11 08:19] LABS: ALBUMIN 3.5 g/dl (3.3-4.9); CALCIUM 9.1 mg/dl (8.4-10.2); CREATININE 3.37 mg/dl (0.61-1.24); MAGNESIUM 2.6 mg/dl (1.7-2.5); PHOSPHORUS 5.4 mg/dl (2.5-4.9); POTASSIUM 4.3 mmol/L (3.5-5.1)
[2017-10-11] MEDS: TICAGRELOR 90 MG TABLET PO SCH (09:36)
[2017-10-11] MEDS: ACETYLCYSTEINE 600 MG CAP PO SCH (09:36)
[2017-10-11] MEDS: DOCUSATE SODIUM 100 MG CAP PO SCH (09:36)
[2017-10-11] MEDS: ASPIRIN 81 MG TAB PO SCH (09:36)
[2017-10-11] MEDS: MAGNESIUM OXIDE 400 MG TAB PO SCH (09:36)
[2017-10-11] MEDS: RANOLAZINE (SR) 500 MG TAB PO SCH (09:37)
[2017-10-11] MEDS: ALLOPURINOL 300 MG TAB PO SCH (09:37)
[2017-10-11] MEDS: ISOSORBIDE MONONITRATE(SR)30 MG TAB PO SCH (09:37)
[2017-10-11] MEDS: CHOLECALCIFEROL 2,000 UNIT CAP PO SCH (09:37)
[2017-10-11] MEDS: FAMOTIDINE 20 MG TAB PO SCH (09:37)
[2017-10-11] MEDS: FINASTERIDE 5 MG TAB PO SCH (09:47)
--- NOTE | 2017-10-11 09:58 | CONS ---
Date/Time of Note Date/Time of Note DATE: 10/11/17 TIME: 09:58 Consult Date/Type/Reason Admit Date/Time Oct 05, 2017 at 21:14 Type of Consultation: cardiology Subjective Patient currently resting. He continues to progress with the rehabilitative program Objective Vital Signs Date Time Temp Pulse Resp B/P Pulse Ox O2 Delivery O2 Flow Rate FiO2 10/11/17 02:00 98.2 74 18 126/79 97 Intake and Output 10/10/17 10/10/17 10/11/17 15:00 23:00 07:00 Intake Total 1700 ml 100 ml Output Total 1200 ml 950 ml Balance 500 ml -850 ml sba ambulation Results/Medications Result Diagram: 10/11/1731 10/11/1731 Results 24 hrs Laboratory Tests Test 10/10/17 10:56 10/11/17 06:31 Sodium Level 137 140 Potassium Level 4.4 4.3 Chloride Level 104 105 Carbon Dioxide Level 21 21 Anion Gap 16 18 H Blood Urea Nitrogen 52 H 56 H Creatinine 3.15 H 3.37 H Glucose Level 141 # 105 Calcium Level 8.9 9.1 White Blood Count 10.1 # Red Blood Count 3.68 L Hemoglobin 10.6 L Hematocrit 33.5 L Mean Corpuscular Volume 91.0 Mean Corpuscular Hemoglobin 28.8 L Mean Corpuscular Hemoglobin Concent 31.6 L Red Cell Distribution Width 14.6 H Platelet Count 345 # Mean Platelet Volume 9.3 Neutrophils % 73.0 Lymphocytes % 10.8 L Monocytes % 9.6 Eosinophils % 4.3 Basophils % 0.5 Nucleated Red Blood Cells % 0.0 Neutrophils # 7.4 Lymphocytes # 1.1 Monocytes # 1.0 H Eosinophils # 0.4 Basophils # 0.1 Nucleated Red Blood Cells # 0.0 Phosphorus Level 5.4 H Magnesium Level 2.6 H Albumin 3.5 Medications Current Medications Ticagrelor (Brilinta) 90 mg Q12 PO Last administered on 10/11/17 09:36; Admin Dose 90 MG; Start 10/05/17 at 22:00 Ranolazine (Ranexa) 500 mg BID PO Last administered on 10/11/17 09:37; Admin Dose 500 MG; Start 10/05/17 at 22:00 Famotidine (Pepcid) 20 mg DAILY PO Last administered on 10/11/17 09:37; Admin Dose 20 MG; Start 10/06/17 at 09:00 Isosorbide Mononitrate (Imdur) 30 mg DAILY PO Last administered on 10/11/17 09:37; Admin Dose 30 MG; Start 10/06/17 at 09:00 Lactulose (Enulose) 20 gm BID PRN PO CONSTIPATION; Start 10/05/17 at 22:00 Magnesium Oxide (Mag-Ox 400) 400 mg DAILY PO Last administered on 10/11/17 09 :36; Admin Dose 400 MG; Start 10/06/17 at 09:00 Allopurinol (Zyloprim) 300 mg DAILY PO Last administered on 10/11/17 09:37; Admin Dose 300 MG; Start 10/06/17 at 09:00 Aspirin (Aspirin) 81 mg BID PO Last administered on 10/11/17 09:36; Admin Dose 81 MG; Start 10/05/17 at 22:00; Stop 11/16/17 at 09:01 Aspirin (Aspirin) 81 mg DAILY PO ; Start 11/17/17 at 09:00 Atorvastatin Calcium (Lipitor) 40 mg DAILY@21 PO Last administered on 21:07; Admin Dose 40 MG; Start 10/05/17 at 22:00 Cholecalciferol (Vitamin D) 2,000 unit DAILY PO Last administered on 09:37; Admin Dose 2,000 UNIT; Start 10/06/17 at 09:00 Docusate Sodium (Colace) 100 mg BID PO Last administered on 10/11/17 09:36; Admin Dose 100 MG; Start 10/06/17 at 09:00 Magnesium Hydroxide (Milk Of Mag) 30 ml BID PRN PO CONSTIPATION Last administered on 10/06/17 09:11; Admin Dose 30 ML; Start 10/05/17 at 23:00 Bisacodyl (Dulcolax Supp) 10 mg DAILY PRN [place] CONSTIPATION; Start 10/05/17 at 23:00 Acetaminophen (Tylenol Tab) 650 mg Q4H PRN PO PAIN; Start 10/05/17 at 23:00 Acetylcysteine (Nac) 600 mg BID PO Last administered on 10/11/17 09:36; Admin Dose 600 MG; Start 10/08/17 at 10:30; Stop 10/15/17 at 10:29 Carvedilol (Coreg) 9.375 mg BID PO Last administered on 10/11/17 09:36; Admin Dose 9.375 MG; Start 10/09/17 at 21:00 Tamsulosin HCl (Flomax) 0.8 mg DAILY@21 PO Last administered on 10/10/17 21: 08; Admin Dose 0.8 MG; Start 10/09/17 at 21:00 Finasteride (Proscar) 5 mg DAILY PO Last administered on 10/11/17 09:47; Admin Dose 5 MG; Start 10/09/17 at 13:00 Assessment/Plan Additional Assessment/Plan Rehabilitation- left intertrochanteric hip fracture status post cephalomedullary nailing. Excellent progress, anticipate dc tomorrow Coronary artery disease. Chronic kidney disease. Hypertension. Hyperlipidemia. BPH. Gout. ALYCIA MYERS MD Oct 11, 2017 09:58
--- NOTE | 2017-10-11 14:36 | CONS ---
Date/Time of Note Date/Time of Note DATE: 10/11/17 TIME: 14:35 Assessment/Plan Assessment/Plan Chief Complaint/Hosp Course 67-year-old male with a history of coronary artery disease with multiple stent placed in the past, who is transferred to acute rehabilitation unit for further complex interdisciplinary rehab activities after patient had left hip cephalo- medullary nailing. 1. Mechanical fall with left closed displaced femoral neck fracture. Status post Left hip cephalomedullary nailing -10/03/2017. -Continue PT/OT eval and treatment. -Follow-up with orthopedics in 1-2 weeks. 2. Coronary artery disease with multiple PCI with multiple stents. -Continue aspirin/melena/beta-trinity/nitrates/statin. 3. Acute on CKD, Stage IV.Baseline creatinine 2.5-2.9. Renal function had worsened slightly. -Follow-up with nephrology recommendations. -Monitor renal function closely. 4. Hypertension: Stable. -Continue antihypertensives with adjustment as needed 5. Gout -on allopurinol 6. BPH -On Flomax and Proscar. 7. Vitamin D deficiency. -Continue replacement. 8. Constipation. Resolved. -Continue stool softeners. Discontinue laxatives. DVT prophylaxis: Aspirin 81 mg twice daily along with Brilinta per orthopedic recommendations. Agree with DC plan. Recommend nephrology outpatient follow-up next week-Tuesday. Patient was seen in collaboration with . Problems: Consultation Date/Type/Reason Admit Date/Time Oct 05, 2017 at 21:14 Type of Consultation: cardiology 24 HR Interval Summary Free Text/Dictation Getting discharged today Exam/Review of Systems Vital Signs Vitals Vital Signs Date Time Temp Pulse Resp B/P Pulse Ox O2 Delivery O2 Flow Rate FiO2 10/11/17 08:00 98.0 77 18 160/75 98 Intake and Output 10/10/17 10/10/17 10/11/17 15:00 23:00 07:00 Intake Total 1700 ml 100 ml Output Total 1200 ml 950 ml Balance 500 ml -850 ml Exam General: Well developed,adequately built, not in any acute distress . HEENT: Normocephalic, Atraumatic, No laceration or hematoma; Eyes: PEERL, Conjunctiva clear, Anicteric sclera Neck: Supple without any lymphadenopathy, nontender, no JVD, no carotid bruits, trachea midline, no thyromegaly Cardiac: S1, S2 auscultated, regular rhythm and rate, no mumurs or gallop Pulmonary: Normal respiratory effort. Chest clear to auscultation bilaterally, no adventitious breath sounds GI: Protuberant abdomen. Soft, non-distended, non tender, no masses, no rebound tenderness or guarding. Bowel sounds active on all four quadrants Genitourinary: Deferred Extremities: Left hip fracture with surgical incision/dressing intact. No cyanosis, clubbing, or edema. Pulses [2+] bilaterally. Full ROM on all four extremities. No focal weakness appreciated. Neurologic: Alert to person, place, time, and situation. Affect appropriate, intact sensation. Skin: Clean,dry, and intact. No ecchymosis, no rashes, or lesions Results Result Diagram: 10/11/1763010/11/17630 Results 24 hrs Laboratory Tests Test 10/11/17 06:31 White Blood Count 10.1 # Red Blood Count 3.68 L Hemoglobin 10.6 L Hematocrit 33.5 L Mean Corpuscular Volume 91.0 Mean Corpuscular Hemoglobin 28.8 L Mean Corpuscular Hemoglobin Concent 31.6 L Red Cell Distribution Width 14.6 H Platelet Count 345 # Mean Platelet Volume 9.3 Neutrophils % 73.0 Lymphocytes % 10.8 L Monocytes % 9.6 Eosinophils % 4.3 Basophils % 0.5 Nucleated Red Blood Cells % 0.0 Neutrophils # 7.4 Lymphocytes # 1.1 Monocytes # 1.0 H Eosinophils # 0.4 Basophils # 0.1 Nucleated Red Blood Cells # 0.0 Sodium Level 140 Potassium Level 4.3 Chloride Level 105 Carbon Dioxide Level 21 Anion Gap 18 H Blood Urea Nitrogen 56 H Creatinine 3.37 H Glucose Level 105 Calcium Level 9.1 Phosphorus Level 5.4 H Magnesium Level 2.6 H Albumin 3.5 Medications Medications Current Medications Ticagrelor (Brilinta) 90 mg Q12 PO Last administered on 10/11/17 09:36; Admin Dose 90 MG; Start 10/05/17 at 22:00 Ranolazine (Ranexa) 500 mg BID PO Last administered on 10/11/17 09:37; Admin Dose 500 MG; Start 10/05/17 at 22:00 Famotidine (Pepcid) 20 mg DAILY PO Last administered on 10/11/17 09:37; Admin Dose 20 MG; Start 10/06/17 at 09:00 Isosorbide Mononitrate (Imdur) 30 mg DAILY PO Last administered on 10/11/17 09:37; Admin Dose 30 MG; Start 10/06/17 at 09:00 Lactulose (Enulose) 20 gm BID PRN PO CONSTIPATION; Start 10/05/17 at 22:00 Magnesium Oxide (Mag-Ox 400) 400 mg DAILY PO Last administered on 10/11/17 09 :36; Admin Dose 400 MG; Start 10/06/17 at 09:00 Allopurinol (Zyloprim) 300 mg DAILY PO Last administered on 10/11/17 09:37; Admin Dose 300 MG; Start 10/06/17 at 09:00 Aspirin (Aspirin) 81 mg BID PO Last administered on 10/11/17 09:36; Admin Dose 81 MG; Start 10/05/17 at 22:00; Stop 11/16/17 at 09:01 Aspirin (Aspirin) 81 mg DAILY PO ; Start 11/17/17 at 09:00 Atorvastatin Calcium (Lipitor) 40 mg DAILY@21 PO Last administered on 21:07; Admin Dose 40 MG; Start 10/05/17 at 22:00 Cholecalciferol (Vitamin D) 2,000 unit DAILY PO Last administered on 09:37; Admin Dose 2,000 UNIT; Start 10/06/17 at 09:00 Docusate Sodium (Colace) 100 mg BID PO Last administered on 10/11/17 09:36; Admin Dose 100 MG; Start 10/06/17 at 09:00 Magnesium Hydroxide (Milk Of Mag) 30 ml BID PRN PO CONSTIPATION Last administered on 10/06/17 09:11; Admin Dose 30 ML; Start 10/05/17 at 23:00 Bisacodyl (Dulcolax Supp) 10 mg DAILY PRN [place] CONSTIPATION; Start 10/05/17 at 23:00 Acetaminophen (Tylenol Tab) 650 mg Q4H PRN PO PAIN; Start 10/05/17 at 23:00 Acetylcysteine (Nac) 600 mg BID PO Last administered on 10/11/17 09:36; Admin Dose 600 MG; Start 10/08/17 at 10:30; Stop 10/15/17 at 10:29 Carvedilol (Coreg) 9.375 mg BID PO Last administered on 10/11/17 09:36; Admin Dose 9.375 MG; Start 10/09/17 at 21:00 Tamsulosin HCl (Flomax) 0.8 mg DAILY@21 PO Last administered on 10/10/17 21: 08; Admin Dose 0.8 MG; Start 10/09/17 at 21:00 Finasteride (Proscar) 5 mg DAILY PO Last administered on 10/11/17 09:47; Admin Dose 5 MG; Start 10/09/17 at 13:00 ADIEL SOLO NP Oct 11, 2017 14:36
[2017-11-17] MEDS ORDERED: ASPIRIN 81 MG TAB PO SCH (09:00)
== END 2017-10-11 16:30 | disposition home health service (06) | DRG 560 ==
LOC: VRC 21:14
PROVIDERS: ADMIT Physical Medicine & Rehabilitation; ATTEND Internal Medicine Pulmonary Disease
PROC: F08Z1ZZ Dressing Techniques Treatment (ICD-10-PCS; principal; 2017-10-05)
PROC: F08Z0ZZ Bathing/Showering Techniques Treatment (ICD-10-PCS; 2017-10-05)
PROC: F08Z2ZZ Grooming/Personal Hygiene Treatment (ICD-10-PCS; 2017-10-05)
PROC: F07Z5ZZ Bed Mobility Treatment (ICD-10-PCS; 2017-10-05)
PROC: F07Z8ZZ Transfer Training Treatment (ICD-10-PCS; 2017-10-05)
PROC: F07Z9ZZ Gait Training/Functional Ambulation Treatment (ICD-10-PCS; 2017-10-05)
DX: S72.002D Fracture of unspecified part of neck of left femur, subsequent encounter for closed fracture with routine healing (principal); N18.4 Chronic kidney disease, stage 4 (severe); N17.9 Acute kidney failure, unspecified; N39.0 Urinary tract infection, site not specified; W19.XXXD Unspecified fall, subsequent encounter; I25.10 Atherosclerotic heart disease of native coronary artery without angina pectoris; Z95.5 Presence of coronary angioplasty implant and graft; I12.9 Hypertensive chronic kidney disease with stage 1 through stage 4 chronic kidney disease, or unspecified chronic kidney disease; M10.9 Gout, unspecified; N40.0 Benign prostatic hyperplasia without lower urinary tract symptoms; E53.8 Deficiency of other specified B group vitamins; K59.00 Constipation, unspecified; E78.5 Hyperlipidemia, unspecified; D64.9 Anemia, unspecified; B95.8 Unspecified staphylococcus as the cause of diseases classified elsewhere; E87.5 Hyperkalemia; I25.2 Old myocardial infarction
CPT/HCPCS: 80048; 80053; 80069; 81001; 83735; 85025; 87081; 87086; 97110; 97112; 97116; 97150; 97162; 97167; 97530; 97535; J0690

== ENCOUNTER → 2017-10-20 | Outpatient (CLI) | payer MEDICARE, OTHER ==
[~2017-10-20] MED LIST changes: -AMLO2.5T78 PO
--- NOTE | 2017-10-20 15:45 | PN ---
Date/Time of Note Date/Time of Note DATE: 10/20/17 TIME: 15:38 Outpatient Progress Note Chief Complaint 2 weeks status post ORIF for basicervical fracture of the left femur. HPI 67-year-old male presents today for his two-week postop visit status post ORIF for basicervical fracture of the left femur with cephalo-medullary nailing.Since the surgery, patient states that his pain is minimal. Currently not taking any pain medication. Denies any falls or injury status post surgery. Continues to use front wheeled walker for assisted ambulation. Has weakness to the hip but states that it has gradually improved since the surgery. Denies any chest pain/tightness. Denies any shortness of breath. Denies any calf pain. Review of Systems Const: No Fever, no chills, no Fatigue, normal appetite, no diaphoresis. Resp: No SOB, no wheezing, no chest pain. CV: No chest pain, no palpitaions, no KAMARA. Physical Exam Blood pressure is 132/62, temperature is 97.8, pulse is 66, respiratory rate is 12, height is 5 foot 8 inches, weight is 170 pounds General Appearance: well-developed, well-nourished, in no acute distress. Left hip: Surgical wound 3 to the left hip/distal femur are clean dry and intact with no signs of infection. Skin is well approximated and healing well. Shan intact. No tenderness to palpation to the hip on exam. Patient is able to actively flex the hip up to 120. 4+/5 strength on resistance with flexion and extension. No pain with range of motion. Normal sensory examination to light touch. Negative Homans sign. Imaging: X-rays to the left hip/femur on 10/20/2017 showing intramedullary sujatha in place with no signs of loosening. Screws in place with no complication. Fracture To the femoral neck stable. Continues to heal. Allergies Coded Allergies: Penicillins (Unverified Allergy, Unknown, 09/03/17) Family Hx Patient History: Cardiac disorder 33 FATHER 32 MOTHER Hypertension 33 FATHER 32 MOTHER Assessment/Plan * Continue assisted ambulation with front wheeled walker. At home therapy discussed with patient today in regards to strengthening as well as improve range of motion. Patient may gradually transition in regards to assisted ambulatory device to single-point cane when he feels comfortable. If patient continues to progress well he may trial independent ambulation as tolerated. Patient made aware that it may take several weeks for him to reach this point. * Patient is currently on Plavix. Patient is also taking aspirin for anticoagulation therapy. * Pain medications as needed. * Follow-up in 6 weeks for repeat evaluation. Patient may be taking a trip to [facility] in November 2016 and this is okay but patient was made aware that while on the flight, standing and moving every 45min- hour as a preventative measure in regards to DVT and patient and patient's son state understanding. Medications Home Meds Active Scripts Lactulose* (Lactulose*) 20 Gm/30 Ml Solution, 20 GM PO BID Y for CONSTIPATION, # 30 Prov:ADIEL SOLO NP 10/05/17 Hydrocodone Bit-Acetaminophen (Hydrocodone Bit-APAP) 5-325MG Tablet, 1 TAB PO Q4H Y for PAIN LEVEL 1-5, #30 TAB Prov:ADIEL SOLO NP 10/05/17 Aspirin (Aspirin) 81 Mg Chew, 81 MG PO BID for 40 Days, TAB Change to aspirin 81 mg p.o. daily after 6 weeks. Prov:ADIEL SOLO NP 10/05/17 Tamsulosin Hcl* (Flomax*) 0.4 Mg Cap.er.24h, 0.4 MG PO HS, #30 CAP Prov:ADIEL SOLO NP 09/06/17 Atorvastatin* (Atorvastatin*) 40 Mg Tablet, 40 MG PO DAILY@21 for 30 Days, TAB 5 Refills Prov:TENA AGUILAR S. 07/21/16 Famotidine* (Famotidine*) 20 Mg Tablet, 20 MG PO DAILY for 30 Days, TAB 3 Refills Prov:TENA AGUILAR S. 07/21/16 Reported Medications Sennosides* (Senna Lax*) 8.6 Mg Tablet, 1 TAB PO BID, TAB 10/01/17 Magnesium Oxide* (Magnesium Oxide*) 400 Mg Tablet, 400 MG PO DAILY, TAB 10/01/17 Carvedilol* (Carvedilol*) 3.125 Mg Tablet, 3.125 MG PO BID, #60 TAB 09/03/17 Isosorbide Mononitrate* (Isosorbide Mononitrate*) 30 Mg Tab.er.24h, 30 MG PO QAM , TAB 09/03/17 Ticagrelor* (Brilinta*) 90 Mg Tablet, 90 MG PO Q12, TAB 09/03/17 Allopurinol* (Allopurinol*) 300 Mg Tablet, 300 MG PO DAILY, TAB 09/03/17 Ranolazine* (Ranexa*) 500 Mg Tab.sr.12h, 500 MG PO BID, TAB 09/03/17 JOHN SCHWARTZ PA-C Oct 20, 2017 15:45
--- NOTE | 2017-10-20 23:23 | RADRPT ---
PROCEDURE: XR Left hip and pelvis. CLINICAL INDICATION: Left hip pain and pelvic pain. TECHNIQUE: 3 views. Frontal pelvis. Frontal and lateral left hip. COMPARISON: 10/05/2017. FINDINGS: As seen previously, there has been open reduction and internal fixation of the left hip with a sujatha i n the shaft of the femur, a screw in the neck of the femur, and a locking screw distally in the shaf t of the femur. Lateral skin neela are noted. Alignment is satisfactory. The right hip is normal. Vascular calcifications are present consistent with atherosclerosis. There is no lytic or blastic lesion. The articular surfaces are intact. IMPRESSION: 1. Satisfactory postoperative changes of the left hip and femur. 2. Unremarkable right hip. 3. Atherosclerosis. 4. Otherwise unremarkable study. RPTAT: QQ .Joe Deluna MD, Date Time Electronically viewed and signed by .Joe Deluna MD, on 10/20/2017 23:23 .R/
== END | disposition home or self-care (01) ==
LOC: HKI 14:44
PROVIDERS: ATTEND Orthopaedic Surgery Adult Reconstructive Orthopaedic Surgery
DX: Z09 Encounter for follow-up examination after completed treatment for conditions other than malignant neoplasm (principal); Z96.642 Presence of left artificial hip joint; Z88.0 Allergy status to penicillin; Z79.82 Long term (current) use of aspirin
CPT/HCPCS: 73502

== ENCOUNTER → 2017-12-01 | Outpatient (CLI) | END | disposition home or self-care (01) ==